=== PATIENT | female | born 1955 | race Caucasian/White ===

== ENCOUNTER 2018-04-08 07:36 | Day surgery (SDC) | payer OTHER ==
[~2018-04-08 07:36] MED LIST: BRIMONIDINE 0.2% OPHTH DROPS 5 ML ONE; BSS/LIDOCAINE/EPINEPHRINE 1 ML SYRINGE ONE; CYCLOPENTOLATE 1% OPHTH DROPS 2 ML ONE; EPINEPHrine 1 MG/ML AMP ONE; KETOROLAC 0.45% OPHTH DROPS ONE; PHENYLEPHRINE 2.5% OPHTH 2 ML DROPS ONE; PROPARACAINE 0.5% OPHTH DROPS 15 ML ONE; TIMOLOL 0.5% OPHTH DROPS ONE; TRIAMCIN/MOXIFLOX OPHTHALMIC 0.6 ML VIAL IO ONE; VANCOMYCIN OPHTHALMI 8MG/0.8ML 8 MG/0.8 ML SYRINGE IO ONE
[2018-04-08] MEDS ORDERED: KETOROLAC 0.45% OPHTH DROPS LEFTEYE ONE (07:51)
[2018-04-08] MEDS ORDERED: PROPARACAINE 0.5% OPHTH DROPS 15 ML LEFTEYE ONE ×2 (07:51→09:21)
[2018-04-08] MEDS ORDERED: PHENYLEPHRINE 2.5% OPHTH 2 ML DROPS LEFTEYE ONE (07:51)
[2018-04-08] MEDS ORDERED: LACTATED RINGERS 500 ML IV ONE (07:51)
[2018-04-08] MEDS ORDERED: CYCLOPENTOLATE 1% OPHTH DROPS 2 ML LEFTEYE ONE ×2 (07:51→09:22)
--- NOTE | 2018-04-08 08:42 | ANESTHESIA ---
Pre-Anesthesia VS, & Labs - Diagnosis Left eye senile combined cataract - Procedure Left eye cataract extraction with IOL implant Vital Signs: Temp Pulse Resp BP Pulse Ox 36.6 C 79 18 113/71 97 04/08/18 07:52 04/08/18 07:52 04/08/18 07:52 04/08/18 07:52 04/08/18 07:52 Height 5 ft 6 in Weight (kg) 81.9 kg - NPO >8 hours - Is Patient ?: No Home Medications and Allergies Home Medications: Ambulatory Orders Gabapentin [Neurontin] 300 mg PO TID 04/07/18 Losartan Potassium 50 mg PO DAILY 04/07/18 hydroCHLOROthiazide [Hydrodiuril] 12.5 mg PO DAILY 04/07/18 raNITIdine [Zantac] 150 mg PO DAILY 04/07/18 amLODIPine [Norvasc] PO DAILY 04/08/18 Gabapentin [Neurontin] 300 mg PO TID 04/07/18 Losartan Potassium 50 mg PO DAILY 04/07/18 hydroCHLOROthiazide [Hydrodiuril] 12.5 mg PO DAILY 04/07/18 raNITIdine [Zantac] 150 mg PO DAILY 04/07/18 Allergies/Adverse Reactions: Allergies Allergy/AdvReac Type Severity Reaction Status Date / Time Penicillins AdvReac Hives Verified 04/07/18 14:12 Sulfa (Sulfonamide AdvReac Hives Verified 04/07/18 14:12 Antibiotics) Anes History & Medical History - Anesthetic History Anesthesia Complications: reports: No previous complications - Medical History Cardiovascular: reports: Hypertension, Pulmonary embolism Pulmonary: reports: None Gastrointestinal: reports: GERD (poorly controlled) Urinary: reports: None Neuro: reports: Peripheral neuropathy (bilateral leg neuropathy) Musculoskeletal: reports: Chronic back pain Endocrine/Autoimmune: reports: Other (thyroid nodules) Blood Disorders: reports: None Skin: reports: None Smoking Status: Former smoker (Quit 5 years ago) Psychosocial: reports: Alcohol (2 mixed drinks per day) - Surgical History Eyes Ears Nose Throat (EENT): Cataracts Gynecologic: Other (Ectopic pregnacy x2, breast lumpectomy) Orthopedic: Spine surgery (Neck and back), Other (ganglion cyst removal) Exam General: Alert, Oriented x3, Cooperative, No acute distress Dental: Dentures full Upper Mouth Openin Fingerbreadth Neck Mobility: Reduced Mallampati classification: III Thyromental Distance: 4-6 cm Respiratory: Lungs clear, Normal breath sounds, No respiratory distress, No accessory muscle use Cardiovascular: Regular rate, Normal S1, Normal S2, No murmurs Mental/Cognitive Status: Alert/Oriented X3, Normal for patient Plan Anesthesia Type: MAC Consent for Procedure(s) Verified and Reviewed: Yes Code Status: Attempt Resuscitation ASA classification: 2-Mild systemic disease Is this case an emergency?: No
[2018-04-08] MEDS ORDERED: MIDAZOLAM 2 MG/2 ML VIAL IVP ONE (09:10)
[2018-04-08] MEDS ORDERED: EPINEPHrine 1 MG/ML AMP IVP ONE (09:20)
[2018-04-08] MEDS ORDERED: BRIMONIDINE 0.2% OPHTH DROPS 5 ML OPTH ONE (09:20)
[2018-04-08] MEDS ORDERED: BSS/LIDOCAINE/EPINEPHRINE 1 ML SYRINGE IO ONE (09:21)
[2018-04-08] MEDS ORDERED: TIMOLOL 0.5% OPHTH DROPS OPTH ONE (09:21)
[2018-04-08] MEDS ORDERED: CHONDR SULF/HYALURONATE SYRINGE IO ONE (09:21)
[2018-04-08 09:36] VITALS: BP 107/65
--- NOTE | 2018-04-08 12:07 | OPERATIVE REPORT ---
DATE OF SERVICE: 04/08/2018 Physician: John Mabry MD PREOPERATIVE DIAGNOSIS: Visually significant cataract, left eye. Cataract surgery was performed on the right eye in June 2012 by a different surgeon. POSTOPERATIVE DIAGNOSIS: Visually significant cataract, left eye. Cataract surgery was performed on the right eye in June 2012 by a different surgeon. PROCEDURE: Phacoemulsification with posterior chamber intraocular lens implant, left eye. SURGEON: John Mabry MD ANESTHESIA: Monitored anesthesia care. COMPLICATIONS: None. OPERATIVE INDICATIONS: This is a 62-year-old woman with progressive vision loss in the left eye due to 2-3+ nuclear sclerotic and 1+ posterior subcapsular cataract. Best corrected visual acuity was 20 /60 with glare to 20/400 in the left eye. Indications for surgery are overall decrease in vision, di fficulty seeing words on a computer screen, difficulty reading; difficulty seeing street signs, diffi culty driving at low light or at night, difficulty driving at night because of headlights from other vehicles, difficulty with glare or bright lights in any situation, and difficulty tracking a golf [employer] She was consented at length concerning risks and benefits of cataract surgery, after which she ex pressed a desire to proceed with surgery. OPERATIVE PROCEDURE: The patient was taken to the OR #3 and placed under monitored anesthesia care. A surgical timeout was conducted confirming correct patient, correct procedure, and correct surgical site. She was given topical anesthesia, and then prepped and draped in the usual sterile fashion. The eye was entered at the 6 and 3 o'clock positions. Intracameral Shugarcaine was injected into the anterior chamber, followed by Viscoat. A continuous-tear curvilinear capsulorrhexis was performed. The nucleus was hydrodissected and phacoemulsified. The cortex was evacuated using automated infusi on and aspiration. Provisc was injected in the capsular bag, and a 22.5 diopter intraocular lens was inserted in the bag. Approximately 0.8 mL of a mixture of triamcinolone, moxifloxacin, and vancomyc in was injected subconjunctivally in the superior quadrant for infection and inflammation prophylaxis . I and A was used to evacuate the viscoelastic materials. The eye was inflated to physiologic pres sure using balanced salt solution and found to be watertight. The patient was taken from the operati ng room in good condition and given postop instructions. TD: 04/08/2018 09:38
== END 2018-04-08 07:37 | disposition home or self-care (01) ==
LOC: SDS 07:36
PROVIDERS: ATTEND Ophthalmology
PROC: 08RK3JZ Replacement of Left Lens with Synthetic Substitute, Percutaneous Approach (ICD-10-PCS; principal; 2018-04-08 09:00)
DX: H25.812 Combined forms of age-related cataract, left eye (principal); I10 Essential (primary) hypertension; G62.9 Polyneuropathy, unspecified; Z87.891 Personal history of nicotine dependence; Z86.711 Personal history of pulmonary embolism
CPT/HCPCS: 66984; A9270; J3490; V2632

== ENCOUNTER 2018-08-27 14:34 | Outpatient (CLI) | payer OTHER ==
--- NOTE | 2018-08-27 14:59 | XRAY Report ---
Reason: COUGH Procedure Date: 08/27/2018 Accession Number: [id number] / [id number] Procedure: XR - Chest 2 View X-Ray CPT Code: 22381 FULL RESULT: EXAM: CHEST RADIOGRAPHY EXAM DATE: 08/27/2018 02:52 PM. CLINICAL HISTORY: Cough COMPARISON: None. TECHNIQUE: 2 views. FINDINGS: Lungs/Pleura: No evidence of lobar consolidation. There is reticular opacity within the lingula which probably represent scarring or atelectasis. No pleural effusion. No pneumothorax. Normal volumes. Mediastinum: Heart and mediastinal contours are unremarkable. Other: None. IMPRESSION: No acute intrathoracic plain film abnormality. RAD[facility] The call report notification system was initiated by Dr. Elle Fernando at 02:58 PM on 08/27/2018.
== END 2018-08-27 14:35 | disposition home or self-care (01) ==
LOC: DI 14:34
PROVIDERS: ATTEND Internal Medicine
DX: R05 Cough (principal)
CPT/HCPCS: 71046

== ENCOUNTER 2018-09-10 08:16 | Outpatient (CLI) | payer OTHER ==
--- NOTE | 2018-09-10 16:20 | Ultrasound Report ---
Reason: ABDOMINAL MASS,THYROID NODULES Procedure Date: 09/10/2018 Accession Number: [id number] / [id number] Procedure: US - Abdomen Complete CPT Code: FULL RESULT: EXAM: ABDOMEN ULTRASOUND EXAM DATE: 09/10/2018 09:44 AM. CLINICAL HISTORY: History of abdominal mass right anterior abdomen from exam in [place] years ago. Asymptomatic today. COMPARISON: None. TECHNIQUE: Real-time scanning was performed with static images obtained. FINDINGS: Liver: Upper limits of normal in size. Mild diffuse increased echotexture likely indicating fatty infiltration. 18.3 cm. Main portal vein flow: Hepatopetal. Gallbladder: Normal. No stones, wall thickening, or sonographic Stevenson's sign. Biliary System: Common bile duct measures 5 mm. No intrahepatic or extrahepatic ductal dilatation. Pancreas: Visualized portion is unremarkable. Kidneys: Right: 11.1 cm longitudinally. Normal. No contour-deforming mass, stones, or hydronephrosis. Left: 11.5 cm longitudinally. Normal. No contour-deforming mass, stones, or hydronephrosis. Spleen: 11.6 cm. Normal in size and echotexture. Aorta and Inferior Vena Cava: Unremarkable. Other: Targeted ultrasound with high-frequency linear transducer was performed of the right lower abdomen standing and supine with and without Valsalva. No masses or hernia appreciated. IMPRESSION: 1. No sonographic finding in the region of concern/history of palpable mass right anterior low abdominal wall. 2. Probable mild hepatic steatosis. 3. Otherwise no specific abnormalities demonstrated. [facility]
--- NOTE | 2018-09-11 10:21 | Ultrasound Report ---
Reason: ABDOMINAL MASS,THYROID NODULES Procedure Date: 09/10/2018 Accession Number: [id number] / [id number] Procedure: US - Head or Neck Soft Tissue CPT Code: FULL RESULT: EXAM: THYROID ULTRASOUND EXAM DATE: 09/10/2018 09:44 AM. CLINICAL HISTORY: ABDOMINAL MASS,THYROID NODULES. COMPARISON: None. TECHNIQUE: Real time sonographic imaging of the thyroid was performed by the sole splitter. Multiple uniforms sales representative static images were saved for review. FINDINGS: THYROID GLAND: Right Lobe: 5.4 x 1.6 x 1.8 cm, volume 8.4 cc. Normal background echotexture. Right Lobe Nodules: 1. Mid pole lateral 7 x 5 x 6 mm hypoechoic solid nodule. 2. Mid pole medial 6 x 5 x 6 mm hypoechoic solid nodule. 3. Lower pole 13 x 12 x 10 mm predominantly cystic complex nodule. Left Lobe: 4.8 x 1.6 x 1.7 cm, volume 6.9 cc. Normal background echotexture. Left Lobe Nodules: 1. Mid pole 3 x 2 x 3 mm solid calcified nodule. Isthmus: 0.2 cm AP. Isthmic Nodules: None. LYMPH NODES: There are a few bilateral jugular chain lymph nodes, measuring up to 13 x 5 x 5 mm at right level II neck and 12 x 5 x 5 mm at left level III neck. OTHER: None. IMPRESSION: 1. Bilateral thyroid nodules measuring up to 13 mm at the lower pole of the right thyroid lobe. Recommend continued ultrasound surveillance in 12-24 months. 2. Few nonspecific bilateral jugular chain lymph nodes. Management recommendations are based on 2015 [place] [employer] Management Guidelines for Adult Patients with Thyroid Nodules and Differentiated Thyroid Cancer. [facility]
== END 2018-09-10 08:17 | disposition home or self-care (01) ==
LOC: DI 08:16
PROVIDERS: ATTEND Internal Medicine
DX: R19.00 Intra-abdominal and pelvic swelling, mass and lump, unspecified site (principal); E04.2 Nontoxic multinodular goiter
CPT/HCPCS: 76536; 76700

== ENCOUNTER 2019-05-03 12:47 | Outpatient (CLI) | payer MEDICARE, OTHER ==
--- NOTE | 2019-05-03 13:40 | Ultrasound Report ---
Reason: EDEMA Procedure Date: 05/03/2019 Accession Number: [id number] / [id number] Procedure: US - Duplex Ext Veins Right CPT Code: Final Report FULL RESULT: EXAM: RIGHT LOWER EXTREMITY VENOUS ULTRASOUND EXAM DATE: 05/03/2019 01:16 PM. CLINICAL HISTORY: EDEMA. COMPARISON: None. TECHNIQUE: Real-time sonographic vascular imaging was performed by the home connect lpn through the lower extremity utilizing both color-flow and Doppler spectral analysis. Multiple eligibility services representative static images were saved for review. FINDINGS: Common Femoral Vein (CFV): Normal. CFV-GSV Junction: Normal. Profunda Femoral Vein (PFV): Normal. Femoral Vein (FV) Prox: Normal. Femoral Vein (FV) Mid: Normal. Femoral Vein (FV) Dist: Normal. Popliteal Vein: Normal. Posterior Tibial Veins: Normal. Peroneal Veins: Normal. Other: None. IMPRESSION: No evidence for deep venous thrombosis. [facility]
== END 2019-05-03 12:48 | disposition home or self-care (01) ==
LOC: DI 12:47
PROVIDERS: ATTEND Internal Medicine
DX: R60.0 Localized edema (principal)

== ENCOUNTER 2019-12-13 12:05 | Outpatient (CLI) | payer MEDICARE, OTHER ==
[~2019-12-13 12:05] MED LIST changes: -BRIMONIDINE 0.2% OPHTH DROPS 5 ML ONE; -BSS/LIDOCAINE/EPINEPHRINE 1 ML SYRINGE ONE; +BUFFERED LIDOCAINE 10 ML SYRINGE ONE; -CYCLOPENTOLATE 1% OPHTH DROPS 2 ML ONE; -EPINEPHrine 1 MG/ML AMP ONE; -KETOROLAC 0.45% OPHTH DROPS ONE; -PHENYLEPHRINE 2.5% OPHTH 2 ML DROPS ONE; -PROPARACAINE 0.5% OPHTH DROPS 15 ML ONE; -TIMOLOL 0.5% OPHTH DROPS ONE; -TRIAMCIN/MOXIFLOX OPHTHALMIC 0.6 ML VIAL IO ONE; -VANCOMYCIN OPHTHALMI 8MG/0.8ML 8 MG/0.8 ML SYRINGE IO ONE
[2019-12-13] MEDS ORDERED: BUFFERED LIDOCAINE 10 ML SYRINGE IU ONE (14:10)
--- NOTE | 2019-12-16 13:34 | Ultrasound Report ---
ULTRASOUND GUIDED BIOPSY LEFT BREAST USING VACUUM DEVICE WITH MARKING DEVICE INSERTED AND POST DIGITA L MAMMOGRAPHIC IMAGIN12/13/2019 CLINICAL: Left breast nodule. PATIENT CONSENT: Risks (minor bleeding, infection, vasovagal reaction and repeat procedure), benefits and alternatives were explained to the patient and written informed consent was obtained. Correlation is made to exams dated: 11/25/2019 ultrasound and 11/25/2019 ultrasound - [facility]. An ultrasound guided biopsy using real-time ultrasound was performed for the mass located in the left breast at 12 o'clock middle depth. This was described on the previous ultrasound report. The skin was prepped in the usual manner. Local anesthetic was administered to the access site. A skin chito was made in the breast. The abnormality was approached from the lateral aspect. A 12 gauge biopsy n eedle was placed adjacent to the abnormality under ultrasound guidance. Once the needle was document ed to be in the correct location, three specimens were obtained using the [employer] system. A cli p was inserted into the biopsy cavity. A skin closure strip and a sterile dressing were applied to t he access site. Post procedure digital mammographic imaging demonstrates the location device at the targeted area and partial removal of the abnormality. The specimens were sent to the laboratory for pathological analysis. IMPRESSION: ULTRASOUND GUIDED BIOPSY BENIGN Ultrasound guided biopsy of the mass in the left breast at 12 o'clock middle depth was successful wit h no apparent post procedure complications. Pathology indicates benign fibrocystic changes (FC) with micro-calcifications present. Pathology results are concordant with imaging findings. Return to annual mammogram screening schedule is recommended. This exam was interpreted at Station ID: [id number]. Marquis White M.D., jr/spring:12/16/2019 13:24:13 BI-RADS CATEGORY: () - RECOMMENDATION: (ANNUAL) - Recommend routine annual screening mammography. [id number] return to screening LATERALITY: (B)
== END 2019-12-13 12:06 | disposition home or self-care (01) ==
LOC: DI 12:05
PROVIDERS: ATTEND Internal Medicine
DX: N60.12 Diffuse cystic mastopathy of left breast (principal); R92.0 Mammographic microcalcification found on diagnostic imaging of breast
CPT/HCPCS: 19083

== ENCOUNTER 2020-07-04 14:20 | Outpatient (CLI) | payer MEDICARE, OTHER ==
--- NOTE | 2020-07-04 16:12 | MRI Report ---
PROCEDURE: Lumbar Spine W/O INDICATIONS: LUMBAR SPINE TECHNIQUE: Noncontrast sagittal T1 spin echo and T2 fast echo, sagittal STIR, axial T1 and T2 fast spin echo thr ough the lumbar spine. In cases with scoliosis, additional coronal T2 fast spin echo may be performe d. COMPARISON: None. FINDINGS: Image quality: Excellent. Alignment and Curvature: No plain films are available for comparison. Thus, for numbering purposes, 5 lumbar type vertebral bodies will be presumed for the current report. This should be confirmed with plain film correlation prior to any lumbar spinal intervention. There is loss of normal lumbar lordo sis. Mild grade 1 retrolisthesis of L4 on L5 and L5 on S1. Bone Marrow: Marrow is of normal overall signal. No acute vertebral body compression fractures. Mi ld reactive signal within the endplates adjacent to the L3-L4, L4-L5, and L5-S1 intervertebral discs. Spinal Cord: Conus medullaris terminates at the upper L1 level. Visualized cord demonstrates normal signal and size. Paraspinous Soft Tissues: No paravertebral masses. T12-L1: Normal in appearance. L1-L2: Mild disc height loss and desiccation. Mild diffuse disc bulge. Mild facet and ligament fla vum hypertrophy. Mild epidural lipomatosis. Mild canal stenosis. No foraminal stenosis. L2-L3: Mild disc height loss and desiccation. Mild diffuse disc bulge. Mild facet and ligament fla vum hypertrophy. Mild epidural lipomatosis. Mild canal stenosis. Mild bilateral foraminal stenosis. L3-L4: Mild disc height loss and desiccation. Moderate facet hypertrophy. Mild ligament flavum hype rtrophy. Mild epidural lipomatosis. Mild canal stenosis. Mild left greater than right foraminal steno sis. L4-L5: Moderate disc height loss and desiccation. Mild diffuse disc bulge with superimposed small c entral protrusion. Mild facet and ligament flavum hypertrophy. Mild epidural lipomatosis. Mild canal stenosis. Mild right and moderate left foraminal stenosis. L5-S1: Moderate disc height loss and desiccation. Mild diffuse disc bulge with superimposed broad-b ased right posterolateral and far lateral protrusion/osteophyte. Mild facet and ligament flavum hyper trophy. Mild epidural lipomatosis. Moderate canal stenosis. Moderate left and severe right foraminal stenosis. Right L5 nerve root compression. IMPRESSION: 1. Multilevel degenerative disc and facet disease, in addition to epidural lipomatosis and ligamentum flavum hypertrophy. 2. Multilevel canal stenoses, worst at L5-S1 where there is moderate canal stenosis. 3. Multilevel foraminal stenoses, worst at L5-S1 where there is associated intraforaminal nerve root compression. Recommend correlation with clinical symptoms to ascertain relevance of this finding. Reviewed by: Carmen Gautam MD on 07/04/2020 4:11 PM PST Approved by: Carmen Gautam MD on 07/04/2020 4:11 PM PST Station ID: [id number]
--- NOTE | 2020-07-04 16:44 | MRI Report ---
PROCEDURE: Hip LT W/O INDICATIONS: L HIP PAIN TECHNIQUE: Noncontrast coronal T1 spin echo and STIR through the bony pelvis. Coronal and axial T2 fast spin ec ho with fat saturation, sagittal T1 spin echo, and oblique axial T2 fast spin echo with fat saturatio n through the hip. COMPARISON: None. FINDINGS: Image quality: Excellent. Bones and joints: Asymmetric moderate left hip joint osteoarthritic changes are seen with joint spac e narrowing, subchondral sclerosis and cyst formation. Marginal osteophyte formation is also noted. N o intraosseous lesions or fractures. No avascular necrosis of the femoral heads. The visualized low er lumbar spine appears normally aligned. Small to moderate amount of left hip joint effusion is see n, no gross intra-articular loose body. Tendons: The gluteus medius and minimus tendons appear intact, without associated muscle atrophy. T he iliopsoas tendon appears intact, without adjacent bursal fluid collections. The origin of the ham string tendon is intact at the ischial tuberosity. Labrum and cartilage: There is extensive superior anterior left hip labral tear. Diffuse thinning of articulating cartilages in left hip is also seen. The alpha angle of the femur is within normal limit s at less than 55 degrees. Soft tissues: Visualized muscles demonstrate normal bulk and internal signal. The proximal sciatic neurovascular bundle appears normal adjacent to the hamstring tendons. No free pelvic fluid. Bladde r wall thickness is normal. Genitourinary structures and bowel loops appear normal where visualized. IMPRESSION: 1. Asymmetric moderate left hip joint osteoarthritis. No hip fracture or dislocation. No evidence of avascular necrosis of femoral head. 2. Extensive superior anterior left hip labral tear. 3. No gross focal left hip muscle or tendon signal abnormality. Reviewed by: Sina Jackson MD on 07/04/2020 4:42 PM PST Approved by: Sina Jackson MD on 07/04/2020 4:42 PM PST Station ID: [id number]
== END 2020-07-04 14:21 | disposition home or self-care (01) ==
LOC: DI 14:20
PROVIDERS: ATTEND Physician Assistant
DX: M47.26 Other spondylosis with radiculopathy, lumbar region (principal); M51.17 Intervertebral disc disorders with radiculopathy, lumbosacral region; M48.07 Spinal stenosis, lumbosacral region; M25.552 Pain in left hip; M16.12 Unilateral primary osteoarthritis, left hip; S73.192A Other sprain of left hip, initial encounter

== ENCOUNTER 2020-08-31 14:47 | Outpatient (CLI) | payer MEDICARE, OTHER ==
[2020-08-31 15:06] LABS: BASOPHILS # (AUTO) 0.1 10^3/uL (0.0-0.1); BASOPHILS % (AUTO) 1.1 %; EOSINOPHILS # (AUTO) 0.1 10^3/uL (0.0-0.7); EOSINOPHILS % (AUTO) 2.5 %; HCT - HEMATOCRIT 41.1 % (37.0-47.0); HGB - HEMOGLOBIN 13.7 g/dL (12.0-16.0); LYMPHOCYTES # (AUTO) 1.2 10^3/uL (1.5-3.5); LYMPHOCYTES % (AUTO) 27.9 %; MEAN CORPUSCULAR HEMOGLOBIN 33.7 pg (27.0-31.0); MEAN CORPUSCULAR HGB CONC 33.3 g/dL (32.0-36.0); MEAN CORPUSCULAR VOLUME 101.2 fL (81.0-99.0); MEAN PLATELET VOLUME 9.9 fL (7.9-10.8); MONOCYTES # (AUTO) 0.6 10^3/uL (0.0-1.0); MONOCYTES % (AUTO) 12.4 %; NEUTROPHILS # (AUTO) 2.5 10^3/uL (1.5-6.6); NEUTROPHILS % (AUTO) 55.6 %; PLT - PLATELET COUNT 172 10^3/uL (130-450); RED BLOOD COUNT 4.06 10^6/uL (4.20-5.40); RED CELL DISTRIBUTION WIDTH 13.2 % (12.0-15.0); WHITE BLOOD COUNT 4.4 x10^3/uL (4.8-10.8)
[2020-08-31 15:20] LABS: ALBUMIN 3.9 g/dL (3.2-5.5); ALBUMIN/GLOBULIN RATIO 0.9 (1.0-2.2); BILIRUBIN,TOTAL 1.4 mg/dL (0.2-1.0); CALCIUM 9.8 mg/dL (8.5-10.3); CREATININE 0.7 mg/dL (0.4-1.0); POTASSIUM 4.2 mmol/L (3.5-5.0); TOTAL PROTEIN 8.4 g/dL (6.7-8.2)
== END 2020-08-31 14:48 | disposition home or self-care (01) ==
LOC: LAB 14:47
PROVIDERS: ATTEND Nurse Practitioner Family
DX: Z01.812 Encounter for preprocedural laboratory examination (principal)
CPT/HCPCS: 36415; 80053; 85025

== ENCOUNTER 2020-12-24 08:00 | Outpatient (CLI) | payer MEDICARE, OTHER ==
[2020-12-24 17:59] LABS: BASOPHILS # (AUTO) 0.1 10^3/uL (0.0-0.1); BASOPHILS % (AUTO) 1.2 %; EOSINOPHILS # (AUTO) 0.1 10^3/uL (0.0-0.7); EOSINOPHILS % (AUTO) 1.2 %; HCT - HEMATOCRIT 37.2 % (37.0-47.0); HGB - HEMOGLOBIN 12.1 g/dL (12.0-16.0); LYMPHOCYTES # (AUTO) 1.3 10^3/uL (1.5-3.5); MEAN CORPUSCULAR HEMOGLOBIN 33.8 pg (27.0-31.0); MEAN CORPUSCULAR HGB CONC 32.5 g/dL (32.0-36.0); MEAN CORPUSCULAR VOLUME 103.9 fL (81.0-99.0); MEAN PLATELET VOLUME 10.9 fL (7.9-10.8); MONOCYTES # (AUTO) 0.6 10^3/uL (0.0-1.0); MONOCYTES % (AUTO) 14.8 %; NEUTROPHILS # (AUTO) 2.3 10^3/uL (1.5-6.6); NEUTROPHILS % (AUTO) 52.6 %; PLT - PLATELET COUNT 143 10^3/uL (130-450); RED BLOOD COUNT 3.58 10^6/uL (4.20-5.40); RED CELL DISTRIBUTION WIDTH 14.3 % (12.0-15.0); WHITE BLOOD COUNT 4.3 x10^3/uL (4.8-10.8)
[2020-12-24 18:31] LABS: ALBUMIN 3.8 g/dL (3.2-5.5); ALBUMIN/GLOBULIN RATIO 0.9 (1.0-2.2); ALKALINE PHOSPHATASE 151 IU/L (42-121); ALT ALANINE AMINOTRANSFERASE 41 IU/L (10-60); AST ASPARTATE AMINOTRANSFERASE 113 IU/L (10-42); BILIRUBIN,TOTAL 2.2 mg/dL (0.2-1.0); BUN - BLOOD UREA NITROGEN 13 mg/dL (6-20); CALCIUM 9.4 mg/dL (8.5-10.3); CARBON DIOXIDE - CO2 23 mmol/L (21-32); CHLORIDE 95 mmol/L (101-111); GFR - MDRD 55 (>89); GLUCOSE 107 mg/dL (70-100); POTASSIUM 4.3 mmol/L (3.5-5.0); SODIUM 134 mmol/L (135-145)
[2020-12-25 18:26] LABS: CHOL/HDL RATIO 3.2 (<4.4); CHOLESTEROL 134 mg/dL; HDL CHOLESTEROL 42 mg/dL; LDL CHOLESTEROL,CALCULATED 63 mg/dL; LDL/HDL RATIO 1.5 (<4.4); TRIGLYCERIDES 143 mg/dL; VLDL CHOLESTEROL 29 mg/dL
[2020-12-26 10:11] LABS: IMMUNOGLOBULIN A 397 mg/dL (70-320); IMMUNOGLOBULIN G 1461 mg/dL (600-1540); IMMUNOGLOBULIN M 1143 mg/dL (50-300)
[2020-12-26 11:41] LABS: ALBUMIN 3.7 g/dL (3.8-4.8); ALPHA 1 GLOBULIN 0.3 g/dL (0.2-0.3); ALPHA 2 GLOBULIN 0.7 g/dL (0.5-0.9); BETA 1 GLOBULIN 0.4 g/dL (0.4-0.6); BETA 2 GLOBULIN 0.4 g/dL (0.2-0.5); GAMMA GLOBULIN 2.1 g/dL (0.8-1.7)
== END 2020-12-24 23:59 | disposition home or self-care (01) ==
LOC: LAB.WCP 08:00
PROVIDERS: ATTEND Family Medicine
DX: I10 Essential (primary) hypertension (principal); R77.1 Abnormality of globulin
CPT/HCPCS: 36415; 80053; 80061; 81599; 82784; 83721; 84155; 84165; 85025; 86334

== ENCOUNTER 2021-01-06 10:55 | Outpatient (CLI) | payer MEDICARE, OTHER ==
--- NOTE | 2021-01-06 17:29 | Ultrasound Report ---
PROCEDURE: Abdomen Complete INDICATIONS: ABNORMAL LIVER FUNCTION TESTS TECHNIQUE: Real-time scanning was performed of the abdominal and retroperitoneal organs, with image documentatio n. COMPARISON: Abdominal ultrasound 09/10/2018. FINDINGS: Liver: Normal in size. Increased echogenicity. Coarsened echotexture. Lobulated liver contour. Gallbladder: Gallbladder is nondistended. No stones or sludge. No gallbladder wall thickening. Suspec t meniscal adjacent free fluid. Negative sonographic Stevenson sign. Biliary ducts: Intrahepatic bile ducts are non-dilated. Extrahepatic bile duct caliber measures 5 m m. Normal is 6-7 mm or less in diameter, or 10 mm or less post-cholecystectomy. Pancreas: Visualized portions of the pancreas are sonographically normal. Spleen: Spleen is normal in size and homogeneous in echotexture. Measures 11.8 cm. Volume 377 cc. Kidneys: Kidneys are normal in size and echotexture. Right kidney measures 10.8 cm long; left kidne y measures 10.6 cm long. No hydronephrosis or nephrolithiasis. No solid masses. Aorta: Visualized aorta is normal in caliber at less than 3 cm. Elevated velocity in the distal aort a. Peak systolic velocity 209 cm/s. Iliacs: Proximal common iliac arteries are normal in caliber at less than 2.5 cm. Right GILBERTO peak sy stolic velocity 140 left CVA not well seen due to plaque and overlying bowel gas. Cm/s. IVC: Intrahepatic inferior vena cava is patent. Miscellaneous: No free abdominal fluid. IMPRESSION: 1. Increased echogenicity of the hepatic parenchyma. This is most commonly seen in hepatic steatosis or hepatocellular disease. 2. Suspect trace free fluid adjacent to the gallbladder. No acute cholecystitis demonstrated. No gall stones. 3. Calcified atherosclerotic plaque in the aortoiliac arteries. There is elevated velocities in the d istal aorta suggesting stenosis. 4. No hydronephrosis. Reviewed by: Pravin Oconnor MD on 01/06/2021 4:27 PM GREG[facility] Approved by: Pravin Oconnor MD on 01/06/2021 4:27 PM GREGORY Station ID: [id number]
== END 2021-01-06 10:56 | disposition home or self-care (01) ==
LOC: DI 10:55
PROVIDERS: ATTEND Family Medicine
DX: R94.5 Abnormal results of liver function studies (principal); I70.8 Atherosclerosis of other arteries

== ENCOUNTER 2021-01-27 13:30 | Emergency (ER) | payer MEDICARE, OTHER ==
[2021-01-27 13:48] VITALS: BP 95/55
[2021-01-27] MEDS ORDERED: HYDROmorphone 1 MG/ML CARPUJECT IVP STA (14:06)
--- NOTE | 2021-01-27 14:10 | ED Physician Documentation ---
History of Present Illness - Stated complaint Stated Complaint: BACK PX - Chief complaint Chief Complaint: Back Pain - Additonal information Additional information: 65-year-old female presents the emergency department for evaluation of acute on chronic low back pain. This has been an ongoing problem for many years. In fact she is scheduled to see the spine surgeon tomorrow at [facility]. 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 She has had no fevers, no saddle anesthesia. No loss of bowel or bladder dysfunction. She has had previous surgery on her back but has been told that she needs fusion at multiple levels. She has taken ibuprofen as well as some tramadol with limited relief of pain. She is ambulatory though she has a halting gait. Pain is sharp but does not radiate from the back Review of Systems Constitutional: denies: Fever, Chills Eyes: reports: Reviewed and negative Nose: reports: Reviewed and negative Throat: reports: Reviewed and negative Cardiac: reports: Reviewed and negative Respiratory: reports: Reviewed and negative GI: reports: Reviewed and negative : reports: Reviewed and negative Skin: reports: Reviewed and negative Musculoskeletal: reports: Back pain. 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 VERTICAL: Other HEENT: Cataracts - Present Medications Home Medications: Ambulatory Orders Medication Instructions Recorded Confirmed Gabapentin [Neurontin] 300 mg PO TID 04/07/18 04/07/18 Losartan Potassium 50 mg PO DAILY 04/07/18 04/07/18 hydroCHLOROthiazide [Hydrodiuril] 12.5 mg PO DAILY 04/07/18 04/07/18 raNITIdine [Zantac] 150 mg PO DAILY 04/07/18 04/07/18 amLODIPine [Norvasc] PO DAILY 04/08/18 HYDROcod/ACETAM 5/325 [[place] 5/325] 1 tablet PO BID PRN #10 tablet 01/27/21 methocarbamoL [Methocarbamol] 750 mg PO BID PRN #15 tablet 01/27/21 - Allergies Allergies/Adverse Reactions: Allergies Allergy/AdvReac Type Severity Reaction Status Date / Time prednisone Allergy Hallucinati Verified 01/27/21 13:49 ons Penicillins AdvReac Hives Verified 01/27/21 13:48 Sulfa (Sulfonamide AdvReac Hives Verified 01/27/21 13:48 Antibiotics) - Social History Does the pt smoke?: No Smoking Status: Former smoker PD ED PE EXPANDED - General General: Alert, In Pain - Cardiac Cardiac: Regular Rate, Radial strong equal, Pedal strong equal, Cap refill < 2 sec - Respiratory Respiratory: Clear to ausultation faraz. No: Distress, Labored - Abdomen Abdomen: Normal Bowel sounds. No: Tender to palpation - Back Back: Vertebral tenderness, Soft tissue tenderness, Limited ROM, Other (Tenderness across the very low lumbar/sacral region without swelling or erythema. Reduced forward flexion secondary to pain. At baseline patient has paresthesias on the lateral sides of her leg. Motor strength is 5 of 5. 3+ patellar reflexes bilaterally. ). No: Normal exam, Straight leg raise + R, Straight leg raise + L Results - Vitals Vitals: Vital Signs - 24 hr 01/27/21 13:43 Temperature 36.8 C Heart Rate 100 Respiratory 16 Rate Blood Pressure 95/55 L O2 Saturation 99 Oxygen O2 Source Room air PD MEDICAL DECISION MAKING - ED course Complexity details: reviewed results, re-evaluated patient, d/w patient ED course: 65-year-old female presents emergency department for evaluation of acute on chronic low back pain. 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 Persistent pain since. With the exception of age however she does not have any clinical red flags and her exam was fairly reassuring. She is scheduled tomorrow to see [facility] neuro/back surgery. Patient was given 1 mg of Dilaudid here in the ER with good relief of symptoms. I am going to prescribe a limited amount of [place] as well as a muscle relaxer. Emergent return precautions were discussed for worsening symptoms. I am prescribing a short course of short-acting opioid pain medication for this patient. I have reviewed the patients SMASHER and no concerning findings were noted. I have discussed that the opioids are for short term therapy only, and will not be refilled from the ED. Departure - Departure Disposition: 01 Home, Self Care Clinical Impression: Low back pain Qualifiers: Chronicity: unspecified Back pain laterality: bilateral Sciatica presence: without sciatica Qualified Code(s): M54.50 - Low back pain, unspecified Instructions: ED Neck Back Pain General Prescriptions: methocarbamoL [Methocarbamol] 750 mg PO BID PRN #15 tablet PRN Reason: Spasms HYDROcod/ACETAM 5/325 [[place] 5/325] 1 tablet PO BID PRN #10 tablet PRN Reason: Pain Comments: Florencia I hope that your back is feeling better soon and that the surgeon is able to offer you some solutions. I suspect that you have simply exacerbated your chronic longstanding pain. I have electronically sent a prescription for hydrocodone as well as methocarbamol to the [facility] in [place]. Do not miss the follow-up with your back surgeon tomorrow as already scheduled. I also encourage you to follow-up very closely with Dr. Aguilar. She will ultimately be responsible for the management of your back pain in the long-term. I am prescribing a short course of narcotic pain medication for you. These are potentially dangerous and addictive medications that should be used carefully. These medications may constipate you. Take an qwfc-ext-vffxhlz stool softener (docusate) twice daily with plenty of water while taking these medications. If you go 24 hours without a bowel movement, take srwp-tsx-vlcijsz miralax, per package instructions. Do not drink or drive while taking these medications. If you received narcotic or sedating medications while in the emergency department, do not drive for 24 hours. Store this medication in a safe, secure place and out of reach of children. It is a violation of federal law to give or sell this medication to another person or to use in a manner other than prescribed. The ED will not refill narcotic prescriptions, including prescriptions lost or stolen. To dispose of unwanted medications: 1. [facility] at [address] in [place] has a medication drop box. They accept prescription medications (in pil l form) Thursday through Thursday 9:00 a.m. to 5:00 p.m. 2. The [facility] accepts prescription medications (in pill form only) for disposal year round. Call for more information. 3. Contact the [facility] for the next [facility] sponsored prescription drug collection event. , [phone], or [phone]; Note that many narcotic pain relievers also contain Tylenol/acetaminophen. Please ensure that your total dose of acetaminophen from all sources does not exceed 3 g (3000 mg) per day.
[2021-01-27] MEDS ORDERED: HYDROmorphone 1 MG/ML CARPUJECT IM STA (14:21)
== END 2021-01-27 14:35 | disposition home or self-care (01) ==
LOC: ED 13:30
DX: M54.50 Low back pain, unspecified (principal); G89.29 Other chronic pain; I10 Essential (primary) hypertension; Z87.891 Personal history of nicotine dependence
CPT/HCPCS: 96372; 99283; 99284; J1170

== ENCOUNTER 2021-03-15 11:51 | Day surgery (SDC) | payer MEDICARE, OTHER ==
[2021-03-15] MEDS ORDERED: ESMOLOL 100 MG/10 ML VIAL IVP ONE (11:52)
--- NOTE | 2021-03-15 12:06 | ANESTHESIA ---
Pre-Anesthesia VS, & Labs - Diagnosis colon CA screening - Procedure colonoscopy w/biopsies Height: 5 ft 7 in - NPO >8 hours - Is Patient ?: No - Lab Results Lab results reviewed: Yes Home Medications and Allergies Home Medications: Ambulatory Orders Aspirin [Aspirin EC] 81 mg PO DAILY 03/14/21 Famotidine [Pepcid] 20 mg PO DAILY 03/14/21 Losartan Potassium 50 mg PO DAILY 04/07/18 amLODIPine [Norvasc] 5 mg PO DAILY 04/08/18 Aspirin [Aspirin EC] 81 mg PO DAILY 03/14/21 Famotidine [Pepcid] 20 mg PO DAILY 03/14/21 Allergies/Adverse Reactions: Allergies Allergy/AdvReac Type Severity Reaction Status Date / Time prednisone Allergy Hallucinati Verified 01/27/21 13:49 ons Penicillins AdvReac Hives Verified 01/27/21 13:48 Sulfa (Sulfonamide AdvReac Hives Verified 01/27/21 13:48 Antibiotics) Anes History & Medical History - Anesthetic History Anesthesia Complications: reports: No previous complications Family history of Anesthesia Complications: Denies Family history of Malignant Hyperthermia: Denies - Medical History Cardiovascular: reports: Hypertension, Pulmonary embolism Pulmonary: reports: None Gastrointestinal: reports: GERD Urinary: reports: None Neuro: reports: Peripheral neuropathy Musculoskeletal: reports: Chronic back pain Endocrine/Autoimmune: reports: Other Blood Disorders: reports: None Skin: reports: None Smoking Status: Former smoker - Surgical History Eyes Ears Nose Throat (EENT): reports: Cataracts Gynecologic: reports: Other Orthopedic: reports: Spine surgery, Other Exam General: Alert, Oriented x3, Cooperative Dental: Other (implants upper/lower) Mouth Openin Fingerbreadth Neck Mobility: Normal Mallampati classification: II Thyromental Distance: 4-6 cm Respiratory: Lungs clear, Normal breath sounds, No respiratory distress Cardiovascular: Regular rate Neurological: Normal speech Mental/Cognitive Status: Alert/Oriented X3, Normal for patient Cognitive Status: Within normal limits Plan Anesthesia Type: Total IV Consent for Procedure(s) Verified and Reviewed: Yes Code Status: Attempt Resuscitation ASA classification: 2-Mild systemic disease Is this case an emergency?: No
[2021-03-15] MEDS ORDERED: LACTATED RINGERS 1,000 ML IV ONE ×2 (12:15→14:09)
[2021-03-15] MEDS ORDERED: PROPOFOL 500 MG/50 ML 500 MG/50 ML VIAL ONE (13:39)
[2021-03-15 14:32] VITALS: BP 133/77
--- NOTE | 2021-03-15 14:56 | ANESTHESIA POST OP EVALUATION ---
Anesthesia Post Eval - Post Anesthesia Eval Vitals: Last Vital Signs Temp 37.0 C 03/15/21 14:31 Pulse 94 03/15/21 14:31 Resp 16 03/15/21 14:31 BP 133/77 H 03/15/21 14:31 Pulse Ox 98 03/15/21 14:31 CV Function Including HR & BP: Stable Pain Control: Satisfactory Nausea & Vomiting: Negative Mental Status: Baseline Respiratory Status: Airway Patent Hydration Status: Satisfactory Anesthesia Complications: None
== END 2021-03-15 11:52 | disposition home or self-care (01) ==
LOC: SDS 11:51
PROVIDERS: ATTEND Surgery
PROC: 0DBK8ZX Excision of Ascending Colon, Via Natural or Artificial Opening Endoscopic, Diagnostic (ICD-10-PCS; principal; 2021-03-15 13:15)
DX: Z12.11 Encounter for screening for malignant neoplasm of colon (principal); K57.30 Diverticulosis of large intestine without perforation or abscess without bleeding; Z87.891 Personal history of nicotine dependence; K76.9 Liver disease, unspecified; F10.99 Alcohol use, unspecified with unspecified alcohol-induced disorder; Z20.822 Contact with and (suspected) exposure to COVID-19
CPT/HCPCS: 45380; 87635; J7120

== ENCOUNTER 2021-07-09 12:16 | Outpatient (CLI) | payer MEDICARE, OTHER ==
[2021-07-09] MEDS ORDERED: IOVERSOL 320 100 ML VIAL IVP ONE ×2 (13:32→15:08)
[2021-07-09 13:49] LABS: CREATININE 0.7 mg/dL (0.4-1.0)
--- NOTE | 2021-07-09 16:40 | CT Report ---
PROCEDURE: ANGIO ABD RUNOFF W/WO - B/L INDICATIONS: ILIAC ARTERY STENOSIS CONTRAST: IV CONTRAST: Optiray 320 ml: 125 PO CONTRAST: *NO PO CONTRAST TECHNIQUE: After the administration of intravenous contrast, 2 and 5 mm sections acquired from T12 to the feet, with optional delayed image acquisition from the knees to the feet. 3-dimensional maximum intensity projection (MIP) coronal and sagittal reformats, and/or 3-dimensional volume rendering reformatting w as then performed. For radiation dose reduction, the following was used: automated exposure control , adjustment of mA and/or kV according to patient size. COMPARISON: None. FINDINGS: Image quality: Excellent. Extravascular tissues: Lung bases are clear. Heart size is normal. Liver the liver has a nodular a ppearance. The spleen measures 10.9 cm in length. Subcentimeter gallstones are layering near the cyst ic duct. There is questionable gallbladder wall thickening or focal pericholecystic fluid present. Bi liary system is non dilated. Pancreas enhances normally. No adrenal nodules. Kidneys are normal in size and enhancement, without hydronephrosis. Non opacified bowel loops demonstrate normal wall thi ckness. There are extensive sigmoid colon diverticular outpouchings. No mucosal thickening or pericol onic fat stranding. The appendix is thin-walled and gas-filled. No free fluid or air. No retroperito mario or mesenteric adenopathy. No ventral hernias. Bladder wall thickness is normal. No inguinal h ernias or adenopathy. No suspicious bony lesions. Compression deformity at the superior T12 endplate is unchanged from the MRI dated 07/04/2020 Left hip arthroplasty is grossly intact. No vertebral body compression fractures. Abdominal aorta: Dense atheromatous calcifications are present throughout the abdominal aorta. No an eurysmal dilatation. Focal atheromatous calcification within the central aspect of the aorta results in high-grade stenosis at the level of L3. The celiac axis, SMA, bilateral renal arteries, and MANISHA ar e patent without stenoses at the origins. Right lower extremity: A focal high-grade stenosis is present at the origin of the right common lexi c artery secondary to eccentric calcification. Dense atheromatous calcifications are present througho ut the common iliac with multifocal high-grade stenoses. The right internal iliac is patent. The righ t external iliac is patent with moderate stenosis distally secondary to calcification. The right comm on femoral artery is widely patent. The right profundus patent. The right SFA is patent throughout it s course. The right popliteal artery, anterior tibial, posterior tibial, and peroneal arteries are pa tent the level of the foot. Left lower extremity: A focal high-grade stenosis is present at the origin of the left common iliac artery secondary to dense atheromatous calcifications. Moderate stenosis is present more distally wit hin the left common iliac secondary to calcification. The left internal iliac is patent but heavily c alcified. The left external iliac is moderately stenosed secondary to calcification. The left common femoral artery is mildly stenosed. The left profunda is widely patent. An eccentric calcification in the mid left SFA results in moderate stenosis. The SFA is otherwise patent. The popliteal is patent. The anterior tibial, posterior tibial, and peroneal arteries are patent to the level of the foot. IMPRESSION: 1. Focal, dense atheromatous calcification within the aorta at L3 results in focal high-grade stenosi s. 2. Severe stenosis at the origins of the bilateral common iliac artery secondary to atheromatous calc ifications. 3. Moderate focal stenosis within the midportion of the left SFA. 4. Bilateral three-vessel lower extremity runoff. 5. Questionable gallbladder wall thickening or pericholecystic fluid. Nodular surface of the liver valdes ggest cirrhotic transformation. Gallbladder hydrops can be seen in this setting. Right upper quadrant ultrasound is recommended to further characterize these findings and exclude cholecystitis. Reviewed by: Mel Woodward MD on 07/09/2021 4:39 PM PDT Approved by: Mel Woodward MD on 07/09/2021 4:39 PM PDT Station ID: [id number]
== END 2021-07-09 12:17 | disposition home or self-care (01) ==
LOC: DI 12:16
PROVIDERS: ATTEND Family Medicine
DX: I70.0 Atherosclerosis of aorta (principal); I70.202 Unspecified atherosclerosis of native arteries of extremities, left leg
CPT/HCPCS: 36415; 75635; 82565; Q9967

== ENCOUNTER 2021-08-19 11:52 | Emergency (ER) | payer MEDICARE, OTHER ==
[2021-08-19 12:29] LABS: BASOPHILS # (AUTO) 0.1 10^3/uL (0.0-0.1); BASOPHILS % (AUTO) 0.8 %; EOSINOPHILS % (AUTO) 0.7 %; HCT - HEMATOCRIT 30.4 % (37.0-47.0); HGB - HEMOGLOBIN 10.4 g/dL (12.0-16.0); LYMPHOCYTES # (AUTO) 0.7 10^3/uL (1.5-3.5); LYMPHOCYTES % (AUTO) 11.6 %; MEAN CORPUSCULAR HEMOGLOBIN 33.4 pg (27.0-31.0); MEAN CORPUSCULAR HGB CONC 34.2 g/dL (32.0-36.0); MEAN CORPUSCULAR VOLUME 97.7 fL (81.0-99.0); MEAN PLATELET VOLUME 9.9 fL (7.9-10.8); NEUTROPHILS # (AUTO) 4.2 10^3/uL (1.5-6.6); NEUTROPHILS % (AUTO) 69.4 %; PLT - PLATELET COUNT 151 10^3/uL (130-450); RED BLOOD COUNT 3.11 10^6/uL (4.20-5.40); WHITE BLOOD COUNT 6.1 x10^3/uL (4.8-10.8)
[2021-08-19 12:33] LABS: RBC MORPHOLOGY (MULTIPLE) 4+ ANISOCYTOSIS (NORMAL); SLIDE REVIEW? Indicated
[2021-08-19 12:40] LABS: INR 1.9 (0.8-1.2); PT - PROTHROMBIN TIME 20.8 secs (9.9-12.6)
[2021-08-19 12:43] LABS: ALBUMIN 2.7 g/dL (3.2-5.5); ALBUMIN/GLOBULIN RATIO 0.6 (1.0-2.2); BILIRUBIN,TOTAL 7.2 mg/dL (0.2-1.0); CALCIUM 8.7 mg/dL (8.5-10.3); CREATININE 1.1 mg/dL (0.4-1.0); POTASSIUM 3.7 mmol/L (3.5-5.0); TOTAL PROTEIN 7.2 g/dL (6.7-8.2)
--- OUTSIDE RECORDS SUMMARY | 2021-08-19 12:52 | EXTERNAL MEDICAL SUMMARY RPT | Continuity of Care Document ---
:1955 Author Organization [facility] Address [address] [place] [address] Phone Care Team Providers Name Role Phone Scheidt Unavailable Unavailable Allergies No information. Encounters No information. Medications No information. Problems date description facility [id number] Unspecified disorder of synovium and te ndon, left [facility] Results No information.
--- NOTE | 2021-08-19 12:53 | ED Physician Documentation ---
PD HPI ABD PAIN - Stated complaint Stated Complaint: ABD PX,SWELLING - Chief complaint Chief Complaint: Abd Pain - History obtained from History obtained from: Patient, Family - Additional information Additional information: 66-year-old woman with history of alcohol use has noted abdominal distention for the last month. She had a CT done on July 09 demonstrating a cirrhotic liver. It looks like the CT was done for evaluation for vascular disease and there was quite a bit. Prior to that CT being done she fell and hit her left lower ribs on the edge of the bathtub. She thinks she might have a broken rib. This was not noted on the CT read but review of the images show it does show a single rib fracture, of the 10th rib on the left side. Now she presents with painful abdominal swelling and also pedal edema. 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 HEENT: Cataracts - Present Medications Home Medications: Ambulatory Orders Medication Instructions Recorded Confirmed Losartan Potassium 50 mg PO DAILY 04/07/18 08/19/21 amLODIPine [Norvasc] 5 mg PO DAILY 04/08/18 08/19/21 Aspirin [Aspirin EC] 81 mg PO DAILY 03/14/21 08/19/21 Famotidine [Pepcid] 20 mg PO DAILY 03/14/21 08/19/21 Furosemide [Lasix] 20 mg PO DAILY #30 tablet 08/19/21 Ondansetron Odt [Zofran] 4 mg TL Q6H PRN #10 tablet 08/19/21 Spironolactone [Aldactone] 25 mg PO DAILY #30 tablet 08/19/21 oxyCODONE [Roxicodone] 5 mg PO Q4-6H PRN #20 tablet 08/19/21 - Allergies Allergies/Adverse Reactions: Allergies Allergy/AdvReac Type Severity Reaction Status Date / Time prednisone Allergy Hallucinati Verified 01/27/21 13:49 ons Penicillins AdvReac Hives Verified 01/27/21 13:48 Sulfa (Sulfonamide AdvReac Hives Verified 01/27/21 13:48 Antibiotics) - Social History Does the pt smoke?: No Smoking Status: Former smoker PD ED PE NORMAL - Vitals Vital signs reviewed: Yes - General General: Alert and oriented X 3, No acute distress - HEENT HEENT: PERRL, EOMI - Neck Neck: Supple, no meningeal sign, No bony TTP - Cardiac Cardiac: RRR, No murmur - Respiratory Respiratory: No respiratory distress, Clear bilaterally - Abdomen Abdomen: Non tender, Other (She has marked tense ascites, tender over the Left lateral lower ribs.) - Back Back: No CVA TTP, No spinal TTP - Derm Derm: Normal color, Warm and dry - Extremities Extremities: Other (2+ pitting pedal edema of the ankles) - Neuro Neuro: Alert and oriented X 3, Normal speech Results - Vitals Vitals: Vital Signs - 24 hr 08/19/21 08/19/21 12:11 12:15 Temperature 36.4 C L 36.5 C Heart Rate 104 H 104 H Respiratory 16 16 Rate Blood Pressure 90/53 L 90/53 L O2 Saturation 99 99 Oxygen O2 Source Room air - Labs Labs: Laboratory Tests 08/19/21 08/19/21 08/19/21 12:23 12:23 12:23 WBC 6.1 RBC 3.11 L Hgb 10.4 L Hct 30.4 L MCV 97.7 MCH 33.4 H MCHC 34.2 RDW 21.0 H Plt Count 151 MPV 9.9 Neut # (Auto) 4.2 Lymph # (Auto) 0.7 L [place] # (Auto) 1.0 Eos # (Auto) 0.0 Baso # (Auto) 0.1 Absolute Nucleated RBC 0.00 Nucleated RBC % 0.0 Manual Slide Review Indicated RBC Morph Micro Appear 4+ ANISOCYTOSIS PT INR Sodium 131 L Potassium 3.7 Chloride 95 L Carbon Dioxide 19 L Anion Gap 17.0 H BUN 14 Creatinine 1.1 H Estimated GFR (MDRD) 50 L Glucose 101 H Lactic Acid 6.0 H* Calcium 8.7 Total Bilirubin 7.2 H AST 243 H ALT 116 H Alkaline Phosphatase 199 H Total Protein 7.2 Albumin 2.7 L Globulin 4.5 H Albumin/Globulin Ratio 0.6 L Lipase 103 H Ethyl Alcohol 08/19/21 08/19/21 12:23 12:23 WBC RBC Hgb Hct MCV MCH MCHC RDW Plt Count MPV Neut # (Auto) Lymph # (Auto) [place] # (Auto) Eos # (Auto) Baso # (Auto) Absolute Nucleated RBC Nucleated RBC % Manual Slide Review RBC Morph Micro Appear PT 20.8 H INR 1.9 H Sodium Potassium Chloride Carbon Dioxide Anion Gap BUN Creatinine Estimated GFR (MDRD) Glucose Lactic Acid Calcium Total Bilirubin AST ALT Alkaline Phosphatase Total Protein Albumin Globulin Albumin/Globulin Ratio Lipase Ethyl Alcohol < 5.0 PD MEDICAL DECISION MAKING - ED course ED course: 66-year-old woman with progressive ascites, really no sign of spontaneous bacterial peritonitis so I do not think it is necessary to do a paracentesis now. Meld score is 26. She also has pain from her rib fracture. She will be started on diuretics and pain management. I emailed her physician to expedite hepatology referral. Departure - Departure Disposition: Home, Self Care Clinical Impression: Cirrhosis of liver with ascites Qualifiers: Hepatic cirrhosis type: alcoholic cirrhosis Qualified Code(s): K70.31 - Alcoholic cirrhosis of liver with ascites Left rib fracture Qualifiers: Encounter type: initial encounter Rib fracture type: single rib Fracture type: closed Qualified Code(s): S22.32XA - Fracture of one rib, left side, initial encounter for closed fracture Condition: Good Record reviewed to determine appropriate education?: Yes Instructions: Cirrhosis Liver Dc, ED Fx Rib Prescriptions: Spironolactone [Aldactone] 25 mg PO DAILY #30 tablet Furosemide [Lasix] 20 mg PO DAILY #30 tablet oxyCODONE [Roxicodone] 5 mg PO Q4-6H PRN #20 tablet PRN Reason: Pain Ondansetron Odt [Zofran] 4 mg TL Q6H PRN #10 tablet PRN Reason: Nausea / Vomiting Comments: I sent your prescription electronically to [facility] in [place]. As discussed, it is imperative to completely avoid alcohol use. I emailed Dr. Aguilar to expedite your referrals. She will need to see you in the next few days to and repeat labs to check electrolytes while on the diuretics. Return for new or worsening symptoms. Call Dr. Aguilar's office today or tomorrow. I am prescribing a short course of narcotic pain medication for you. These are potentially dangerous and addictive medications that should be used carefully. These medications may constipate you. Take an zgad-lkc-ppipprm stool softener (docusate) twice daily with plenty of water while taking these medications. If you go 24 hours without a bowel movement, take xgfo-vsg-mdhgmos miralax, per package instructions. Do not drink or drive while taking these medications. If you received narcotic or sedating medications while in the emergency department, do not drive for 24 hours. Store this medication in a safe, secure place and out of reach of children. It is a violation of federal law to give or sell this medication to another person or to use in a manner other than prescribed. The ED will not refill narcotic prescriptions, including prescriptions lost or stolen. To dispose of unwanted medications: 1. [facility] at [address] in [place] has a medication drop box. They accept prescription medications (in pill form) Thursday through Thursday 9:00 a.m. to 5:00 p.m. 2. The [facility] accepts prescription medications (in pill form only) for disposal year round. Call for more information. 3. Contact the [facility] for the next [facility] sponsored prescription drug collection event. , [phone], or [phone]; Note that many narcotic pain relievers also contain Tylenol/acetaminophen. Please ensure that your total dose of acetaminophen from all sources does not exceed 3 g (3000 mg) per day.
[2021-08-19] MEDS ORDERED: oxyCODONE 5 MG TABLET PO STA (13:05)
[2021-08-19] MEDS ORDERED: ONDANSETRON ODT 4 MG TABLET TL STA (13:05)
[2021-08-19 13:15] VITALS: BP 100/60
== END 2021-08-19 13:13 | disposition home or self-care (01) ==
LOC: ED 11:52
DX: K70.31 Alcoholic cirrhosis of liver with ascites (principal); S22.32XA Fracture of one rib, left side, initial encounter for closed fracture; W18.2XXA Fall in (into) shower or empty bathtub, initial encounter; I10 Essential (primary) hypertension; Z87.891 Personal history of nicotine dependence
CPT/HCPCS: 36415; 80053; 83605; 83690; 85025; 85610; 99283; 99284; A9270; G0480; Q0162; 80320

== ENCOUNTER 2021-08-26 13:32 | Emergency (ER) | payer MEDICARE, OTHER ==
--- NOTE | 2021-08-26 14:06 | ED Physician Documentation ---
PD HPI SYNCOPE - Stated complaint Stated Complaint: HIGH BP - Chief complaint Chief Complaint: General - History obtained from History obtained from: Patient - History of Present Illness Timing - onset: How many days ago (several days of weakness, lightheaded and lower BP. Seen by ED 08/18 and then PMD couple days after. Was getting referral to GI, and was told to stop all her meds (Prior BP meds as well as newest lasix and spironolactone). Patient states leg edema. Still low BP.) Preceding symptoms: Light headed (no syncope but was lightheaded and feeling week.). No: Headache, Chest pain Contributing factors: Recent med change Similar symptoms before: Has not had sx before Recently seen: Clinic, Emergency Dept Review of Systems Constitutional: denies: Fever, Chills Nose: denies: Rhinorrhea / runny nose, Congestion Throat: denies: Sore throat Cardiac: reports: Pedal edema. denies: Chest pain / pressure, Palpitations, Calf pain Respiratory: denies: Cough GI: reports: Abdominal Pain, Abdominal Swelling, Nausea. denies: Vomiting, Diarrhea, Bloody / black stool : denies: Dysuria, Frequency Skin: denies: Rash, Lesions Musculoskeletal: denies: Neck pain, Back pain Neurologic: reports: Generalized weakness, Near syncope. denies: Syncope Psychiatric: reports: Depressed Endocrine: reports: Weight loss Immunocompromised: denies: Immunocompromised PD PAST MEDICAL HISTORY - Past Medical History Cardiovascular: Hypertension, Pulmonary embolism Respiratory: None Neuro: Peripheral neuropathy Endocrine/Autoimmune: Other GI: GERD : None HEENT: Other Psych: None Musculoskeletal: Chronic back pain Derm: None - Past Surgical History Ortho: Spine surgery, Other /MANAGEMENT CONSULTING: Other HEENT: Cataracts - Present Medications Home Medications: Ambulatory Orders Medication Instructions Recorded Confirmed Losartan Potassium 50 mg PO DAILY 04/07/18 08/19/21 amLODIPine [Norvasc] 5 mg PO DAILY 04/08/18 08/19/21 Aspirin [Aspirin EC] 81 mg PO DAILY 03/14/21 08/19/21 Famotidine [Pepcid] 20 mg PO DAILY 03/14/21 08/19/21 Furosemide [Lasix] 20 mg PO DAILY #30 tablet 08/19/21 Ondansetron Odt [Zofran] 4 mg TL Q6H PRN #10 tablet 08/19/21 Spironolactone [Aldactone] 25 mg PO DAILY #30 tablet 08/19/21 oxyCODONE [Roxicodone] 5 mg PO Q4-6H PRN #20 tablet 08/19/21 Lactulose 10 gm PO DAILY 10 Days #10 packet 08/26/21 Magnesium Oxide [Mag Ox] 400 mg PO BID 10 Days #20 tablet 08/26/21 Spironolactone [Aldactone] 25 mg PO DAILY #15 tablet 08/26/21 - Allergies Allergies/Adverse Reactions: Allergies Allergy/AdvReac Type Severity Reaction Status Date / Time prednisone Allergy Hallucinati Verified 08/26/21 13:57 ons Penicillins AdvReac Hives Verified 08/26/21 13:57 Sulfa (Sulfonamide AdvReac Hives Verified 08/26/21 13:57 Antibiotics) - Social History Does the pt smoke?: No Smoking Status: Former smoker PD ED PE NORMAL - Vitals Vital signs reviewed: Yes (BP low.) - General General: Alert and oriented X 3, No acute distress, Well developed/nourished - HEENT HEENT: PERRL (scleral icterus. ), Pharynx benign. No: Moist mucous membranes - Neck Neck: Supple, no meningeal sign, No adenopathy - Cardiac Cardiac: No murmur. No: RRR (regular but tachycardic) - Respiratory Respiratory: Clear bilaterally - Abdomen Abdomen: Soft, Non tender, Other (moderately distended but not tense nor much tenderness. No percussion tenderness. Bowel sounds diminished. ) - Female Female : Deferred - Rectal Rectal: Deferred - Back Back: No CVA TTP - Derm Derm: Normal color, Warm and dry - Neuro Neuro: Alert and oriented X 3, No motor deficit, Normal speech Eye Opening: Spontaneous Motor: Obeys Commands Verbal: Oriented GCS Score: 15 Results - Vitals Vitals: Vital Signs - 24 hr 08/26/21 08/26/21 08/26/21 13:54 13:56 14:26 Temperature 36.9 C 36.9 C Heart Rate 106 H 106 H 98 Respiratory 16 16 12 Rate Blood Pressure 88/56 L 88/56 L 105/74 O2 Saturation 95 95 96 08/26/21 08/26/21 08/26/21 14:30 15:00 15:30 Temperature Heart Rate 96 96 96 Respiratory 14 12 13 Rate Blood Pressure 106/72 98/56 L 101/78 O2 Saturation 96 98 95 08/26/21 08/26/21 08/26/21 16:00 16:30 17:00 Temperature Heart Rate 90 98 98 Respiratory 16 12 12 Rate Blood Pressure 101/78 104/72 100/84 H O2 Saturation 94 94 94 08/26/21 08/26/21 17:30 18:00 Temperature Heart Rate 100 106 H Respiratory 15 18 Rate Blood Pressure 106/76 88/61 L O2 Saturation 100 96 Oxygen O2 Source Room air - Labs Labs: Laboratory Tests 08/26/21 08/26/21 08/26/21 14:02 14:02 14:02 WBC 5.0 RBC 3.45 L Hgb 11.3 L Hct 33.8 L MCV 98.0 MCH 32.8 H MCHC 33.4 RDW 21.0 H Plt Count 178 MPV 9.5 Neut # (Auto) 3.4 Lymph # (Auto) 0.7 L Dade # (Auto) 0.7 Eos # (Auto) 0.1 Baso # (Auto) 0.1 Absolute Nucleated RBC 0.00 Nucleated RBC % 0.0 Manual Slide Review Indicated WBC Morphology NORMAL APPEARANCE Platelet Estimate NORMAL (130-450,000) Platelet Morphology NORMAL APPEARANCE RBC Morph Micro Appear 2+ ANISOCYTOSIS PT INR Sodium 133 L Potassium 3.4 L Chloride 94 L Carbon Dioxide 24 Anion Gap 15.0 H BUN 14 Creatinine 1.5 H Estimated GFR (MDRD) 35 L Glucose 128 H Calcium 8.8 Magnesium 1.1 L Total Bilirubin 11.1 H AST 111 H ALT 71 H Alkaline Phosphatase 156 H B-Natriuretic Peptide 70 Total Protein 6.9 Albumin 2.6 L Globulin 4.3 H Albumin/Globulin Ratio 0.6 L Lipase 65 H 08/26/21 15:18 WBC RBC Hgb Hct MCV MCH MCHC RDW Plt Count MPV Neut # (Auto) Lymph # (Auto) Dade # (Auto) Eos # (Auto) Baso # (Auto) Absolute Nucleated RBC Nucleated RBC % Manual Slide Review WBC Morphology Platelet Estimate Platelet Morphology RBC Morph Micro Appear PT 27.0 H INR 2.4 H Sodium Potassium Chloride Carbon Dioxide Anion Gap BUN Creatinine Estimated GFR (MDRD) Glucose Calcium Magnesium Total Bilirubin AST ALT Alkaline Phosphatase B-Natriuretic Peptide Total Protein Albumin Globulin Albumin/Globulin Ratio Lipase PD MEDICAL DECISION MAKING - ED course Complexity details: reviewed results (has higher bili than most recent visit. Prior note of gallstones by CT couple weeks ago. Got repeat U//S to ensure not biliary process now. CBD normal per US. ), re-evaluated patient (BP improved with some IV fluids. Gave some diuretic. Ascites is not tense right now and I don't feel is needing paracentesis. ), considered differential (patient with general weakness and lightheaded with noted low BP at home. She had stopped BP/all meds at direction of PCP. Getting referral to GI, and patient states in progress. No appt yet. ), d/w patient, d/w family, d/w PMD (talked with instructor extension work provider who says the referral is to [facility] GI. ), d/w investment consultant (paged for [facility] few times per [employer]SF[employer], without any response over few hours. Then after 5 pm, was then told that no one is now instructor extension work this evening since office now closed. Left message with office to have GI contact ER. ) Departure - Departure Disposition: Home, Self Care Clinical Impression: Hypomagnesemia Cirrhosis of liver with ascites Qualifiers: Hepatic cirrhosis type: alcoholic cirrhosis Qualified Code(s): K70.31 - Alcoholic cirrhosis of liver with ascites Edema Qualifiers: Edema type: generalized Qualified Code(s): R60.1 - Generalized edema Condition: Stable Record reviewed to determine appropriate education?: Yes Instructions: ED Cirrhosis Liver Follow-Up: Satinder Aguilar DO [Primary Care Provider] - [facility] [Provider Group] Prescriptions: Spironolactone [Aldactone] 25 mg PO DAILY #15 tablet Lactulose 10 gm PO DAILY 10 Days #10 packet Magnesium Oxide [Mag Ox] 400 mg PO BID 10 Days #20 tablet Comments: Unfortunately after waiting quite a while for the molder bench to call back, we have since heard from the office that they did not have anybody on-call after hours this evening. I would have you call the [facility] gastroenterology office at [phone] tomorrow to make an appointment with one of their providers. This was the group to which the referral from your primary care was taking place and this should expedite the follow-up. Meanwhile I would have you stay off of your amlodipine and losartan blood pressure medicines. However I would resume the spironolactone daily. Along with that add a magnesium supplement as your magnesium level was low. Also lactulose daily as directed to help reduce some of the bilirubin in your system. Follow-up with the molder bench hopefully later this week, call tomorrow for an appointment. Contact your primary care if for some reason the specialist are not able to see you in that timeframe. Return to the ER if worsening. I transmitted these prescriptions to [facility] pharmacy. Discharge Date/Time: 08/26/21 18:35
[2021-08-26 14:08] LABS: BASOPHILS # (AUTO) 0.1 10^3/uL (0.0-0.1); BASOPHILS % (AUTO) 1.4 %; EOSINOPHILS # (AUTO) 0.1 10^3/uL (0.0-0.7); EOSINOPHILS % (AUTO) 1.8 %; HCT - HEMATOCRIT 33.8 % (37.0-47.0); HGB - HEMOGLOBIN 11.3 g/dL (12.0-16.0); LYMPHOCYTES # (AUTO) 0.7 10^3/uL (1.5-3.5); LYMPHOCYTES % (AUTO) 14.1 %; MEAN CORPUSCULAR HEMOGLOBIN 32.8 pg (27.0-31.0); MEAN CORPUSCULAR HGB CONC 33.4 g/dL (32.0-36.0); MEAN PLATELET VOLUME 9.5 fL (7.9-10.8); MONOCYTES # (AUTO) 0.7 10^3/uL (0.0-1.0); MONOCYTES % (AUTO) 13.9 %; NEUTROPHILS # (AUTO) 3.4 10^3/uL (1.5-6.6); NEUTROPHILS % (AUTO) 68.6 %; PLT - PLATELET COUNT 178 10^3/uL (130-450); RED BLOOD COUNT 3.45 10^6/uL (4.20-5.40)
[2021-08-26 14:11] LABS: SLIDE REVIEW? Indicated
--- OUTSIDE RECORDS SUMMARY | 2021-08-26 14:21 | EXTERNAL MEDICAL SUMMARY RPT | Continuity of Care Document ---
:1955 Author Organization [facility] Address [address] [place] [address] Phone Care Team Providers Name Role Phone Scheidt Unavailable Unavailable Allergies No information. Encounters No information. Medications No information. Problems date description facility [id number] Unspecified disorder of synovium and te ndon, left [facility] Results No information.
[2021-08-26 14:24] LABS: ALBUMIN 2.6 g/dL (3.2-5.5); ALBUMIN/GLOBULIN RATIO 0.6 (1.0-2.2); BILIRUBIN,TOTAL 11.1 mg/dL (0.2-1.0); CALCIUM 8.8 mg/dL (8.5-10.3); CREATININE 1.5 mg/dL (0.4-1.0); MAGNESIUM 1.1 mg/dL (1.7-2.8); POTASSIUM 3.4 mmol/L (3.5-5.0); TOTAL PROTEIN 6.9 g/dL (6.7-8.2)
[2021-08-26] MEDS ORDERED: SODIUM CHLORIDE 0.9% 1,000 ML IV STA (14:24)
[2021-08-26 14:27] LABS: PLATELET ESTIMATE, MANUAL NORMAL (130-450,000) (NORMAL); PLATELET MORPHOLOGY NORMAL APPEARANCE (NORMAL); WBC MORPHOLOGY (MULTIPLE) NORMAL APPEARANCE (NORMAL)
--- NOTE | 2021-08-26 15:00 | XRAY Report ---
PROCEDURE: Chest 1 View X-Ray INDICATIONS: chest pain TECHNIQUE: One view of the chest was acquired. COMPARISON: 08/27/2018 FINDINGS: Surgical changes and devices: None. Lungs and pleura: There is suggestion of small left pleural effusion with blunting of left costophren ic angle. No definite focal infiltrate. No gross pneumothorax. Right lung is clear. Mediastinum: Mediastinal contours appear normal. Heart size is normal. Bones and chest wall: No suspicious bony lesions. Overlying soft tissues appear unremarkable. IMPRESSION: Suggestion of small left pleural effusion. No definite focal infiltrate. No pneumothorax. Reviewed by: Sina Jackson MD on 08/26/2021 2:58 PM PDT Approved by: Sina Jackson MD on 08/26/2021 2:58 PM PDT Station ID: [id number]
[2021-08-26 16:02] LABS: INR 2.4 (0.8-1.2)
--- NOTE | 2021-08-26 16:38 | Ultrasound Report ---
PROCEDURE: Abdomen Limited INDICATIONS: elevated LFTs; CT March= ? gallstones/wall thick TECHNIQUE: Real-time scanning was performed of the abdominal and retroperitoneal organs, with image documentatio n. COMPARISON: CT angiogram of the abdomen dated 07/09/2021 and abdominal ultrasound dated 01/06/2021 FINDINGS: Liver: The liver demonstrates diffusely increased and coarsened echotexture without focal abnormalit ies which is consistent with chronic hepatocellular disease/hepatic steatosis. There is mild nodulari ty of the liver contour Gallbladder: Gallbladder contains small gallstones and sludge. Borderline thickening of the gallbladd er wall at 3 mm. No pericholecystic fluid. Negative for sonographic Stevenson's sign. Biliary ducts: Intrahepatic bile ducts are non-dilated. Extrahepatic bile duct caliber measures 6 m m. Normal is 6-7 mm or less in diameter, or 10 mm or less post-cholecystectomy. Pancreas: Pancreas not well visualized on this exam Spleen: Spleen is normal in size and homogeneous in echotexture. Kidneys: Right kidney is in size and echotexture. Right kidney measures 10.0 cm long; no hydronephro sis or nephrolithiasis. No solid masses. Miscellaneous: Small-moderate amount of scattered ascites. IMPRESSION: 1. Coarsened and diffusely increased hepatic echotexture compatible with hepatic steatosis versus seq uela of chronic hepatocellular disease. Mild liver contour nodularity suggests possible cirrhosis. No focal intrahepatic mass lesions seen. 2. Small-moderate amount of ascites, increased compared to the prior exams. 3. Gallbladder contains small gallstones and sludge with borderline thickening of the gallbladder wal l. Otherwise, no sonographic evidence to suggest acute cholecystitis. Clinical correlation recommende d. If there is clinical concern for gallbladder dysfunction, further evaluation with nuclear medicine HIDA scan can be considered. Reviewed by: Rosales Sandhu MD on 08/26/2021 4:36 PM PDT Approved by: Rosales Sandhu MD on 08/26/2021 4:36 PM PDT Station ID: [id number]
[2021-08-26] MEDS ORDERED: POTASSIUM CHLORIDE 20 MEQ TABLET PO ONE (17:31)
[2021-08-26] MEDS ORDERED: LACTULOSE 10 GM /15 ML UDC PO STA (17:31)
[2021-08-26] MEDS ORDERED: MAGNESIUM SULFATE 2 GRAM 2 GM/50 ML BAG IV ONE (17:31)
[2021-08-26] MEDS ORDERED: SPIRONOLACTONE 25 MG TABLET PO STA (17:32)
[2021-08-26 18:22] VITALS: BP 88/61
[2021-08-27 06:10] LABS: HBsAG SCREEN Negative (Negative); HCV AB <0.1 s/co ratio (0.0-0.9); HEPATITIS B CORE IGM AB Negative (Negative)
== END 2021-08-26 18:35 | disposition home or self-care (01) ==
LOC: ED 13:32
DX: K70.31 Alcoholic cirrhosis of liver with ascites (principal); R60.1 Generalized edema; E83.42 Hypomagnesemia; Z87.891 Personal history of nicotine dependence
CPT/HCPCS: 36415; 71045; 76705; 80053; 83690; 83735; 83880; 85025; 85610; 86705; 86709; 86803; 87522; 96365; 99283; 99284; A9270

== ENCOUNTER 2021-09-02 15:51 | Emergency (ER) | payer MEDICARE, OTHER ==
--- OUTSIDE RECORDS SUMMARY | 2021-09-02 16:22 | EXTERNAL MEDICAL SUMMARY RPT | Continuity of Care Document ---
:1955 Author Organization [facility] Address [address] [place] [address] Phone Care Team Providers Name Role Phone Scheidt Unavailable Unavailable Allergies No information. Encounters No information. Medications No information. Problems date description facility [id number] Unspecified disorder of synovium and te ndon, left [facility] Results No information.
[2021-09-02 16:31] LABS: BASOPHILS # (AUTO) 0.1 10^3/uL (0.0-0.1); BASOPHILS % (AUTO) 0.9 %; EOSINOPHILS # (AUTO) 0.2 10^3/uL (0.0-0.7); EOSINOPHILS % (AUTO) 1.8 %; HCT - HEMATOCRIT 32.5 % (37.0-47.0); HGB - HEMOGLOBIN 10.6 g/dL (12.0-16.0); LYMPHOCYTES # (AUTO) 1.5 10^3/uL (1.5-3.5); LYMPHOCYTES % (AUTO) 16.6 %; MEAN CORPUSCULAR HGB CONC 32.6 g/dL (32.0-36.0); MEAN CORPUSCULAR VOLUME 98.2 fL (81.0-99.0); MEAN PLATELET VOLUME 10.1 fL (7.9-10.8); MONOCYTES # (AUTO) 1.2 10^3/uL (0.0-1.0); MONOCYTES % (AUTO) 13.5 %; NEUTROPHILS % (AUTO) 66.9 %; PLT - PLATELET COUNT 241 10^3/uL (130-450); RED BLOOD COUNT 3.31 10^6/uL (4.20-5.40); RED CELL DISTRIBUTION WIDTH 19.3 % (12.0-15.0)
[2021-09-02] MEDS ORDERED: HYDROmorphone 1 MG/ML CARPUJECT IVP STA (16:39)
--- NOTE | 2021-09-02 16:40 | ED Physician Documentation ---
PD HPI ABD PAIN - Stated complaint Stated Complaint: STOMACH CRAMPING - Chief complaint Chief Complaint: Abd Pain - History obtained from History obtained from: Patient, Family - Additional information Additional information: 66-year-old woman seen on August 19 for liver decompensation from likely alcohol cirrhosis. She was started on diuretics and pain medication. Also noted to have a left rib fracture. In the last week really has not been eating or drinking and continues to have severe symptoms of shortness of breath, abdominal distention. Her pedal edema is much better. She has not been moving her bowels but she is not eating anything. Per the significant other she is confused. Review of Systems Ten Systems: 10 systems reviewed and negative Constitutional: reports: Reviewed and negative Eyes: reports: Reviewed and negative Cardiac: reports: Reviewed and negative Respiratory: reports: Reviewed and negative PD PAST MEDICAL HISTORY - Past Medical History Cardiovascular: Hypertension, Pulmonary embolism Respiratory: None Neuro: Peripheral neuropathy Endocrine/Autoimmune: Other GI: GERD : None HEENT: Other Psych: None Musculoskeletal: Chronic back pain Derm: None - Past Surgical History Past Surgical History: Yes Ortho: Spine surgery, Other /CAMPUS REP: Other HEENT: Cataracts - Present Medications Home Medications: Ambulatory Orders Medication Instructions Recorded Confirmed Aspirin [Aspirin EC] 81 mg PO DAILY 03/14/21 09/02/21 Famotidine [Pepcid] 20 mg PO DAILY 03/14/21 09/02/21 Furosemide [Lasix] 20 mg PO DAILY #30 tablet 08/19/21 09/02/21 Ondansetron Odt [Zofran] 4 mg TL Q6H PRN #10 tablet 08/19/21 09/02/21 Lactulose 10 gm PO DAILY 10 Days #10 packet 08/26/21 09/02/21 Magnesium Oxide [Mag Ox] 400 mg PO BID 10 Days #20 tablet 08/26/21 09/02/21 Spironolactone [Aldactone] 25 mg PO DAILY #15 tablet 08/26/21 09/02/21 - Allergies Allergies/Adverse Reactions: Allergies Allergy/AdvReac Type Severity Reaction Status Date / Time prednisone Allergy Hallucinati Verified 09/02/21 16:19 ons Penicillins AdvReac Hives Verified 09/02/21 16:19 Sulfa (Sulfonamide AdvReac Hives Verified 09/02/21 16:19 Antibiotics) - Social History Does the pt smoke?: No Smoking Status: Former smoker Does the pt have substance abuse?: No PD ED PE NORMAL - Vitals Vital signs reviewed: Yes - General General: Alert and oriented X 3, Other (She is slightly somnolent but easily arousable, jaundiced and appears uncomfortable with mild resting tachycardia.) - HEENT HEENT: Other (Icteric) - Neck Neck: Supple, no meningeal sign, No bony TTP - Cardiac Cardiac: RRR, No murmur - Respiratory Respiratory: No respiratory distress, Clear bilaterally - Abdomen Abdomen: Normal bowel sounds, Soft, Other (She definitely has ascites but not particularly tense. Mild diffuse tenderness.) - Back Back: No CVA TTP, No spinal TTP - Derm Derm: Normal color, Warm and dry - Extremities Extremities: Other (Trace pitting pedal edema but she has wrinkled skin consistent with the the edema being recently worse.) - Neuro Neuro: Alert and oriented X 3, No motor deficit, No sensory deficit, Normal speech Results - Vitals Vitals: Vital Signs - 24 hr 09/03/21 09/03/21 09/03/21 08:05 11:01 11:45 Temperature 36.5 C Heart Rate 111 H 109 H Respiratory 14 17 16 Rate Blood Pressure 129/67 118/74 O2 Saturation 96 99 91 L 09/03/21 09/03/21 09/03/21 13:32 13:35 16:14 Temperature Heart Rate 104 H 103 H 104 H Respiratory 11 L 17 17 Rate Blood Pressure 116/82 H 116/82 H O2 Saturation 99 09/03/21 09/03/21 09/03/21 18:11 20:00 22:00 Temperature Heart Rate 101 H 102 H 100 Respiratory 18 10 L 12 Rate Blood Pressure 114/68 125/84 H 121/70 O2 Saturation 92 95 95 09/04/21 09/04/21 00:00 02:00 Temperature Heart Rate 106 H 106 H Respiratory 12 11 L Rate Blood Pressure 116/61 114/70 O2 Saturation 95 95 Oxygen O2 Source Nasal cannula - Labs Labs: Microbiology 09/02/21 19:00 Body Fluid Culture - Preliminary Ascities Fluid Laboratory Tests 09/02/21 09/02/21 09/02/21 16:24 16:24 16:24 WBC 9.0 RBC 3.31 L Hgb 10.6 L Hct 32.5 L MCV 98.2 MCH 32.0 H MCHC 32.6 RDW 19.3 H Plt Count 241 MPV 10.1 Neut # (Auto) 6.0 Lymph # (Auto) 1.5 Galax # (Auto) 1.2 H Eos # (Auto) 0.2 Baso # (Auto) 0.1 Absolute Nucleated RBC 0.00 Nucleated RBC % 0.0 PT INR APTT Sodium 130 L Potassium 4.1 Chloride 95 L Carbon Dioxide 22 Anion Gap 13.0 BUN 19 Creatinine 1.2 H Estimated GFR (MDRD) 45 L Glucose 102 H Calcium 9.6 Total Bilirubin 12.9 H AST 107 H ALT 50 Alkaline Phosphatase 141 H Ammonia Total Protein 6.9 Albumin 2.5 L Globulin 4.4 H Albumin/Globulin Ratio 0.6 L Lipase 69 H Urine Color Urine Clarity Urine pH Ur Specific Erie Urine Protein Urine Glucose (UA) Urine Ketones Urine Occult Blood Urine Nitrite Urine Bilirubin Urine Urobilinogen Ur Leukocyte Esterase Urine RBC Urine WBC Ur Squamous Epith Cells Urine Bacteria Ur Microscopic Review Urine Culture Comments Fluid Source Fluid Color Fluid Clarity Fluid WBC Fluid RBC Fluid Neutrophils % Fluid Lymphocytes % Fluid Macrophages % Fld Mesothelial Cell % Ethyl Alcohol < 5.0 SARS-CoV-2 (PCR) 09/02/21 09/02/21 09/02/21 16:32 16:51 17:40 WBC RBC Hgb Hct MCV MCH MCHC RDW Plt Count MPV Neut # (Auto) Lymph # (Auto) [place]ax # (Auto) Eos # (Auto) Baso # (Auto) Absolute Nucleated RBC Nucleated RBC % PT 27.0 H INR 2.4 H APTT 47.2 H Sodium Potassium Chloride Carbon Dioxide Anion Gap BUN Creatinine Estimated GFR (MDRD) Glucose Calcium Total Bilirubin AST ALT Alkaline Phosphatase Ammonia 33.5 Total Protein Albumin Globulin Albumin/Globulin Ratio Lipase Urine Color Urine Clarity Urine pH Ur Specific [place] Urine Protein Urine Glucose (UA) Urine Ketones Urine Occult Blood Urine Nitrite Urine Bilirubin Urine Urobilinogen Ur Leukocyte Esterase Urine RBC Urine WBC Ur Squamous Epith Cells Urine Bacteria Ur Microscopic Review Urine Culture Comments Fluid Source Fluid Color Fluid Clarity Fluid WBC Fluid RBC Fluid Neutrophils % Fluid Lymphocytes % Fluid Macrophages % Fld Mesothelial Cell % Ethyl Alcohol SARS-CoV-2 (PCR) NOT DETECTED 09/02/21 09/03/21 09/03/21 19:00 07:10 07:10 WBC 4.6 L RBC 3.05 L Hgb 9.8 L Hct 29.5 L MCV 96.7 MCH 32.1 H MCHC 33.2 RDW 19.1 H Plt Count 193 MPV 9.9 Neut # (Auto) 3.7 Lymph # (Auto) 0.5 L [place] # (Auto) 0.3 Eos # (Auto) 0.0 Baso # (Auto) 0.0 Absolute Nucleated RBC 0.00 Nucleated RBC % 0.0 PT INR APTT Sodium 125 L Potassium 4.7 Chloride 91 L Carbon Dioxide 23 Anion Gap 11.0 BUN 23 H Creatinine 1.1 H Estimated GFR (MDRD) 50 L Glucose 135 H Calcium 8.9 Total Bilirubin 12.4 H AST 94 H ALT 48 Alkaline Phosphatase 129 H Ammonia Total Protein 6.5 L Albumin 2.3 L Globulin 4.2 Albumin/Globulin Ratio 0.5 L Lipase 101 H Urine Color Urine Clarity Urine pH Ur Specific Erie Urine Protein Urine Glucose (UA) Urine Ketones Urine Occult Blood Urine Nitrite Urine Bilirubin Urine Urobilinogen Ur Leukocyte Esterase Urine RBC Urine WBC Ur Squamous Epith Cells Urine Bacteria Ur Microscopic Review Urine Culture Comments Fluid Source PERITONEAL Fluid Color YELLOW Fluid Clarity CLEAR Fluid WBC 251 Fluid RBC < 3000 Fluid Neutrophils % 40 Fluid Lymphocytes % 35 Fluid Macrophages % 23 Fld Mesothelial Cell % 2 Ethyl Alcohol SARS-CoV-2 (PCR) 09/03/21 09/03/21 07:10 08:10 WBC RBC Hgb Hct MCV MCH MCHC RDW Plt Count MPV Neut # (Auto) Lymph # (Auto) Galax # (Auto) Eos # (Auto) Baso # (Auto) Absolute Nucleated RBC Nucleated RBC % PT INR APTT Sodium Potassium Chloride Carbon Dioxide Anion Gap BUN Creatinine Estimated GFR (MDRD) Glucose Calcium Total Bilirubin AST ALT Alkaline Phosphatase Ammonia 16.0 Total Protein Albumin Globulin Albumin/Globulin Ratio Lipase Urine Color ORANGE Urine Clarity SL. CLOUDY Urine pH 5.5 Ur Specific Erie 1.025 Urine Protein NEGATIVE Urine Glucose (UA) NEGATIVE Urine Ketones TRACE Urine Occult Blood TRACE-INTA Urine Nitrite POSITIVE H Urine Bilirubin MODERATE H Urine Urobilinogen 2 H Ur Leukocyte Esterase TRACE H Urine RBC 0-5 Urine WBC 6-10 H Ur Squamous Epith Cells FEW Squamous Urine Bacteria Many H Ur Microscopic Review INDICATED Urine Culture Comments INDICATED Fluid Source Fluid Color Fluid Clarity Fluid WBC Fluid RBC Fluid Neutrophils % Fluid Lymphocytes % Fluid Macrophages % Fld Mesothelial Cell % Ethyl Alcohol SARS-CoV-2 (PCR) Procedures - Paracentesis Preparation: Consent obtained Location: [facility] Technique: Other (18g after chloraprep and local lido with epi) Fluid: Clear, Volume - enter cc (20ml) Aftercare: No complications PD MEDICAL DECISION MAKING - ED course ED course: This is an unfortunate 66-year-old woman with known cirrhosis who continues to decompensate despite not drinking since August 21. Now with mild encephalopathy and worsening. Her meld score has gone up to 31 points portending a 52.6% 3- month mortality. Her discriminant factor has gone up and steroids will be started. Now her discriminant factor is 81.7 points. I spoke with Dr. Alice Mello, rotary veneer machine operator at the [facility] and we went over the case. She agreed with starting steroids, they do not have any beds but she states that since the patient is not a transplant candidate since she has been sober only for a couple of weeks, medical management only at this point. She did recommend paracentesis to rule out SBP. Subsequently after shift change I spoke with Dr. Ocasio, our hospitalist here who felt that the patient should go to somewhere with GI and hepatology coverage unless the patient was willing to entertain hospice. I had this discussion with the patient and her significant other and they are still at the point where they would like to entertain aggressive measures for treatment. Their preference was that we actually talked to [facility] as opposed to the [facility] again. [facility] was completely full and would not even entertain putting her on a wait list. This was discussed with patient and family again and the preference still was to avoid the [facility] and both [facility] were called. [facility] has put her on a wait list. [facility] cannot accommodate her. She does not have SBP. She is boarding for [facility] at [facility]. Departure - Departure Disposition: 02 Transfer Acute Care Hosp Clinical Impression: Failure to thrive in adult, Acute urinary retention, UTI (urinary tract infection) Cirrhosis of liver with ascites Qualifiers: Hepatic cirrhosis type: alcoholic cirrhosis Qualified Code(s): K70.31 - Alcoholic cirrhosis of liver with ascites Condition: Serious Discharge Date/Time: 09/04/21 02:56
[2021-09-02 16:51] LABS: ALBUMIN 2.5 g/dL (3.2-5.5); ALBUMIN/GLOBULIN RATIO 0.6 (1.0-2.2); BILIRUBIN,TOTAL 12.9 mg/dL (0.2-1.0); CALCIUM 9.6 mg/dL (8.5-10.3); CREATININE 1.2 mg/dL (0.4-1.0); POTASSIUM 4.1 mmol/L (3.5-5.0); TOTAL PROTEIN 6.9 g/dL (6.7-8.2)
[2021-09-02 16:52] LABS: INR 2.4 (0.8-1.2)
[2021-09-02 16:59] LABS: PARTIAL THROMBOPLASTIN TIME 47.2 secs (24.9-33.3)
[2021-09-02] MEDS ORDERED: PrednisoLONE 15 MG/5 ML SYRUP SYR PO STA (17:17)
[2021-09-02] MEDS ORDERED: LIDOCAINE 1%-EPI 1:100000 20 ML MDV SUBQ STA (18:43)
[2021-09-02 19:22] LABS: BF CLARITY CLEAR; BF SOURCE PERITONEAL; CC,BF WBC 251 /mm^3
[2021-09-02 19:23] LABS: BF COLOR YELLOW
[2021-09-02 19:37] LABS: CC,BF RBC < 3000 /mm^3
[2021-09-02 19:58] LABS: NEUTROPHILS %, BF 40 %
[2021-09-02 19:59] LABS: LYMPHOCYTES %,BODY FLUID 35 %; MACROPHAGES %,BODY FLUID 23 %; MESOTHELIAL %, BF 2 %
[2021-09-02] MEDS ORDERED: LACTATED RINGERS 1,000 ML IV STA (20:19)
[2021-09-02] MEDS ORDERED: DOXEPIN 10 MG CAPSULE PO PRN (20:56)
[2021-09-02] MEDS ORDERED: DOXEPIN 10 MG CAPSULE PO STA (20:56)
[2021-09-03 07:19] LABS: BASOPHILS % (AUTO) 0.2 %; HCT - HEMATOCRIT 29.5 % (37.0-47.0); HGB - HEMOGLOBIN 9.8 g/dL (12.0-16.0); LYMPHOCYTES # (AUTO) 0.5 10^3/uL (1.5-3.5); LYMPHOCYTES % (AUTO) 11.4 %; MEAN CORPUSCULAR HEMOGLOBIN 32.1 pg (27.0-31.0); MEAN CORPUSCULAR HGB CONC 33.2 g/dL (32.0-36.0); MEAN CORPUSCULAR VOLUME 96.7 fL (81.0-99.0); MEAN PLATELET VOLUME 9.9 fL (7.9-10.8); MONOCYTES # (AUTO) 0.3 10^3/uL (0.0-1.0); MONOCYTES % (AUTO) 6.6 %; NEUTROPHILS # (AUTO) 3.7 10^3/uL (1.5-6.6); NEUTROPHILS % (AUTO) 80.9 %; PLT - PLATELET COUNT 193 10^3/uL (130-450); RED BLOOD COUNT 3.05 10^6/uL (4.20-5.40); RED CELL DISTRIBUTION WIDTH 19.1 % (12.0-15.0); WHITE BLOOD COUNT 4.6 x10^3/uL (4.8-10.8)
[2021-09-03 07:40] LABS: ALBUMIN 2.3 g/dL (3.2-5.5); ALBUMIN/GLOBULIN RATIO 0.5 (1.0-2.2); BILIRUBIN,TOTAL 12.4 mg/dL (0.2-1.0); CALCIUM 8.9 mg/dL (8.5-10.3); CREATININE 1.1 mg/dL (0.4-1.0); POTASSIUM 4.7 mmol/L (3.5-5.0); TOTAL PROTEIN 6.5 g/dL (6.7-8.2)
[2021-09-03] MEDS ORDERED: PrednisoLONE 15 MG/5 ML SYRUP SYR PO SCH (08:00)
[2021-09-03 08:14] LABS: GLUCOSE, URINE (UA) NEGATIVE (NEGATIVE); KETONES,URINE (UA) TRACE mg/dL (NEGATIVE); LEUKOCYTE ESTERASE, URINE TRACE (NEGATIVE); NITRITE,URINE POSITIVE (NEGATIVE); OCCULT BLOOD,URINE TRACE-INTA (NEGATIVE); PH,URINE 5.5 PH (5.0-7.5); PROTEIN,URINE NEGATIVE (NEGATIVE); UROBILINOGEN,URINE 2 E.U./dL (NORMAL)
[2021-09-03 08:18] LABS: BILIRUBIN,URINE MODERATE (NEGATIVE); CLARITY,URINE SL. CLOUDY (CLEAR); ICTOTEST,URINE POSITIVE
[2021-09-03 08:21] LABS: BACTERIA,URINE Many /HPF (None Seen); RBC,URINE 0-5 /HPF (0-5); SQUAMOUS EPITHELIAL CELL,UR FEW Squamous (<= Few)
[2021-09-03] MEDS ORDERED: cefTRIAXone 1 GM in SODIUM CHLORIDE 0.9% MINIBAG 100 ML IV SCH (09:00)
[2021-09-03] MEDS ORDERED: PANTOPRAZOLE 40 MG TABLET PO SCH (09:00)
[2021-09-03] MEDS ORDERED: SODIUM CHLORIDE 0.9% 1,000 ML IV STA ×2 (09:58→20:48)
[2021-09-03] MEDS ORDERED: HYDROmorphone 1 MG/ML CARPUJECT IVP STA (11:18)
--- NOTE | 2021-09-03 18:01 | ED Physician Documentation ---
ED Addendum - Addendum Addendum: The patient did have some recurring abdominal pain through the day today. She was given a dose of hydromorphone for that with improvement. We did recheck morning labs without any really notable changes of significance. She had previously this morning been ordered ceftriaxone. I therefore resumed IV fluid hydration with normal saline rather than Ringer's lactate due to the compatibility issue. [facility] called us several times through the day to update that they were expecting discharges later in the day. As of the time of this report, they had not had a bed available for confirming transfer but they are still working on it. 09/03/21 17:59
--- NOTE | 2021-09-03 23:59 | ED Physician Documentation ---
ED Addendum - Addendum Addendum: 09/03/21 23:58 D/W Dr. Kyra Fernandez at [facility]. Will accept patient. Patient made aware of acceptance at [facility] and is in agreement with plan for transfer. I was notified by RN that patient has not urinated all day. Patient reports feeling the need to urinate but has not been able to do so. Bladder scan showing at least 500 mL of urine. Pearce catheter order placed. 09/04/21 02:30 COBRA form signed, patient has agreed to transport. [facility] here to transport patient. Departure - Departure Disposition: 02 Transfer Acute Care Hosp Clinical Impression: Failure to thrive in adult, Acute urinary retention Cirrhosis of liver with ascites Qualifiers: Hepatic cirrhosis type: alcoholic cirrhosis Qualified Code(s): K70.31 - Alcoholic cirrhosis of liver with ascites UTI (urinary tract infection) Qualifiers: Urinary tract infection type: acute cystitis Hematuria presence: without hematuria Qualified Code(s): N30.00 - Acute cystitis without hematuria Condition: Serious
[2021-09-04 02:00] VITALS: BP 114/70
== END 2021-09-04 02:56 | disposition short-term general hospital (02) ==
LOC: ED 15:51
DX: K70.31 Alcoholic cirrhosis of liver with ascites (principal); N39.0 Urinary tract infection, site not specified; R33.9 Retention of urine, unspecified; R62.7 Adult failure to thrive; I10 Essential (primary) hypertension; Z87.891 Personal history of nicotine dependence
CPT/HCPCS: 36415; 49082; 51702; 51798; 80053; 81001; 82140; 83690; 85025; 85610; 85730; 87070; 87086; 87181; 87205; 87635; 89051; 96361; 96374; 96375; 96376; 99284; 99285; A9270; G0480; J1170; J7120; J7510; 80048; 80320; 81003; 85014; 85018

== ENCOUNTER 2021-09-15 14:32 | Outpatient (CLI) | payer MEDICARE, OTHER | END 2021-09-15 14:33 | disposition critical access hospital (66) | LOC: EMS 14:32 | DX: R41.0 Disorientation, unspecified (principal); R53.83 Other fatigue; R53.1 Weakness; R32 Unspecified urinary incontinence | CPT/HCPCS: A0425; A0429 ==

== ENCOUNTER 2021-09-15 14:47 | Inpatient (IN) | payer MEDICARE, OTHER ==
--- OUTSIDE RECORDS SUMMARY | 2021-09-15 14:54 | EXTERNAL MEDICAL SUMMARY RPT | Continuity of Care Document ---
:1955 Author Organization [place] Address [address] [place] [address] Phone Care Team Providers Name Role Phone Scheidt Unavailable Unavailable Allergies No information. Encounters No information. Medications No information. Problems date description facility [id number] Unspecified disorder of synovium and te ndon, left [facility] Results No information.
[2021-09-15] MEDS ORDERED: SODIUM CHLORIDE 0.9% 1,000 ML IV STA ×2 (15:06→18:17)
--- NOTE | 2021-09-15 15:10 | ED Physician Documentation ---
PD HPI ALTERED MENTAL STATUS - Stated complaint Stated Complaint: CONFUSION/WEAKNESS - History obtained from History obtained from: Patient, EMS - History of Present Illness Timing - onset: Last night Timing - duration: Days Timing - details: Gradual onset, Still present Quality / character: Less responsive, Confused Associated symptoms: No: Fever, Headache, Stiff neck, Dyspnea, Cough, NVD, Urinary sx, General weakness, Focal weakness, Seizure activity, Syncope Contributing factors: Other (known cirrhosis) Basline status: Ambulatory, Independent Similar symptoms before: Diagnosis Recently seen: Admitted - Additional information Additional information: 66-year-old female with a recent diagnosis of cirrhosis was hospitalized in March and she had been doing well until several days ago when she had more swelling in her feet developed some redness to the left ankle and this morning she was confused and had difficulty standing up. Her states that last night she started some Lasix and the swelling in her legs is down this morning. Review of Systems Constitutional: denies: Fever Eyes: denies: Decreased vision Ears: denies: Ear pain Nose: denies: Congestion Throat: denies: Sore throat Cardiac: denies: Chest pain / pressure Respiratory: denies: Dyspnea, Cough GI: denies: Abdominal Pain, Vomiting, Diarrhea : reports: Incontinent. denies: Dysuria Skin: reports: Rash (to left LE) Musculoskeletal: reports: Extremity pain, Extremity swelling Neurologic: reports: Generalized weakness. 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 HEENT: Cataracts - Present Medications Home Medications: Ambulatory Orders Medication Instructions Recorded Confirmed Furosemide [Lasix] 20 mg PO DAILY #30 tablet 08/19/21 09/16/21 Magnesium Oxide [Mag Ox] 400 mg PO BID 10 Days #20 tablet 08/26/21 09/16/21 Lactulose 15 ml PO BID 09/16/21 09/16/21 Multivitamin 1 tab PO DAILY 09/16/21 09/16/21 Ondansetron Odt [Zofran] 4 mg TL Q8H PRN 09/16/21 09/16/21 Pantoprazole [Protonix] 40 mg PO QDAC 09/16/21 09/16/21 Spironolactone [Aldactone] 100 mg PO DAILY 09/16/21 09/16/21 Thiamine [Vitamin B-1] 100 mg PO DAILY 09/16/21 09/16/21 oxyCODONE [Roxicodone] 5 mg PO Q4H PRN 09/16/21 09/16/21 predniSONE [Deltasone] 10 - 30 mg PO DAILY 09/16/21 09/16/21 predniSONE [Deltasone] 40 mg PO DAILY 09/16/21 09/16/21 - Allergies Allergies/Adverse Reactions: Allergies Allergy/AdvReac Type Severity Reaction Status Date / Time prednisone Allergy Hallucinati Verified 09/15/21 15:11 ons Penicillins AdvReac Hives Verified 09/15/21 15:11 Sulfa (Sulfonamide AdvReac Hives Verified 09/15/21 15:11 Antibiotics) - Social History Does the pt smoke?: No Smoking Status: Former smoker Does the pt have substance abuse?: No PD ED PE NORMAL - Vitals Vital signs reviewed: Yes (tachy ) - General General: No acute distress, Well developed/nourished - HEENT HEENT: Atraumatic, PERRL, EOMI - Neck Neck: Supple, no meningeal sign, No bony TTP - Cardiac Cardiac: No murmur, Other (tachy) - Respiratory Respiratory: No respiratory distress, Clear bilaterally - Abdomen Abdomen: Soft, Non tender - Back Back: No CVA TTP, No spinal TTP - Derm Derm: Normal color, Warm and dry, No rash - Extremities Extremities: No deformity, Other (erythema and induration to the left foot. ) - Neuro Neuro: Alert and oriented X 3, critical care physician assistant 2-12 intact, No motor deficit, No sensory deficit, Normal speech Eye Opening: Spontaneous Motor: Obeys Commands Verbal: Oriented GCS Score: 15 - Psych Psych: Normal mood, Normal affect Results - Vitals Vitals: Vital Signs - 24 hr 09/15/21 09/15/21 16:05 18:11 Heart Rate 113 H 120 H Respiratory 16 20 Rate Blood Pressure 165/91 H 124/71 O2 Saturation 97 94 Oxygen O2 Source Room air - Labs Labs: Microbiology 09/15/21 16:25 Urine Culture - Preliminary Urine,Catheterized CULTURE IN PROGRESS. RESULTS TO FOLLOW. Laboratory Tests 09/15/21 09/15/21 09/15/21 15:34 15:34 15:34 WBC 17.9 H RBC 3.78 L Hgb 12.0 Hct 36.7 L MCV 97.1 MCH 31.7 H MCHC 32.7 RDW 18.1 H Plt Count 176 MPV 10.8 Neut # (Auto) 15.7 H Lymph # (Auto) 0.9 L [place] # (Auto) 1.2 H Eos # (Auto) 0.0 Baso # (Auto) 0.0 Absolute Nucleated RBC 0.00 Nucleated RBC % 0.0 INR (Fingerstick) Sodium 130 L Potassium 3.9 Chloride 94 L Carbon Dioxide 24 Anion Gap 12.0 BUN 22 H Creatinine 0.9 Estimated GFR (MDRD) 62 L Glucose 149 H Lactic Acid 3.4 H* Calcium 9.2 Total Bilirubin 11.1 H AST 105 H ALT 96 H Alkaline Phosphatase 156 H Total Protein 7.3 Albumin 2.9 L Globulin 4.3 H Albumin/Globulin Ratio 0.7 L Lipase 150 H Urine Color Urine Clarity Urine pH Ur Specific [place] Urine Protein Urine Glucose (UA) Urine Ketones Urine Occult Blood Urine Nitrite Urine Bilirubin Urine Urobilinogen Ur Leukocyte Esterase Urine RBC Urine WBC Urine WBC Clumps Ur Epithelial Cells Ur Squamous Epith Cells Urine Bacteria Ur Microscopic Review Urine Culture Comments Nasal Adenovirus (PCR) Nasal B. parapertussis DNA (PCR) Nasal Coronavir 229E PCR Nasal Coronavir HKU1 PCR Nasal Coronavir NL63 PCR Nasal Coronavir OC43 PCR Nasal Enterovir/Rhinovir PCR Nasal Influenza B PCR Nasal Influenza A PCR Nasal Parainfluen 1 PCR Nasal Parainfluen 2 PCR Nasal Parainfluen 3 PCR Nasal Parainfluen 4 PCR Nasal RSV (PCR) Nasal B.pertussis DNA PCR Nasal C.pneumoniae (PCR) Leno Human Metapneumo PCR Nasal M.pneumoniae (PCR) Nasal SARS-CoV-2 (PCR) 09/15/21 09/15/21 09/15/21 16:20 16:25 18:15 WBC RBC Hgb Hct MCV MCH MCHC RDW Plt Count MPV Neut # (Auto) Lymph # (Auto) [place] # (Auto) Eos # (Auto) Baso # (Auto) Absolute Nucleated RBC Nucleated RBC % INR (Fingerstick) 1.6 H Sodium Potassium Chloride Carbon Dioxide Anion Gap BUN Creatinine Estimated GFR (MDRD) Glucose Lactic Acid Calcium Total Bilirubin AST ALT Alkaline Phosphatase Total Protein Albumin Globulin Albumin/Globulin Ratio Lipase Urine Color DARK YELLOW Urine Clarity CLEAR Urine pH 6.5 Ur Specific [place] 1.015 Urine Protein NEGATIVE Urine Glucose (UA) NEGATIVE Urine Ketones NEGATIVE Urine Occult Blood NEGATIVE Urine Nitrite NEGATIVE Urine Bilirubin SMALL H Urine Urobilinogen 4 H Ur Leukocyte Esterase TRACE H Urine RBC 0-5 Urine WBC 6-10 H Urine WBC Clumps PRESENT Ur Epithelial Cells FEW Transitional Ur Squamous Epith Cells NONE SEEN Urine Bacteria Few Ur Microscopic Review INDICATED Urine Culture Comments INDICATED Nasal Adenovirus (PCR) NOT DETECTED Nasal B. parapertussis DNA (PCR) NOT DETECTED Nasal Coronavir 229E PCR NOT DETECTED Nasal Coronavir HKU1 PCR NOT DETECTED Nasal Coronavir NL63 PCR NOT DETECTED Nasal Coronavir OC43 PCR NOT DETECTED Nasal Enterovir/Rhinovir PCR NOT DETECTED Nasal Influenza B PCR NOT DETECTED Nasal Influenza A PCR NOT DETECTED Nasal Parainfluen 1 PCR NOT DETECTED Nasal Parainfluen 2 PCR NOT DETECTED Nasal Parainfluen 3 PCR NOT DETECTED Nasal Parainfluen 4 PCR NOT DETECTED Nasal RSV (PCR) NOT DETECTED Nasal B.pertussis DNA PCR NOT DETECTED Nasal C.pneumoniae (PCR) NOT DETECTED Leno Human Metapneumo PCR NOT DETECTED Nasal M.pneumoniae (PCR) NOT DETECTED Nasal SARS-CoV-2 (PCR) NOT DETECTED - Rads (name of study) chest Radiology: Prelim report reviewed (Impression: Enlarging moderate left pleural effusion.), EMP read indepedently (dry chest otherwise), See rad report Procedures - IVC sono (time) 1455 Bedside IVC sono: IVC measures (cm) (<1cm), Dehydration (est 1-2 liter deficit) PD MEDICAL DECISION MAKING - ED course Complexity details: reviewed old records, reviewed results, re-evaluated patient, considered differential, d/w patient, d/w family ED course: 66-year-old female with history of cirrhosis presents to the emergency department today with confusion and weakness that is relatively new in onset with what appears to be cellulitis to the left ankle. She has an elevated white blood cell count elevated lactate. She does have a urine which also shows 6-10 white cells per high-powered field a similar urine previously grew an E. coli resistant to multiple antibiotics. At the time that specimen was taken the patient had been given a dose of Rocephin here in the emergency department and that urine was not sensitive. Today she returns with a similar appearing urine and only complains of incontinence. Departure - Departure Disposition: [facility] DC/Xfer Clinical Impression: Dehydration Cellulitis Qualifiers: Site of cellulitis: extremity Site of cellulitis of extremity: lower extremity Laterality: left Qualified Code(s): L03.116 - Cellulitis of left lower limb Cirrhosis of liver with ascites Qualifiers: Hepatic cirrhosis type: alcoholic cirrhosis Qualified Code(s): K70.31 - Alcoholic cirrhosis of liver with ascites Condition: Stable Discharge Date/Time: 09/15/21 20:00
[2021-09-15 15:47] LABS: BASOPHILS % (AUTO) 0.1 %; EOSINOPHILS % (AUTO) 0.1 %; HCT - HEMATOCRIT 36.7 % (37.0-47.0); LYMPHOCYTES # (AUTO) 0.9 10^3/uL (1.5-3.5); LYMPHOCYTES % (AUTO) 4.9 %; MEAN CORPUSCULAR HEMOGLOBIN 31.7 pg (27.0-31.0); MEAN CORPUSCULAR HGB CONC 32.7 g/dL (32.0-36.0); MEAN CORPUSCULAR VOLUME 97.1 fL (81.0-99.0); MEAN PLATELET VOLUME 10.8 fL (7.9-10.8); MONOCYTES # (AUTO) 1.2 10^3/uL (0.0-1.0); MONOCYTES % (AUTO) 6.8 %; NEUTROPHILS # (AUTO) 15.7 10^3/uL (1.5-6.6); NEUTROPHILS % (AUTO) 87.6 %; PLT - PLATELET COUNT 176 10^3/uL (130-450); RED BLOOD COUNT 3.78 10^6/uL (4.20-5.40); RED CELL DISTRIBUTION WIDTH 18.1 % (12.0-15.0); WHITE BLOOD COUNT 17.9 x10^3/uL (4.8-10.8)
--- NOTE | 2021-09-15 15:57 | XRAY Report ---
PROCEDURE: Chest 1 View X-Ray INDICATIONS: chest pain TECHNIQUE: One view of the chest was acquired. COMPARISON: 08/26/2021 FINDINGS: Surgical changes and devices: None. Lungs and pleura: Saturation of left hemidiaphragm and blunting the left costophrenic angle. Right lung and pleural space clear. Atherosclerotic vascular calcification noted in the aortic arch. Mediastinum: Mediastinal contours appear normal. Heart size is normal. Bones and chest wall: No suspicious bony lesions. Overlying soft tissues appear unremarkable. IMPRESSION: Enlarging moderate left pleural effusion Reviewed by: Jw Sandoval MD on 09/15/2021 2:56 PM AKDT Approved by: Jw Sandoval MD on 09/15/2021 2:56 PM AKDT Station ID: [id number]
[2021-09-15 16:28] LABS: ALBUMIN 2.9 g/dL (3.2-5.5); ALBUMIN/GLOBULIN RATIO 0.7 (1.0-2.2); BILIRUBIN,TOTAL 11.1 mg/dL (0.2-1.0); CALCIUM 9.2 mg/dL (8.5-10.3); CREATININE 0.9 mg/dL (0.4-1.0); POTASSIUM 3.9 mmol/L (3.5-5.0); TOTAL PROTEIN 7.3 g/dL (6.7-8.2)
[2021-09-15 16:33] LABS: GLUCOSE, URINE (UA) NEGATIVE (NEGATIVE); KETONES,URINE (UA) NEGATIVE (NEGATIVE); LEUKOCYTE ESTERASE, URINE TRACE (NEGATIVE); NITRITE,URINE NEGATIVE (NEGATIVE); OCCULT BLOOD,URINE NEGATIVE (NEGATIVE); PH,URINE 6.5 PH (5.0-7.5); PROTEIN,URINE NEGATIVE (NEGATIVE); UROBILINOGEN,URINE 4 E.U./dL (NORMAL)
[2021-09-15 16:45] LABS: BILIRUBIN,URINE SMALL (NEGATIVE); CLARITY,URINE CLEAR (CLEAR); ICTOTEST,URINE POSITIVE
[2021-09-15 16:46] LABS: BACTERIA,URINE Few /HPF (None Seen); EPITHELIAL CELLS,UR FEW Transitional /HPF (<= Few); RBC,URINE 0-5 /HPF (0-5); SQUAMOUS EPITHELIAL CELL,UR NONE SEEN (<= Few); WBC CLUMPS,URINE PRESENT
[2021-09-15] MEDS ORDERED: ceFAZolin 1 GM in SODIUM CHLORIDE 0.9% MINIBAG 100 ML IV STA (17:56)
[2021-09-15] MEDS ORDERED: ceFAZolin 1 GM VIAL ONE (18:16)
[2021-09-15] MEDS ORDERED: CLINDAMYCIN 900 MG/50 ML 50 ML IV ONE (18:16)
[2021-09-15] MEDS ORDERED: SODIUM CHLORIDE FLUSH 0.9% 10 ML SYRINGE IVP PRN (19:04)
[2021-09-15] MEDS ORDERED: ONDANSETRON 4 MG/2 ML VIAL IVP PRN (19:04)
--- NOTE | 2021-09-15 19:12 | HISTORY & PHYSICAL EXAMINATION ---
Chief Complaint - Chief Complaint Chief Complaint: confusion, weakness History of Present Illness - Admitted From Admitted From:: [facility] ED - History Obtained From Records Reviewed: yes History obtained from: patient and spouse - History of Present Illness HPI Comment/Other: Patient is a 66-year-old female with medical history significant for hypertension and cirrhosis of the liver who presented to the ED via EMS with confusion/weakness. Her reports she woke up this morning confused and unable to stand. There were no symptoms or complaints prior to going to bed yesterday. EMS was called and the patient was unable to answer questions asked so she was brought to the ED for evaluation. Work-up in the ED showed a heart rate as high as 120. She had significant redness, swelling and pain on the dorsum of her left foot. Her labs showed a WBC of 17.9 and lactic acid of 3.4. She also had a protuberant abdomen secondary to ascites. As a result she was presented for admission for further treatment. At bedside she denied chest pain, dyspnea, abdominal pain, nausea, vomiting, fever or chills. 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 Patient's father from an accident where a tree fell on him. Her brother from heart disease. It is unclear what her sister from. Social History Notes: She lives at home with her . She quit drinking alcohol on 08/18/2021 after she was diagnosed with liver cirrhosis. She denies tobacco or recreational substance use. - POLST Patient has POLST: No POLST Status: Full Code Meds/Allgy - Home Medications Home Medications: Ambulatory Orders Medication Instructions Recorded Confirmed Furosemide [Lasix] 20 mg PO DAILY #30 tablet 08/19/21 09/16/21 Magnesium Oxide [Mag Ox] 400 mg PO BID 10 Days #20 tablet 08/26/21 09/16/21 Lactulose 15 ml PO BID 09/16/21 09/16/21 Multivitamin 1 tab PO DAILY 09/16/21 09/16/21 Ondansetron Odt [Zofran] 4 mg TL Q8H PRN 09/16/21 09/16/21 Pantoprazole [Protonix] 40 mg PO QDAC 09/16/21 09/16/21 Spironolactone [Aldactone] 100 mg PO DAILY 09/16/21 09/16/21 Thiamine [Vitamin B-1] 100 mg PO DAILY 09/16/21 09/16/21 oxyCODONE [Roxicodone] 5 mg PO Q4H PRN 09/16/21 09/16/21 predniSONE [Deltasone] 10 - 30 mg PO DAILY 09/16/21 09/16/21 predniSONE [Deltasone] 40 mg PO DAILY 09/16/21 09/16/21 - Allergies Allergies/Adverse Reactions: Allergies Allergy/AdvReac Type Severity Reaction Status Date / Time prednisone Allergy Hallucinati Verified 09/15/21 15:11 ons Penicillins AdvReac Hives Verified 09/15/21 15:11 Sulfa (Sulfonamide AdvReac Hives Verified 09/15/21 15:11 Antibiotics) Review of Systems - Constitutional Constitutional: denies: Fatigue, Fever - Eyes Eyes: denies: Vision loss - Ears, Nose & Throat Ears, Nose & Throat: denies: Ear pain - Cardiovascular Cariovascular: reports: Edema. denies: Chest pain, Lightheadedness, Syncope, Exertional dyspnea, Decr. exercise tolerance - Respiratory Respiratory: denies: Cough, Sputum production, Wheezing, SOB at rest, SOB with exertion - Gastrointestinal Gastrointestinal: reports: Abdominal distention, Reflux/heartburn. denies: Abdominal pain, Constipation, Diarrhea, Nausea, Vomiting - Genitourinary Genitourinary: denies: Dysuria, Frequency, Urgency, Hematuria - Musculoskeletal Musculoskeletal: denies: Muscle pain - Integumentary Integumentary: reports: Other (redness on left foot) - Neurological Neurological: denies: Focal weakness, Headache, Dizziness - Psychiatric Psychiatric: denies: Depression, Anxiety - Endocrine Endocrine: denies: Polyuria, Polydypsia - Hematologic/Lymphatic Hematologic/Lymphatic: reports: Bruising. denies: Anemia, Petechiae Prior Level of Functionality: Patient is fairly independent of activities of daily living. Exam - Vital Signs Vital Signs: Vital Signs x48h Temp Pulse Resp BP Pulse Ox 09/15/21 18:11 120 H 20 124/71 94 09/15/21 16:05 113 H 16 165/91 H 97 09/15/21 15:04 36.4 C L 117 H 20 129/76 97 - Physical Exam General Appearance: positive: Alert, Mild distress Eyes Bilateral: positive: PERRL, EOMI ENT: positive: No signs of dehydration Neck: positive: No JVD, Trachea midline Respiratory: positive: Chest non-tender, No respiratory distress, Breath sounds nml. negative: Wheezes, Rales, Rhonchi Cardiovascular: positive: No murmur, Tachycardia Abdomen: positive: Non-tender, Nml bowel sounds, Other (distended, soft) Back: positive: Nml inspection Skin: positive: Other (erythema on dorsum of left foot, bruises on extremities) Neurologic/Psychiatric: positive: Oriented x3, Mood/affect nml Conclusion/Plan - Problem List (1) Sepsis Conclusion/Plan: Secondary to cellulitis of the left lower extremity. WBC was 17.9, lactic acid 3.4 Blood cultures were drawn in the ED. Patient was given Ancef and clindamycin in the ED. Vancomycin and Rocephin ordered to start on 09/16/2021. IV hydration with normal saline at 75 mL/h. We will trend lactic acid x3 more. (2) Cellulitis Conclusion/Plan: WBC was 17.9, lactic acid 3.4 Blood cultures were drawn in the ED. Patient was given Ancef and clindamycin in the ED. Vancomycin and Rocephin ordered to start on 09/16/2021. IV hydration with normal saline at 75 mL/h. We will trend lactic acid x3 more. Qualifiers: Site of cellulitis: extremity Site of cellulitis of extremity: lower extremity Laterality: left Qualified Code(s): L03.116 - Cellulitis of left lower limb (3) Cirrhosis of liver with ascites Conclusion/Plan: Patient was given 2 L of fluid in the ED per sepsis protocol. However fluids decreased to 75 mL/h due to patient's ascites. The paracentesis ordered for 09/16/2021 morning. We will hold patient's Lasix and spironolactone for now. Likely resume in the morning. Ammonia level pending Qualifiers: Hepatic cirrhosis type: alcoholic cirrhosis Qualified Code(s): K70.31 - Alcoholic cirrhosis of liver with ascites (4) GERD (gastroesophageal reflux disease) Conclusion/Plan: Protonix 40 mg p.o. daily AC ordered. - Lab Results Fish Bones: 09/16/21 07:03 09/16/21 07:03 Core Measures - Anticipated LOS I expect patient to be DC'd or transferred within 96 hours.: Yes - DVT/VTE - Prophylaxis VTE/DVT Device ordered at admit?: Yes
[2021-09-15 19:30] LABS: B. PARAPERTUSSIS- RESP PCR PAN NOT DETECTED; B. PERTUSSIS- RESP PCR PANEL NOT DETECTED; C. PNEUMONIAE- RESP PCR PANEL NOT DETECTED; CORONAVIRUS 229E-RESP PCR NOT DETECTED; CORONAVIRUS HKU1-RESP PCR NOT DETECTED; CORONAVIRUS NL63-RESP PCR NOT DETECTED; CORONAVIRUS OC43-RESP PCR NOT DETECTED; HUMAN METAPNEUMOVIRUS NOT DETECTED; INFLUENZA A- RESP PCR PANEL NOT DETECTED; INFLUENZA B - RESP PCR PANEL NOT DETECTED; M. PNEUMONIAE- RESP PCR PANEL NOT DETECTED; PARAINFLUENZA VIRUS 1 NOT DETECTED; PARAINFLUENZA VIRUS 2 NOT DETECTED; PARAINFLUENZA VIRUS 3 NOT DETECTED; PARAINFLUENZA VIRUS 4 NOT DETECTED; RHINOVIRUS/ENTEROVIRUS NOT DETECTED; RSV- RESP PCR PANEL NOT DETECTED; SARS-CoV-2 -RESP PCR PANEL NOT DETECTED
[2021-09-15] MEDS ORDERED: SODIUM CHLORIDE 0.9% 1,000 ML IV SCH (20:00)
[2021-09-15] MEDS: SODIUM CHLORIDE 0.9% 1,000 ML IV SCH (20:05)
[2021-09-15] MEDS: SODIUM CHLORIDE FLUSH 0.9% 10 ML SYRINGE IVP SCH (21:26)
[2021-09-15] MEDS: VANCOMYCIN INJ 1 GM in SODIUM CHLORIDE 0.9% 250 ML IV SCH (21:26)
[2021-09-15] MEDS ORDERED: BACITRACIN ZINC OINT 1 PACKET TOP PRN (22:21)
[2021-09-16] MEDS: ACETAMINOPHEN 325 MG TABLET PO PRN ×3 (03:57→17:19)
[2021-09-16] MEDS: PANTOPRAZOLE 40 MG TABLET PO SCH (06:33)
[2021-09-16 07:12] LABS: BASOPHILS % (AUTO) 0.1 %; EOSINOPHILS # (AUTO) 0.2 10^3/uL (0.0-0.7); EOSINOPHILS % (AUTO) 1.4 %; HCT - HEMATOCRIT 29.8 % (37.0-47.0); HGB - HEMOGLOBIN 9.9 g/dL (12.0-16.0); LYMPHOCYTES # (AUTO) 1.1 10^3/uL (1.5-3.5); LYMPHOCYTES % (AUTO) 9.3 %; MEAN CORPUSCULAR HGB CONC 33.2 g/dL (32.0-36.0); MEAN CORPUSCULAR VOLUME 96.4 fL (81.0-99.0); MEAN PLATELET VOLUME 9.7 fL (7.9-10.8); MONOCYTES # (AUTO) 0.9 10^3/uL (0.0-1.0); MONOCYTES % (AUTO) 7.2 %; NEUTROPHILS # (AUTO) 9.8 10^3/uL (1.5-6.6); NEUTROPHILS % (AUTO) 81.5 %; PLT - PLATELET COUNT 132 10^3/uL (130-450); RED BLOOD COUNT 3.09 10^6/uL (4.20-5.40); RED CELL DISTRIBUTION WIDTH 18.4 % (12.0-15.0)
[2021-09-16 07:20] LABS: INR 2.2 (0.8-1.2); PT - PROTHROMBIN TIME 24.5 secs (9.9-12.6)
[2021-09-16 07:30] LABS: CALCIUM 8.4 mg/dL (8.5-10.3); MAGNESIUM 1.6 mg/dL (1.7-2.8); POTASSIUM 3.7 mmol/L (3.5-5.0)
[2021-09-16] MEDS: VANCOMYCIN INJ 1 GM in SODIUM CHLORIDE 0.9% 250 ML IV SCH ×2 (08:06→21:10)
[2021-09-16] MEDS: SODIUM CHLORIDE 0.9% 1,000 ML IV SCH (08:07)
[2021-09-16] MEDS ORDERED: ENOXAPARIN 40 MG/0.4 ML SYRINGE SUBQ SCH (09:00)
[2021-09-16] MEDS: SODIUM CHLORIDE FLUSH 0.9% 10 ML SYRINGE IVP SCH ×2 (09:54→17:27)
[2021-09-16] MEDS: cefTRIAXone 1 GM in SODIUM CHLORIDE 0.9% MINIBAG 100 ML IV SCH (10:25)
[2021-09-16] MEDS: polyethylene glycoL 3350 17 GM PACKET PO SCH (10:45)
[2021-09-16] MEDS ORDERED: MIN OIL/DIMETHICON/COCONUT OIL 92 GM TUBE TOP PRN (11:48)
--- NOTE | 2021-09-16 13:26 | PHARMACY PROGRESS NOTE ---
- Best Possible Medication History Admit Date and Time: 09/15/211903 Processed by: Pharmacy Medication History completed: Yes Patient Interview: Completed Secondary Source(s): Written medication list, Spouse/Significant other, Physician records, Insurance records Patient was prescribed rifaximin by [facility] at discharge this month, but insurance would not cover the medication. Patient and her are working on getting in touch with patient's PCP about submitting a PA to get the medication covered. As the person ultimately responsible for medication therapy, providers are able to order a medication from an existing home medication list in [facility] via the "Reconcile Routine" prior to Confirmation of that medication by technical support internship. Such practice is discouraged except when the physician, in their clinical judgment, deems that a medical need exists for a medication without regard to previous use.
--- NOTE | 2021-09-16 19:22 | PROVIDER PROGRESS NOTE ---
Assessment/Plan - Problem List (1) Sepsis Assessment/Plan: Improving WBC improved from 17.9 to 12 Continue Vancomycin and rocephin Lactic acid improved to 2.2 (2) Cellulitis Qualifiers: Site of cellulitis: extremity Site of cellulitis of extremity: lower extremity Laterality: left Qualified Code(s): L03.116 - Cellulitis of left lower limb Assessment/Plan: Improving WBC improved from 17.9 to 12 Continue Vancomycin and rocephin Lactic acid improved to 2.2 (3) Cirrhosis of liver with ascites Qualifiers: Hepatic cirrhosis type: alcoholic cirrhosis Qualified Code(s): K70.31 - Alcoholic cirrhosis of liver with ascites Assessment/Plan: Paracentesis could not be done today because the patient had an INR of 2.2. Will administer 5 mg of vitamin K. Will resume patient's spironolactone, Lasix and lactulose. Ammonia level today was 54.8. (4) GERD (gastroesophageal reflux disease) Assessment/Plan: Continue Protonix. - Current Meds Current Meds: Current Medications Generic Name Dose Route Start Last Admin Trade Name Freq PRN Reason Stop Dose Admin Acetaminophen 650 mg 09/15/21 19:04 09/16/21 17:19 Acetaminophen 325 Mg Tablet PO 650 mg Q4HR PRN Administration Pain 1 to 4, or Fever Bacitracin 1 packet 09/15/21 22:21 09/15/21 22:43 Bacitracin Zinc Oint 1 Packet TOP 1 packet PRN PRN Administration Skin Care Ceftriaxone Sodium 1 gm/ 100 mls @ 200 mls/hr 09/16/21 09:00 09/16/21 11:00 Sodium Chloride IV Infused DAILY JESUS Infusion Vancomycin HCl 1 gm/ Sodium 250 mls @ 167 mls/hr 09/15/21 20:00 09/16/21 09:45 Chloride IV Infused Q12H JESUS Infusion Sodium Chloride 1,000 mls @ 75 mls/hr 09/15/21 20:00 09/16/21 10:45 Normal Saline 0.9% IV 75 mls/hr .[id number] JESUS Infusion Pantoprazole Sodium 40 mg 09/16/21 07:00 09/16/21 06:33 Pantoprazole 40 Mg Tablet PO 40 mg QDAC JESUS Administration Polyethylene Glycol 17 gm 09/16/21 09:00 09/16/21 10:45 Polyethylene Glycol 3350 17 Gm Packet PO Not Given DAILY JESUS Sodium Chloride 10 ml 09/16/21 01:00 09/16/21 17:27 Sodium Chloride Flush 0.9% 10 Ml Syringe IVP Not Given 0100,0900,1700 JESUS - Lab Result Fish Bone Diagrams: 09/16/21 07:03 09/16/21 07:03 - Additional Planning My Orders: My Active Orders 09/15/21 19:04 Activity Orders [RC] Q2HR IO [RC] IOSHIFT Incentive Spirometry - RT [RC] TID Initiate Bowel Care Protocol [RC] .protocol Initiate Line Care Protocol [RC] QSHIFT Initiate Personal Care Protoco [RC] .protocol Oxygen Therapy [RC] .PRN Telemetry- [RC] Q4HR Vital Signs [RC] 0800,1600,0000 Acetaminophen [Tylenol] 650 mg PO Q4HR PRN Ondansetron Inj [Zofran Inj] 4 mg IVP Q6HR PRN Sodium Chloride Flush 0.9% [Normal Saline Flush 0.9%] 10 ml IVP PRN PRN Code Status [OTHERS] Routine Condition of Patient [OTHERS] Routine DVT Prophylaxis [OTHERS] Routine 09/15/21 20:00 Sodium Chloride 0.9% [Normal Saline 0.9%] 1,000 ml IV 75 mls/hr Vancomycin Inj [Vancomycin] 1 gm Sodium Chloride 0.9% [Normal Saline 0.9%] 250 ml IV Q12H 09/15/21 22:21 Bacitracin Zinc Oint [Bacitracin] 1 packet TOP PRN PRN 09/16/21 01:00 Sodium Chloride Flush 0.9% [Normal Saline Flush 0.9%] 10 ml IVP 0100,0900,1700 09/16/21 07:00 Pantoprazole [Protonix] 40 mg PO QDAC 09/16/21 09:00 cefTRIAXone [Rocephin] 1 gm Sodium Chloride 0.9% Minibag [Normal Saline 0.9% Minibag] 100 ml IV DAILY polyethylene glycoL 3350 [Miralax] 17 gm PO DAILY 09/16/21 11:48 Min Oil/Dimeth/Coconut Oil Crm [Cavilon] 1 applic TOP PRN PRN 09/17/21 05:00 BMP - BASIC METABOLIC PANEL [CHEM] DAILYLAB CBC - COMP BLD CT W/AUTO DIFF [HEME] DAILYLAB 09/17/21 07:30 VANCOMYCIN TROUGH [CHEM] Timed 09/18/21 05:00 BMP - BASIC METABOLIC PANEL [CHEM] DAILYLAB CBC - COMP BLD CT W/AUTO DIFF [HEME] DAILYLAB 09/19/21 05:00 BMP - BASIC METABOLIC PANEL [CHEM] DAILYLAB CBC - COMP BLD CT W/AUTO DIFF [HEME] DAILYLAB 09/20/21 05:00 BMP - BASIC METABOLIC PANEL [CHEM] DAILYLAB CBC - COMP BLD CT W/AUTO DIFF [HEME] DAILYLAB Subjective - Subjective Patient Reports: Other (Resting comfortably in bed at time of exam. Reports feeling much better today than at the time of admission. Denied chest pain, dyspnea. Reported mild abdominal pain. Redness in left lower extremity is significantly improved. Abdomen protuberant.) Objective Vital Signs: Vital Signs - 24 hr 09/15/21 09/15/21 09/15/21 19:28 19:57 20:22 Temperature 36.9 C 36.9 C 37.0 C Heart Rate 116 H 116 H Heart Rate [ 114 H Monitoring electrodes] Respiratory 16 16 16 Rate Blood Pressure 127/98 H 134/75 H Blood Pressure 136/83 H [Right Brachial artery] O2 Saturation 98 97 98 09/16/21 09/16/21 09/16/21 00:50 03:59 07:38 Temperature 36.9 C 36.8 C 36.9 C Heart Rate Heart Rate [ 116 H 117 H 110 H Monitoring electrodes] Respiratory 18 20 19 Rate Blood Pressure Blood Pressure 122/73 125/60 106/73 [Right Brachial artery] O2 Saturation 92 95 98 09/16/21 09/16/21 13:19 16:11 Temperature Heart Rate Heart Rate [ 110 H 102 H Monitoring electrodes] Respiratory 19 17 Rate Blood Pressure Blood Pressure 128/74 150/81 H [Right Brachial artery] O2 Saturation 97 97 Oxygen O2 Source Room air I&O (Last 24 Hrs): Intake and Output Totals x24h 09/14/21 09/15/21 09/16/21 23:59 23:59 23:59 Intake Total 1950 1748.75 Output Total 560 Balance 1950 1188.75 General: Alert, Oriented x3, Mild distress HEENT: PERRLA, EOMI Neck: Supple, No JVD Neuro: Alert, Oriented Times 3 Cardiovascular: Regular rate Respiratory: Chest non-tender, No respiratory distress, Breath sounds nml Abdomen: Normal bowel sounds, Soft, Other (distended) Extremities: Other (+1 edema) Comments/Notes: redness on left foot. mild weeping - Results Results: Laboratory Results WBC 12.0 x10^3/uL (4.8-10.8) H 09/16/21 07:03 RBC 3.09 10^6/uL (4.20-5.40) L 09/16/21 07:03 Hgb 9.9 g/dL (12.0-16.0) L 09/16/21 07:03 Hct 29.8 % (37.0-47.0) L 09/16/21 07:03 MCV 96.4 fL (81.0-99.0) 09/16/21 07:03 MCH 32.0 pg (27.0-31.0) H 09/16/21 07:03 MCHC 33.2 g/dL (32.0-36.0) 09/16/21 07:03 RDW 18.4 % (12.0-15.0) H 09/16/21 07:03 Plt Count 132 10^3/uL (130-450) 09/16/21 07:03 MPV 9.7 fL (7.9-10.8) 09/16/21 07:03 Neut # (Auto) 9.8 10^3/uL (1.5-6.6) H 09/16/21 07:03 Lymph # (Auto) 1.1 10^3/uL (1.5-3.5) L 09/16/21 07:03 [place] # (Auto) 0.9 10^3/uL (0.0-1.0) 09/16/21 07:03 Eos # (Auto) 0.2 10^3/uL (0.0-0.7) 09/16/21 07:03 Baso # (Auto) 0.0 10^3/uL (0.0-0.1) 09/16/21 07:03 Absolute Nucleated RBC 0.00 x10^3/uL 09/16/21 07:03 Nucleated RBC % 0.0 /100WBC 09/16/21 07:03 PT 24.5 secs (9.9-12.6) H 09/16/21 07:03 INR (Fingerstick) 1.6 (0.8-1.2) H 09/15/21 16:20 INR 2.2 (0.8-1.2) H 09/16/21 07:03 Sodium 132 mmol/L (135-145) L 09/16/21 07:03 Potassium 3.7 mmol/L (3.5-5.0) 09/16/21 07:03 Chloride 98 mmol/L (101-111) L 09/16/21 07:03 Carbon Dioxide 22 mmol/L (21-32) 09/16/21 07:03 Anion Gap 12.0 (6-13) 09/16/21 07:03 BUN 22 mg/dL (6-20) H 09/16/21 07:03 Creatinine 1.0 mg/dL (0.4-1.0) 09/16/21 07:03 Estimated GFR (MDRD) 55 (>89) L 09/16/21 07:03 Glucose 114 mg/dL (70-100) H 09/16/21 07:03 Lactic Acid 2.2 mmol/L (0.5-2.2) 09/16/21 07:03 Calcium 8.4 mg/dL (8.5-10.3) L 09/16/21 07:03 Magnesium 1.6 mg/dL (1.7-2.8) L 09/16/21 07:03 Total Bilirubin 11.1 mg/dL (0.2-1.0) H 09/15/21 15:34 AST 105 IU/L (10-42) H 09/15/21 15:34 ALT 96 IU/L (10-60) H 09/15/21 15:34 Alkaline Phosphatase 156 IU/L (42-121) H 09/15/21 15:34 Ammonia 54.8 umol/L (7-35) H 09/16/21 07:03 Total Protein 7.3 g/dL (6.7-8.2) 09/15/21 15:34 Albumin 2.9 g/dL (3.2-5.5) L 09/15/21 15:34 Globulin 4.3 g/dL (2.1-4.2) H 09/15/21 15:34 Albumin/Globulin Ratio 0.7 (1.0-2.2) L 09/15/21 15:34 Lipase 150 U/L (22-51) H 09/15/21 15:34 Urine Color DARK YELLOW 09/15/21 16:25 Urine Clarity CLEAR (CLEAR) 09/15/21 16:25 Urine pH 6.5 PH (5.0-7.5) 09/15/21 16:25 Ur Specific [place] 1.015 (1.002-1.030) 09/15/21 16:25 Urine Protein NEGATIVE mg/dL (NEGATIVE) 09/15/21 16:25 Urine Glucose (UA) NEGATIVE mg/dL (NEGATIVE) 09/15/21 16:25 Urine Ketones NEGATIVE mg/dL (NEGATIVE) 09/15/21 16:25 Urine Occult Blood NEGATIVE (NEGATIVE) 09/15/21 16:25 Urine Nitrite NEGATIVE (NEGATIVE) 09/15/21 16:25 Urine Bilirubin SMALL (NEGATIVE) H 09/15/21 16:25 Urine Urobilinogen 4 E.U./dL (NORMAL) H 09/15/21 16:25 Ur Leukocyte Esterase TRACE (NEGATIVE) H 09/15/21 16:25 Urine RBC 0-5 /HPF (0-5) 09/15/21 16:25 Urine WBC 6-10 /HPF (0-5) H 09/15/21 16:25 Urine WBC Clumps PRESENT 09/15/21 16:25 Ur Epithelial Cells FEW Transitional /HPF (<= Few) 09/15/21 16:25 Ur Squamous Epith Cells NONE SEEN (<= Few) 09/15/21 16:25 Urine Bacteria Few /HPF (None Seen) 09/15/21 16:25 Ur Microscopic Review INDICATED 09/15/21 16:25 Urine Culture Comments INDICATED 09/15/21 16:25 Nasal Adenovirus (PCR) NOT DETECTED 09/15/21 18:15 Nasal B. parapertussis DNA (PCR) NOT DETECTED 09/15/21 18:15 Nasal Coronavir 229E PCR NOT DETECTED 09/15/21 18:15 Nasal Coronavir HKU1 PCR NOT DETECTED 09/15/21 18:15 Nasal Coronavir NL63 PCR NOT DETECTED 09/15/21 18:15 Nasal Coronavir OC43 PCR NOT DETECTED 09/15/21 18:15 Nasal Enterovir/Rhinovir PCR NOT DETECTED 09/15/21 18:15 Nasal Influenza B PCR NOT DETECTED 09/15/21 18:15 Nasal Influenza A PCR NOT DETECTED 09/15/21 18:15 Nasal Parainfluen 1 PCR NOT DETECTED 09/15/21 18:15 Nasal Parainfluen 2 PCR NOT DETECTED 09/15/21 18:15 Nasal Parainfluen 3 PCR NOT DETECTED 09/15/21 18:15 Nasal Parainfluen 4 PCR NOT DETECTED 09/15/21 18:15 Nasal RSV (PCR) NOT DETECTED 09/15/21 18:15 Nasal Screen MRSA (PCR) POSITIVE (NEGATIVE) A* 09/15/21 20:25 Nasal B.pertussis DNA PCR NOT DETECTED 09/15/21 18:15 Nasal C.pneumoniae (PCR) NOT DETECTED 09/15/21 18:15 [place] Human Metapneumo PCR NOT DETECTED 09/15/21 18:15 Nasal M.pneumoniae (PCR) NOT DETECTED 09/15/21 18:15 Nasal SARS-CoV-2 (PCR) NOT DETECTED 09/15/21 18:15 - Procedures Procedures: Procedures EXCISION OF ASCENDING COLON, ENDO, DIAGN (03/15/21) REPLACEMENT OF LEFT LENS WITH SYNTH SUB, PERC APPROACH (04/08/18) ABX Reporting Has patient been on IV antibiotics over the past 48 hours?: Yes
[2021-09-16] MEDS ORDERED: oxyCODONE 5 MG TABLET PO PRN (21:15)
[2021-09-16] MEDS ORDERED: PHYTONADIONE 10 MG/ML AMP PO ONE (21:17)
[2021-09-16] MEDS ORDERED: CHERRY SYRUP 10 ML UDC PO ONE (21:17)
[2021-09-16] MEDS: LACTULOSE 10 GM /15 ML UDC PO SCH (21:41)
[2021-09-16] MEDS: MAGNESIUM OXIDE 400 MG TABLET PO SCH (21:42)
[2021-09-16] MEDS: rOPINIRole 0.25 MG TABLET PO SCH (22:33)
[2021-09-17] MEDS: SODIUM CHLORIDE FLUSH 0.9% 10 ML SYRINGE IVP SCH ×4 (00:13→23:43)
[2021-09-17] MEDS: ACETAMINOPHEN 325 MG TABLET PO PRN (04:40)
[2021-09-17 05:42] LABS: BASOPHILS % (AUTO) 0.1 %; EOSINOPHILS # (AUTO) 0.3 10^3/uL (0.0-0.7); EOSINOPHILS % (AUTO) 3.7 %; HCT - HEMATOCRIT 29.4 % (37.0-47.0); HGB - HEMOGLOBIN 9.9 g/dL (12.0-16.0); LYMPHOCYTES # (AUTO) 1.1 10^3/uL (1.5-3.5); MEAN CORPUSCULAR HEMOGLOBIN 31.9 pg (27.0-31.0); MEAN CORPUSCULAR HGB CONC 33.7 g/dL (32.0-36.0); MEAN CORPUSCULAR VOLUME 94.8 fL (81.0-99.0); MEAN PLATELET VOLUME 9.9 fL (7.9-10.8); MONOCYTES # (AUTO) 0.7 10^3/uL (0.0-1.0); MONOCYTES % (AUTO) 8.5 %; NEUTROPHILS # (AUTO) 6.3 10^3/uL (1.5-6.6); NEUTROPHILS % (AUTO) 74.3 %; PLT - PLATELET COUNT 120 10^3/uL (130-450); RED CELL DISTRIBUTION WIDTH 18.4 % (12.0-15.0); WHITE BLOOD COUNT 8.5 x10^3/uL (4.8-10.8)
[2021-09-17 05:45] LABS: INR 2.3 (0.8-1.2); PT - PROTHROMBIN TIME 25.1 secs (9.9-12.6)
[2021-09-17 05:48] LABS: CALCIUM 8.2 mg/dL (8.5-10.3); CREATININE 0.8 mg/dL (0.4-1.0); POTASSIUM 3.3 mmol/L (3.5-5.0)
[2021-09-17] MEDS: PANTOPRAZOLE 40 MG TABLET PO SCH (06:47)
[2021-09-17 08:26] LABS: VANCOMYCIN,TROUGH 17.3 ug/mL (10.0-20.0)
[2021-09-17] MEDS: SPIRONOLACTONE 25 MG TABLET PO SCH (08:30)
[2021-09-17] MEDS: THIAMINE 100 MG TABLET PO SCH (08:30)
[2021-09-17] MEDS: FUROSEMIDE 20 MG TABLET PO SCH (08:30)
[2021-09-17] MEDS: LACTULOSE 10 GM /15 ML UDC PO SCH ×2 (08:30→20:19)
[2021-09-17] MEDS: cefTRIAXone 1 GM in SODIUM CHLORIDE 0.9% MINIBAG 100 ML IV SCH (08:31)
[2021-09-17] MEDS: MAGNESIUM OXIDE 400 MG TABLET PO SCH ×2 (08:31→20:19)
[2021-09-17] MEDS: MULTIVITAMIN TABLET PO SCH (08:31)
[2021-09-17] MEDS ORDERED: POTASSIUM CHLORIDE 20 MEQ TABLET PO ONE (08:31)
[2021-09-17] MEDS: polyethylene glycoL 3350 17 GM PACKET PO SCH (08:31)
[2021-09-17] MEDS: VANCOMYCIN INJ 1 GM in SODIUM CHLORIDE 0.9% 250 ML IV SCH ×2 (09:05→20:19)
[2021-09-17 09:48] LABS: ALBUMIN 2.2 g/dL (3.2-5.5); ALBUMIN/GLOBULIN RATIO 0.6 (1.0-2.2); BILIRUBIN,TOTAL 8.8 mg/dL (0.2-1.0); CALCIUM 8.4 mg/dL (8.5-10.3); CREATININE 0.9 mg/dL (0.4-1.0); POTASSIUM 3.3 mmol/L (3.5-5.0); TOTAL PROTEIN 5.6 g/dL (6.7-8.2)
[2021-09-17] MEDS ORDERED: ALBUMIN 25% 12.5 GM/50 ML VIAL IV STA (13:58)
--- NOTE | 2021-09-17 14:03 | PROVIDER PROGRESS NOTE ---
Assessment/Plan - Problem List (1) Sepsis Assessment/Plan: Improving, WBC improved from 17.9 to 12, then down to normal arrange. Blood culture is negative for bacteremia. pt has no fever. lactic acid is down to normal arrange. Continue Vancomycin and rocephin (2) Cellulitis pt report her left lower extremity cellulitis started more than one month ago, then developed ulcer with drainage. now pt is on the dressing. Blood culture is negative for bacteremia. pt take steroid at home for her hepatic failure, and with hepatic failure. pt is at immunocompromised status. we ordered wound care, and wound care consultation with MAC ID continue Continue Vancomycin and rocephin (3) Cirrhosis of liver with ascites pt has hx of alcoholic hepatic liver failure with cirrhosis and ascites who continues to decompensate despite not drinking since August 21. her Meld score has 27 with 20% Estimated 3-month mortality. pt was started on steroid with her nick setter. Today pt is comfortable, alert and oriented without respiratory distress. pt's ING is 2.3 on today. pt is not urgent to need paracentesis now. today pt had 54.8 ammonia level. will continue patient's spironolactone, Lasix and lactulose. pt has lower albumin, order IV of albumin, resume home steroid Prednisone. (4)alcoholic hepatic failure pt present elevated liver with hx of alcoholic hepatic liver failure with cirrhosis and ascites who continues to decompensate despite not drinking since August 21. her Meld score has 27 with 20% Estimated 3-month mortality. strongly advise pt avoid alcohol. pt had 54.8 ammonia level, continue lactulose. pt has lower albumin, order IV of albumin advise pt followup with her nick setter closely (5) hepatic Encephalopathy improved. pt has no confused on today, she report her medical hx and report her last alcohol drinking is August 21. today pt had 54.8 ammonia level. resume home lactulose. - Current Meds Current Meds: Current Medications Generic Name Dose Route Start Last Admin Trade Name Freq PRN Reason Stop Dose Admin Acetaminophen 650 mg 09/15/21 19:04 09/17/21 04:40 Acetaminophen 325 Mg Tablet PO 650 mg Q4HR PRN Administration Pain 1 to 4, or Fever Bacitracin 1 packet 09/15/21 22:21 09/15/21 22:43 Bacitracin Zinc Oint 1 Packet TOP 1 packet PRN PRN Administration Skin Care Furosemide 20 mg 05/24/22 09:00 09/17/21 08:30 Furosemide 20 Mg Tablet PO 20 mg DAILY JESUS Administration Ceftriaxone Sodium 1 gm/ 100 mls @ 200 mls/hr 09/16/21 09:00 09/17/21 09:04 Sodium Chloride IV Infused DAILY JESUS Infusion Vancomycin HCl 1 gm/ Sodium 250 mls @ 167 mls/hr 09/15/21 20:00 09/17/21 10:35 Chloride IV Infused Q12H JESUS Infusion Lactulose 10 gm 09/16/21 22:00 09/17/21 08:30 Lactulose 10 Gm /15 Ml Udc PO 10 gm BID JESUS Administration Magnesium Oxide 400 mg 09/16/21 22:00 09/17/21 08:31 Magnesium Oxide 400 Mg Tablet PO 400 mg BID JESUS Administration Multivitamins 1 tab 09/17/21 09:00 09/17/21 08:31 Multivitamin Tablet PO 1 tab DAILY JESUS Administration Oxycodone HCl 5 mg 09/16/21 21:15 09/17/21 06:47 Oxycodone 5 Mg Tablet PO 5 mg Q4H PRN Administration PAIN Pantoprazole Sodium 40 mg 09/16/21 07:00 09/17/21 06:47 Pantoprazole 40 Mg Tablet PO 40 mg QDAC JESUS Administration Polyethylene Glycol 17 gm 09/16/21 09:00 09/17/21 08:31 Polyethylene Glycol 3350 17 Gm Packet PO 17 gm DAILY JESUS Administration Ropinirole HCl 0.25 mg 09/16/21 22:07 09/16/21 22:33 Ropinirole 0.25 Mg Tablet PO 0.25 mg QPM JESUS Administration Sodium Chloride 10 ml 09/16/21 01:00 09/17/21 08:41 Sodium Chloride Flush 0.9% 10 Ml Syringe IVP 10 ml 0100,0900,1700 JESUS Administration Spironolactone 100 mg 09/17/21 09:00 09/17/21 08:30 Spironolactone 25 Mg Tablet PO 100 mg DAILY JESUS Administration Thiamine HCl 100 mg 09/17/21 09:00 09/17/21 08:30 Thiamine 100 Mg Tablet PO 100 mg DAILY JESUS Administration - Lab Result Fish Bone Diagrams: 09/17/21 05:31 09/17/21 05:31 - Additional Planning My Orders: My Active Orders 09/17/21 Wound Consult MAC [MAC] Routine 09/17/21 10:30 Wound Care - MAC [RC] .ONCE 09/17/21 13:58 Albumin 25% @ 50 mls/hr x 1 Albumin 25% [Albuminar-25] 12.5 gm in 50 ml IV ONCE 09/18/21 05:00 AMMONIA [CHEM] DAILYLAB MAGNESIUM [CHEM] DAILYLAB 09/19/21 05:00 AMMONIA [CHEM] DAILYLAB MAGNESIUM [CHEM] DAILYLAB 09/20/21 05:00 AMMONIA [CHEM] DAILYLAB MAGNESIUM [CHEM] DAILYLAB 09/21/21 05:00 AMMONIA [CHEM] DAILYLAB Subjective - Subjective Patient Reports: Resting Comfortably Objective Vital Signs: Vital Signs - 24 hr 09/16/21 09/16/21 09/16/21 16:11 20:17 23:33 Temperature 36.4 C L 36.6 C Heart Rate [ 102 H 109 H 110 H Monitoring electrodes] Respiratory 17 20 20 Rate Blood Pressure 150/81 H 152/73 H 145/78 H [Right Brachial artery] O2 Saturation 97 99 98 09/17/21 09/17/21 09/17/21 04:42 08:30 12:12 Temperature 36.6 C 36.5 C Heart Rate [ 114 H 106 H 106 H Monitoring electrodes] Respiratory 20 17 18 Rate Blood Pressure 122/66 113/68 113/64 [Right Brachial artery] O2 Saturation 96 94 94 Oxygen O2 Source Room air I&O (Last 24 Hrs): Intake and Output Totals x24h 09/15/21 09/16/21 09/17/21 23:59 23:59 23:59 Intake Total 1950 3338.50 650 Output Total 560 Balance 1950 2778.50 650 General: Alert, Oriented x3, Cooperative, No acute distress HEENT: Atraumatic Neck: Supple Lymphatic: no adenopathy Neuro: Alert, Non Focal, Oriented Times 3 Cardiovascular: Regular rate, Normal S1, Normal S2 Respiratory: Chest non-tender, No respiratory distress Abdomen: Normal bowel sounds, Soft Extremities: Normal pulses - Results Results: Laboratory Results WBC 8.5 x10^3/uL (4.8-10.8) 09/17/21 05:31 RBC 3.10 10^6/uL (4.20-5.40) L 09/17/21 05:31 Hgb 9.9 g/dL (12.0-16.0) L 09/17/21 05:31 Hct 29.4 % (37.0-47.0) L 09/17/21 05:31 MCV 94.8 fL (81.0-99.0) 09/17/21 05:31 MCH 31.9 pg (27.0-31.0) H 09/17/21 05:31 MCHC 33.7 g/dL (32.0-36.0) 09/17/21 05:31 RDW 18.4 % (12.0-15.0) H 09/17/21 05:31 Plt Count 120 10^3/uL (130-450) L 09/17/21 05:31 MPV 9.9 fL (7.9-10.8) 09/17/21 05:31 Neut # (Auto) 6.3 10^3/uL (1.5-6.6) 09/17/21 05:31 Lymph # (Auto) 1.1 10^3/uL (1.5-3.5) L 09/17/21 05:31 [place] # (Auto) 0.7 10^3/uL (0.0-1.0) 09/17/21 05:31 Eos # (Auto) 0.3 10^3/uL (0.0-0.7) 09/17/21 05:31 Baso # (Auto) 0.0 10^3/uL (0.0-0.1) 09/17/21 05:31 Absolute Nucleated RBC 0.00 x10^3/uL 09/17/21 05:31 Nucleated RBC % 0.0 /100WBC 09/17/21 05:31 PT 25.1 secs (9.9-12.6) H 09/17/21 05:31 INR (Fingerstick) 1.6 (0.8-1.2) H 09/15/21 16:20 INR 2.3 (0.8-1.2) H 09/17/21 05:31 Sodium 130 mmol/L (135-145) L 09/17/21 05:31 Sodium 131 mmol/L (135-145) L 09/17/21 05:31 Potassium 3.3 mmol/L (3.5-5.0) L 09/17/21 05:31 Potassium 3.3 mmol/L (3.5-5.0) L 09/17/21 05:31 Chloride 100 mmol/L (101-111) L 09/17/21 05:31 Chloride 101 mmol/L (101-111) 09/17/21 05:31 Carbon Dioxide 20 mmol/L (21-32) L 09/17/21 05:31 Carbon Dioxide 21 mmol/L (21-32) 09/17/21 05:31 Anion Gap 9.0 (6-13) 09/17/21 05:31 Anion Gap 10.0 (6-13) 09/17/21 05:31 BUN 18 mg/dL (6-20) 09/17/21 05:31 BUN 19 mg/dL (6-20) 09/17/21 05:31 Creatinine 0.8 mg/dL (0.4-1.0) 09/17/21 05:31 Creatinine 0.9 mg/dL (0.4-1.0) 09/17/21 05:31 Estimated GFR (MDRD) 62 (>89) L 09/17/21 05:31 Estimated GFR (MDRD) 72 (>89) L 09/17/21 05:31 Glucose 115 mg/dL (70-100) H 09/17/21 05:31 Glucose 119 mg/dL (70-100) H 09/17/21 05:31 Lactic Acid 2.2 mmol/L (0.5-2.2) 09/16/21 07:03 Calcium 8.2 mg/dL (8.5-10.3) L 09/17/21 05:31 Calcium 8.4 mg/dL (8.5-10.3) L 09/17/21 05:31 Magnesium 2.0 mg/dL (1.7-2.8) 09/17/21 08:07 Total Bilirubin 8.8 mg/dL (0.2-1.0) H 09/17/21 05:31 AST 70 IU/L (10-42) H 09/17/21 05:31 ALT 61 IU/L (10-60) H 09/17/21 05:31 Alkaline Phosphatase 116 IU/L (42-121) 09/17/21 05:31 Ammonia 54.8 umol/L (7-35) H 09/16/21 07:03 Total Protein 5.6 g/dL (6.7-8.2) L 09/17/21 05:31 Albumin 2.2 g/dL (3.2-5.5) L 09/17/21 05:31 Globulin 3.4 g/dL (2.1-4.2) 09/17/21 05:31 Albumin/Globulin Ratio 0.6 (1.0-2.2) L 09/17/21 05:31 Lipase 150 U/L (22-51) H 09/15/21 15:34 Urine Color DARK YELLOW 09/15/21 16:25 Urine Clarity CLEAR (CLEAR) 09/15/21 16:25 Urine pH 6.5 PH (5.0-7.5) 09/15/21 16:25 Ur Specific [place] 1.015 (1.002-1.030) 09/15/21 16:25 Urine Protein NEGATIVE mg/dL (NEGATIVE) 09/15/21 16:25 Urine Glucose (UA) NEGATIVE mg/dL (NEGATIVE) 09/15/21 16:25 Urine Ketones NEGATIVE mg/dL (NEGATIVE) 09/15/21 16:25 Urine Occult Blood NEGATIVE (NEGATIVE) 09/15/21 16:25 Urine Nitrite NEGATIVE (NEGATIVE) 09/15/21 16:25 Urine Bilirubin SMALL (NEGATIVE) H 09/15/21 16:25 Urine Urobilinogen 4 E.U./dL (NORMAL) H 09/15/21 16:25 Ur Leukocyte Esterase TRACE (NEGATIVE) H 09/15/21 16:25 Urine RBC 0-5 /HPF (0-5) 09/15/21 16:25 Urine WBC 6-10 /HPF (0-5) H 09/15/21 16:25 Urine WBC Clumps PRESENT 09/15/21 16:25 Ur Epithelial Cells FEW Transitional /HPF (<= Few) 09/15/21 16:25 Ur Squamous Epith Cells NONE SEEN (<= Few) 09/15/21 16:25 Urine Bacteria Few /HPF (None Seen) 09/15/21 16:25 Ur Microscopic Review INDICATED 09/15/21 16:25 Urine Culture Comments INDICATED 09/15/21 16:25 Nasal Adenovirus (PCR) NOT DETECTED 09/15/21 18:15 Nasal B. parapertussis DNA (PCR) NOT DETECTED 09/15/21 18:15 Nasal Coronavir 229E PCR NOT DETECTED 09/15/21 18:15 Nasal Coronavir HKU1 PCR NOT DETECTED 09/15/21 18:15 Nasal Coronavir NL63 PCR NOT DETECTED 09/15/21 18:15 Nasal Coronavir OC43 PCR NOT DETECTED 09/15/21 18:15 Nasal Enterovir/Rhinovir PCR NOT DETECTED 09/15/21 18:15 Nasal Influenza B PCR NOT DETECTED 09/15/21 18:15 Nasal Influenza A PCR NOT DETECTED 09/15/21 18:15 Nasal Parainfluen 1 PCR NOT DETECTED 09/15/21 18:15 Nasal Parainfluen 2 PCR NOT DETECTED 09/15/21 18:15 Nasal Parainfluen 3 PCR NOT DETECTED 09/15/21 18:15 Nasal Parainfluen 4 PCR NOT DETECTED 09/15/21 18:15 Nasal RSV (PCR) NOT DETECTED 09/15/21 18:15 Nasal Screen MRSA (PCR) POSITIVE (NEGATIVE) A* 09/15/21 20:25 Nasal B.pertussis DNA PCR NOT DETECTED 09/15/21 18:15 Nasal C.pneumoniae (PCR) NOT DETECTED 09/15/21 18:15 [place] Human Metapneumo PCR NOT DETECTED 09/15/21 18:15 Nasal M.pneumoniae (PCR) NOT DETECTED 09/15/21 18:15 Nasal SARS-CoV-2 (PCR) NOT DETECTED 09/15/21 18:15 Last Dose Date UNK 09/17/21 08:07 Last Dose Time UNK 09/17/21 08:07 Vancomycin Trough 17.3 ug/mL (10.0-20.0) 09/17/21 08:07 - Procedures Procedures: Procedures EXCISION OF ASCENDING COLON, ENDO, DIAGN (03/15/21) REPLACEMENT OF LEFT LENS WITH SYNTH SUB, PERC APPROACH (04/08/18) ABX Reporting Has patient been on IV antibiotics over the past 48 hours?: Yes Current Medications - Current Medications Current Medications: Active Medications Acetaminophen (Acetaminophen 325 Mg Tablet) 650 mg PO Q4HR PRN PRN Reason: Pain 1 to 4, or Fever Last Admin: 09/17/21 04:40 Dose: 650 mg Bacitracin (Bacitracin Zinc Oint 1 Packet) 1 packet TOP PRN PRN PRN Reason: Skin Care Last Admin: 05/22/22 22:43 Dose: 1 packet Furosemide (Furosemide 20 Mg Tablet) 20 mg PO DAILY [facility] Last Admin: 09/17/21 08:30 Dose: 20 mg Ceftriaxone Sodium 1 gm/ (Sodium Chloride) 100 mls @ 200 mls/hr IV DAILY [facility] Last Infusion: 09/17/21 09:04 Dose: Infused Vancomycin HCl 1 gm/ Sodium (Chloride) 250 mls @ 167 mls/hr IV Q12H [facility] Last Infusion: 09/17/21 10:35 Dose: Infused Albumin Human (Albuminar-25) 12.5 gm in 50 mls @ 50 mls/hr IV ONCE STA Stop: 09/17/21 14:57 Last Admin: 09/17/21 14:36 Dose: 50 mls/hr Lactulose (Lactulose 10 Gm /15 Ml Udc) 10 gm PO BID [facility] Last Admin: 09/17/21 08:30 Dose: 10 gm Magnesium Oxide (Magnesium Oxide 400 Mg Tablet) 400 mg PO BID [facility] Last Admin: 09/17/21 08:31 Dose: 400 mg Mineral Oil (Min Oil/Dimethicon/Coconut Oil 92 Gm Tube) 1 applic TOP PRN PRN PRN Reason: Skin Care Multivitamins (Multivitamin Tablet) 1 tab PO DAILY [facility] Last Admin: 09/17/21 08:31 Dose: 1 tab Ondansetron HCl (Ondansetron 4 Mg/2 Ml Vial) 4 mg IVP Q6HR PRN PRN Reason: Nausea / Vomiting Oxycodone HCl (Oxycodone 5 Mg Tablet) 5 mg PO Q4H PRN PRN Reason: PAIN Last Admin: 09/17/21 06:47 Dose: 5 mg Pantoprazole Sodium (Pantoprazole 40 Mg Tablet) 40 mg PO QDAC [facility] Last Admin: 09/17/21 06:47 Dose: 40 mg Polyethylene Glycol (Polyethylene Glycol 3350 17 Gm Packet) 17 gm PO DAILY [facility] Last Admin: 09/17/21 08:31 Dose: 17 gm Prednisone (Prednisone 20 Mg Tablet) 40 mg PO DAILYWM [facility] Stop: 10/02/21 08:01 Prednisone (Prednisone 10 Mg Tablet) 10 - 30 mg PO DAILY [facility] Ropinirole HCl (Ropinirole 0.25 Mg Tablet) 0.25 mg PO QPM [facility] Last Admin: 09/16/21 22:33 Dose: 0.25 mg Sodium Chloride (Sodium Chloride Flush 0.9% 10 Ml Syringe) 10 ml IVP PRN PRN PRN Reason: NEEDED PER PROVIDER ORDERS Sodium Chloride (Sodium Chloride Flush 0.9% 10 Ml Syringe) 10 ml IVP 0100,0900,1700 [facility] Last Admin: 09/17/21 08:41 Dose: 10 ml Spironolactone (Spironolactone 25 Mg Tablet) 100 mg PO DAILY [facility] Last Admin: 09/17/21 08:30 Dose: 100 mg Thiamine HCl (Thiamine 100 Mg Tablet) 100 mg PO DAILY [facility] Last Admin: 09/17/21 08:30 Dose: 100 mg Lactulose 15 ml PO BID 09/16/21 Multivitamin 1 tab PO DAILY 09/16/21 Ondansetron Odt [Zofran] 4 mg TL Q8H PRN 09/16/21 Pantoprazole [Protonix] 40 mg PO QDAC 09/16/21 Spironolactone [Aldactone] 100 mg PO DAILY 09/16/21 Thiamine [Vitamin B-1] 100 mg PO DAILY 09/16/21 oxyCODONE [Roxicodone] 5 mg PO Q4H PRN 09/16/21 predniSONE [Deltasone] 10 - 30 mg PO DAILY 09/16/21 predniSONE [Deltasone] 40 mg PO DAILY 09/16/21
[2021-09-17] MEDS ORDERED: predniSONE 20 MG TABLET PO SCH (17:00)
[2021-09-17] MEDS: ethyl alcohoL 62% SWAB AMPULE NAS SCH (20:18)
[2021-09-17] MEDS: rOPINIRole 0.25 MG TABLET PO SCH (20:18)
[2021-09-18] MEDS: PANTOPRAZOLE 40 MG TABLET PO SCH (05:46)
[2021-09-18 05:54] LABS: BASOPHILS % (AUTO) 0.1 %; EOSINOPHILS % (AUTO) 0.1 %; HCT - HEMATOCRIT 29.4 % (37.0-47.0); LYMPHOCYTES # (AUTO) 0.7 10^3/uL (1.5-3.5); LYMPHOCYTES % (AUTO) 7.5 %; MEAN CORPUSCULAR HEMOGLOBIN 31.9 pg (27.0-31.0); MEAN CORPUSCULAR VOLUME 93.9 fL (81.0-99.0); MEAN PLATELET VOLUME 9.7 fL (7.9-10.8); MONOCYTES # (AUTO) 0.5 10^3/uL (0.0-1.0); MONOCYTES % (AUTO) 5.1 %; NEUTROPHILS # (AUTO) 8.3 10^3/uL (1.5-6.6); NEUTROPHILS % (AUTO) 86.8 %; PLT - PLATELET COUNT 141 10^3/uL (130-450); RED BLOOD COUNT 3.13 10^6/uL (4.20-5.40); RED CELL DISTRIBUTION WIDTH 18.5 % (12.0-15.0); WHITE BLOOD COUNT 9.6 x10^3/uL (4.8-10.8)
[2021-09-18 05:58] LABS: INR 1.9 (0.8-1.2); PT - PROTHROMBIN TIME 21.6 secs (9.9-12.6)
[2021-09-18 06:05] LABS: CALCIUM 8.5 mg/dL (8.5-10.3); CREATININE 0.9 mg/dL (0.4-1.0); MAGNESIUM 1.8 mg/dL (1.7-2.8)
[2021-09-18] MEDS: SODIUM CHLORIDE FLUSH 0.9% 10 ML SYRINGE IVP SCH ×3 (08:36→21:39)
[2021-09-18] MEDS: MULTIVITAMIN TABLET PO SCH (08:40)
[2021-09-18] MEDS: polyethylene glycoL 3350 17 GM PACKET PO SCH (08:40)
[2021-09-18] MEDS: THIAMINE 100 MG TABLET PO SCH (08:40)
[2021-09-18] MEDS: FUROSEMIDE 20 MG TABLET PO SCH (08:40)
[2021-09-18] MEDS: MAGNESIUM OXIDE 400 MG TABLET PO SCH ×2 (08:40→21:32)
[2021-09-18] MEDS: ethyl alcohoL 62% SWAB AMPULE NAS SCH ×2 (08:40→21:30)
[2021-09-18] MEDS: cefTRIAXone 1 GM in SODIUM CHLORIDE 0.9% MINIBAG 100 ML IV SCH (08:40)
[2021-09-18] MEDS: SPIRONOLACTONE 25 MG TABLET PO SCH (08:40)
[2021-09-18] MEDS: LACTULOSE 10 GM /15 ML UDC PO SCH ×2 (08:41→21:31)
[2021-09-18] MEDS ORDERED: ALBUMIN 25% 12.5 GM/50 ML VIAL IV STA (08:46)
[2021-09-18] MEDS: ACETAMINOPHEN 325 MG TABLET PO PRN (08:50)
[2021-09-18] MEDS: VANCOMYCIN INJ 1 GM in SODIUM CHLORIDE 0.9% 250 ML IV SCH ×2 (09:31→21:29)
--- NOTE | 2021-09-18 11:12 | PROVIDER PROGRESS NOTE ---
Assessment/Plan - Problem List (1) Sepsis Assessment/Plan: 09/18 improved/resolved. WBC is at normal arrange, Blood culture is negative for bacteremia. pt has no fever. lactic acid is down to normal arrange. continue antibiotics, we will have wound care consultation and dressing change for pt, I will followup with wound care. Improving, WBC improved from 17.9 to 12, then down to normal arrange. Blood culture is negative for bacteremia. pt has no fever. lactic acid is down to normal arrange. Continue Vancomycin and rocephin (2) Cellulitis pt report her left lower extremity cellulitis started more than one month ago, then developed ulcer with drainage. now pt is on the dressing. Blood culture is negative for bacteremia. pt take steroid at home for her hepatic failure, and with hepatic failure. pt is at immunocompromised status. we ordered wound care, and wound care consultation with MAC ID continue Continue Vancomycin and rocephin (3) Cirrhosis of liver with ascites 09/18 extensive discussed with pt and pt's at the bedside for pt's medical conditions and care plan, and high Meld score, and high mortality rate at this point. pt and pt's both clearly state they do not need paracentesis, and pt tolerated her ascites at current status, pt feel comfortable and she has no respiratory distress, pt may followup with her PCP, and GI, and palliative care as well. order one more albumin IV for pt's hypoalbuminemia. hold pt's home steroid, pt is treated for her cellulitis infection, pt is at immunocompromised status, and pt slight worsen hyponatremia, and pt has fluid collection as ascites. 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 her Meld score has 27 with 20% Estimated 3-month mortality. 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 Today pt is comfortable, alert and oriented without respiratory distress. pt's ING is 2.3 on today. pt is not urgent to need paracentesis now. today pt had 54.8 ammonia level. will continue patient's spironolactone, Lasix and lactulose. pt has lower albumin, order IV of albumin, resume home steroid Prednisone. (4)alcoholic hepatic failure pt present elevated liver with hx of alcoholic hepatic liver failure with cirrhosis and ascites who continues to decompensate despite not drinking since August 21. her Meld score has 27 with 20% Estimated 3-month mortality. strongly advise pt avoid alcohol. pt had 54.8 ammonia level, continue lactulose. 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 But her ammonia level is slight elevated, continue lactulose, and lab monitor. improved. pt has no confused on today, she report her medical hx and report her last alcohol drinking is August 21. today pt had 54.8 ammonia level. resume home lactulose. (6)hyponatremia 09/18 pt's Na is 128, slight worsen from yesterday 131. it is likely secondary to pt's alcoholic hepatic failure with ascites. hold steroid on today, continue diuretics and lab monitor (7)elevated ammonia level 09/18 slight elevated ammonia 61 compared 55 on yesterday. pt is alert and oriented on today, continue Lactulose and lab monitor (8)hypercoagulopathy 09/18 INR is 1.9 on today, slight improved, secondary to pt's alcoholic hepatic failure. pt reported she does not need paracentesis, hold blood thinner and continue lab monitor and vital monitor. - Current Meds Current Meds: Current Medications Generic Name Dose Route Start Last Admin Trade Name Freq PRN Reason Stop Dose Admin Acetaminophen 650 mg 09/15/21 19:04 09/18/21 08:50 Acetaminophen 325 Mg Tablet PO 650 mg Q4HR PRN Administration Pain 1 to 4, or Fever Alcohol 1 amp 09/17/21 21:00 09/18/21 08:40 Ethyl Alcohol 62% Swab Ampule ANAHI 1 amp BID JESUS Administration Bacitracin 1 packet 09/15/21 22:21 09/15/21 22:43 Bacitracin Zinc Oint 1 Packet TOP 1 packet PRN PRN Administration Skin Care Furosemide 20 mg 09/17/21 09:00 09/18/21 08:40 Furosemide 20 Mg Tablet PO 20 mg DAILY JESUS Administration Ceftriaxone Sodium 1 gm/ 100 mls @ 200 mls/hr 09/16/21 09:00 09/18/21 09:19 Sodium Chloride IV Infused DAILY JESUS Infusion Vancomycin HCl 1 gm/ Sodium 250 mls @ 167 mls/hr 09/15/21 20:00 09/18/21 09:31 Chloride IV 167 mls/hr Q12H JESUS Administration Lactulose 10 gm 05/23/22 22:00 09/18/21 08:41 Lactulose 10 Gm /15 Ml Udc PO 10 gm BID JESUS Administration Magnesium Oxide 400 mg 09/16/21 22:00 09/18/21 08:40 Magnesium Oxide 400 Mg Tablet PO 400 mg BID JESUS Administration Multivitamins 1 tab 09/17/21 09:00 09/18/21 08:40 Multivitamin Tablet PO 1 tab DAILY JESUS Administration Ondansetron HCl 4 mg 09/15/21 19:04 09/17/21 17:58 Ondansetron 4 Mg/2 Ml Vial IVP 4 mg Q6HR PRN Administration Nausea / Vomiting Oxycodone HCl 5 mg 09/16/21 21:15 09/17/21 06:47 Oxycodone 5 Mg Tablet PO 5 mg Q4H PRN Administration PAIN Pantoprazole Sodium 40 mg 09/16/21 07:00 09/18/21 05:46 Pantoprazole 40 Mg Tablet PO 40 mg QDAC JESUS Administration Polyethylene Glycol 17 gm 09/16/21 09:00 09/18/21 08:40 Polyethylene Glycol 3350 17 Gm Packet PO Not Given DAILY JESUS Ropinirole HCl 0.25 mg 09/16/21 22:07 09/17/21 20:18 Ropinirole 0.25 Mg Tablet PO 0.25 mg QPM JESUS Administration Sodium Chloride 10 ml 09/16/21 01:00 09/18/21 08:36 Sodium Chloride Flush 0.9% 10 Ml Syringe IVP 10 ml 0100,0900,1700 JESUS Administration Spironolactone 100 mg 09/17/21 09:00 09/18/21 08:40 Spironolactone 25 Mg Tablet PO 100 mg DAILY JESUS Administration Thiamine HCl 100 mg 09/17/21 09:00 09/18/21 08:40 Thiamine 100 Mg Tablet PO 100 mg DAILY JESUS Administration - Lab Result Fish Bone Diagrams: 09/18/21 05:39 09/18/21 05:39 - Additional Planning My Orders: My Active Orders 09/17/21 10:30 Wound Care - MAC [RC] .ONCE 09/19/21 05:00 AMMONIA [CHEM] DAILYLAB MAGNESIUM [CHEM] DAILYLAB 09/20/21 05:00 AMMONIA [CHEM] DAILYLAB MAGNESIUM [CHEM] DAILYLAB 09/21/21 05:00 AMMONIA [CHEM] DAILYLAB Subjective - Subjective Patient Reports: Resting Comfortably Objective Vital Signs: Vital Signs - 24 hr 09/17/21 09/17/21 09/17/21 12:12 15:58 20:00 Temperature 36.2 C L Heart Rate [ Brachial] Heart Rate [ 106 H 103 H 105 H Monitoring electrodes] Respiratory 18 17 18 Rate Blood Pressure 113/64 143/77 H 159/80 H [Right Brachial artery] O2 Saturation 94 98 96 09/17/21 09/18/21 09/18/21 23:44 06:07 08:01 Temperature 36.7 C 36.4 C L 36.9 C Heart Rate [ 105 H 113 H 112 H Brachial] Heart Rate [ Monitoring electrodes] Respiratory 18 20 20 Rate Blood Pressure 117/61 153/82 H 124/77 [Right Brachial artery] O2 Saturation 93 94 96 Oxygen O2 Source Room air I&O (Last 24 Hrs): Intake and Output Totals x24h 09/16/21 09/17/21 09/18/21 23:59 23:59 23:59 Intake Total 3338.50 2190 220 Output Total 560 Balance 2778.50 2190 220 General: Alert, Oriented x3, Cooperative, No acute distress HEENT: Atraumatic Neck: Supple Lymphatic: no adenopathy Neuro: Alert, Non Focal, Oriented Times 3 Cardiovascular: Regular rate, Normal S1, Normal S2 Respiratory: Chest non-tender, No respiratory distress Abdomen: Normal bowel sounds, Soft Extremities: Normal pulses, Other (pt has wound dressing at her left lower extremity. we will assess pt when pt had wound care consultation and dressing change.) - Results Results: Laboratory Results WBC 9.6 x10^3/uL (4.8-10.8) 09/18/21 05:39 RBC 3.13 10^6/uL (4.20-5.40) L 09/18/21 05:39 Hgb 10.0 g/dL (12.0-16.0) L 09/18/21 05:39 Hct 29.4 % (37.0-47.0) L 09/18/21 05:39 MCV 93.9 fL (81.0-99.0) 09/18/21 05:39 MCH 31.9 pg (27.0-31.0) H 09/18/21 05:39 MCHC 34.0 g/dL (32.0-36.0) 09/18/21 05:39 RDW 18.5 % (12.0-15.0) H 09/18/21 05:39 Plt Count 141 10^3/uL (130-450) 09/18/21 05:39 MPV 9.7 fL (7.9-10.8) 09/18/21 05:39 Neut # (Auto) 8.3 10^3/uL (1.5-6.6) H 09/18/21 05:39 Lymph # (Auto) 0.7 10^3/uL (1.5-3.5) L 09/18/21 05:39 [place] # (Auto) 0.5 10^3/uL (0.0-1.0) 09/18/21 05:39 Eos # (Auto) 0.0 10^3/uL (0.0-0.7) 09/18/21 05:39 Baso # (Auto) 0.0 10^3/uL (0.0-0.1) 09/18/21 05:39 Absolute Nucleated RBC 0.00 x10^3/uL 09/18/21 05:39 Nucleated RBC % 0.0 /100WBC 09/18/21 05:39 PT 21.6 secs (9.9-12.6) H 09/18/21 05:39 INR (Fingerstick) 1.6 (0.8-1.2) H 09/15/21 16:20 INR 1.9 (0.8-1.2) H 09/18/21 05:39 Sodium 128 mmol/L (135-145) L 09/18/21 05:39 Potassium 4.0 mmol/L (3.5-5.0) 09/18/21 05:39 Chloride 98 mmol/L (101-111) L 09/18/21 05:39 Carbon Dioxide 20 mmol/L (21-32) L 09/18/21 05:39 Anion Gap 10.0 (6-13) 09/18/21 05:39 BUN 16 mg/dL (6-20) 09/18/21 05:39 Creatinine 0.9 mg/dL (0.4-1.0) 09/18/21 05:39 Estimated GFR (MDRD) 62 (>89) L 09/18/21 05:39 Glucose 156 mg/dL (70-100) H 09/18/21 05:39 Lactic Acid 2.2 mmol/L (0.5-2.2) 09/16/21 07:03 Calcium 8.5 mg/dL (8.5-10.3) 09/18/21 05:39 Magnesium 1.8 mg/dL (1.7-2.8) 09/18/21 05:39 Total Bilirubin 8.8 mg/dL (0.2-1.0) H 09/17/21 05:31 AST 70 IU/L (10-42) H 09/17/21 05:31 ALT 61 IU/L (10-60) H 09/17/21 05:31 Alkaline Phosphatase 116 IU/L (42-121) 09/17/21 05:31 Ammonia 60.6 umol/L (7-35) H 09/18/21 05:39 Total Protein 5.6 g/dL (6.7-8.2) L 09/17/21 05:31 Albumin 2.2 g/dL (3.2-5.5) L 09/17/21 05:31 Globulin 3.4 g/dL (2.1-4.2) 09/17/21 05:31 Albumin/Globulin Ratio 0.6 (1.0-2.2) L 09/17/21 05:31 Lipase 150 U/L (22-51) H 09/15/21 15:34 Urine Color DARK YELLOW 09/15/21 16:25 Urine Clarity CLEAR (CLEAR) 09/15/21 16:25 Urine pH 6.5 PH (5.0-7.5) 09/15/21 16:25 Ur Specific [place] 1.015 (1.002-1.030) 09/15/21 16:25 Urine Protein NEGATIVE mg/dL (NEGATIVE) 09/15/21 16:25 Urine Glucose (UA) NEGATIVE mg/dL (NEGATIVE) 09/15/21 16:25 Urine Ketones NEGATIVE mg/dL (NEGATIVE) 09/15/21 16:25 Urine Occult Blood NEGATIVE (NEGATIVE) 09/15/21 16:25 Urine Nitrite NEGATIVE (NEGATIVE) 09/15/21 16:25 Urine Bilirubin SMALL (NEGATIVE) H 09/15/21 16:25 Urine Urobilinogen 4 E.U./dL (NORMAL) H 09/15/21 16:25 Ur Leukocyte Esterase TRACE (NEGATIVE) H 09/15/21 16:25 Urine RBC 0-5 /HPF (0-5) 09/15/21 16:25 Urine WBC 6-10 /HPF (0-5) H 09/15/21 16:25 Urine WBC Clumps PRESENT 09/15/21 16:25 Ur Epithelial Cells FEW Transitional /HPF (<= Few) 09/15/21 16:25 Ur Squamous Epith Cells NONE SEEN (<= Few) 09/15/21 16:25 Urine Bacteria Few /HPF (None Seen) 09/15/21 16:25 Ur Microscopic Review INDICATED 09/15/21 16:25 Urine Culture Comments INDICATED 09/15/21 16:25 Nasal Adenovirus (PCR) NOT DETECTED 09/15/21 18:15 Nasal B. parapertussis DNA (PCR) NOT DETECTED 09/15/21 18:15 Nasal Coronavir 229E PCR NOT DETECTED 09/15/21 18:15 Nasal Coronavir HKU1 PCR NOT DETECTED 09/15/21 18:15 Nasal Coronavir NL63 PCR NOT DETECTED 09/15/21 18:15 Nasal Coronavir OC43 PCR NOT DETECTED 09/15/21 18:15 Nasal Enterovir/Rhinovir PCR NOT DETECTED 09/15/21 18:15 Nasal Influenza B PCR NOT DETECTED 09/15/21 18:15 Nasal Influenza A PCR NOT DETECTED 09/15/21 18:15 Nasal Parainfluen 1 PCR NOT DETECTED 09/15/21 18:15 Nasal Parainfluen 2 PCR NOT DETECTED 09/15/21 18:15 Nasal Parainfluen 3 PCR NOT DETECTED 09/15/21 18:15 Nasal Parainfluen 4 PCR NOT DETECTED 09/15/21 18:15 Nasal RSV (PCR) NOT DETECTED 09/15/21 18:15 Nasal Screen MRSA (PCR) POSITIVE (NEGATIVE) A* 09/15/21 20:25 Nasal B.pertussis DNA PCR NOT DETECTED 09/15/21 18:15 Nasal C.pneumoniae (PCR) NOT DETECTED 09/15/21 18:15 Anahi Human Metapneumo PCR NOT DETECTED 09/15/21 18:15 Nasal M.pneumoniae (PCR) NOT DETECTED 09/15/21 18:15 Nasal SARS-CoV-2 (PCR) NOT DETECTED 09/15/21 18:15 Last Dose Date UNK 09/17/21 08:07 Last Dose Time UNK 09/17/21 08:07 Vancomycin Trough 17.3 ug/mL (10.0-20.0) 09/17/21 08:07 - Procedures Procedures: Procedures EXCISION OF ASCENDING COLON, ENDO, DIAGN (03/15/21) REPLACEMENT OF LEFT LENS WITH SYNTH SUB, PERC APPROACH (04/08/18) ABX Reporting Has patient been on IV antibiotics over the past 48 hours?: Yes Current Medications - Current Medications Current Medications: Active Medications Acetaminophen (Acetaminophen 325 Mg Tablet) 650 mg PO Q4HR PRN PRN Reason: Pain 1 to 4, or Fever Last Admin: 09/18/21 08:50 Dose: 650 mg Alcohol (Ethyl Alcohol 62% Swab Ampule) 1 amp ANAHI BID [facility] Last Admin: 09/18/21 08:40 Dose: 1 amp Bacitracin (Bacitracin Zinc Oint 1 Packet) 1 packet TOP PRN PRN PRN Reason: Skin Care Last Admin: 09/15/21 22:43 Dose: 1 packet Furosemide (Furosemide 20 Mg Tablet) 20 mg PO DAILY [facility] Last Admin: 09/18/21 08:40 Dose: 20 mg Ceftriaxone Sodium 1 gm/ (Sodium Chloride) 100 mls @ 200 mls/hr IV DAILY [facility] Last Infusion: 09/18/21 09:19 Dose: Infused Vancomycin HCl 1 gm/ Sodium (Chloride) 250 mls @ 167 mls/hr IV Q12H [facility] Last Infusion: 09/18/21 11:14 Dose: Infused Lactulose (Lactulose 10 Gm /15 Ml Udc) 10 gm PO BID [facility] Last Admin: 09/18/21 08:41 Dose: 10 gm Magnesium Oxide (Magnesium Oxide 400 Mg Tablet) 400 mg PO BID [facility] Last Admin: 09/18/21 08:40 Dose: 400 mg Mineral Oil (Min Oil/Dimethicon/Coconut Oil 92 Gm Tube) 1 applic TOP PRN PRN PRN Reason: Skin Care Multivitamins (Multivitamin Tablet) 1 tab PO DAILY [facility] Last Admin: 09/18/21 08:40 Dose: 1 tab Ondansetron HCl (Ondansetron 4 Mg/2 Ml Vial) 4 mg IVP Q6HR PRN PRN Reason: Nausea / Vomiting Last Admin: 09/17/21 17:58 Dose: 4 mg Oxycodone HCl (Oxycodone 5 Mg Tablet) 5 mg PO Q4H PRN PRN Reason: PAIN Last Admin: 09/17/21 06:47 Dose: 5 mg Pantoprazole Sodium (Pantoprazole 40 Mg Tablet) 40 mg PO QDAC [facility] Last Admin: 09/18/21 05:46 Dose: 40 mg Polyethylene Glycol (Polyethylene Glycol 3350 17 Gm Packet) 17 gm PO DAILY [facility] Last Admin: 09/18/21 08:40 Dose: Not Given Ropinirole HCl (Ropinirole 0.25 Mg Tablet) 0.25 mg PO QPM [facility] Last Admin: 09/17/21 20:18 Dose: 0.25 mg Sodium Chloride (Sodium Chloride Flush 0.9% 10 Ml Syringe) 10 ml IVP PRN PRN PRN Reason: NEEDED PER PROVIDER ORDERS Sodium Chloride (Sodium Chloride Flush 0.9% 10 Ml Syringe) 10 ml IVP 0100,0900,1700 [facility] Last Admin: 09/18/21 08:36 Dose: 10 ml Spironolactone (Spironolactone 25 Mg Tablet) 100 mg PO DAILY [facility] Last Admin: 09/18/21 08:40 Dose: 100 mg Thiamine HCl (Thiamine 100 Mg Tablet) 100 mg PO DAILY [facility] Last Admin: 09/18/21 08:40 Dose: 100 mg Lactulose 15 ml PO BID 09/16/21 Multivitamin 1 tab PO DAILY 09/16/21 Ondansetron Odt [Zofran] 4 mg TL Q8H PRN 09/16/21 Pantoprazole [Protonix] 40 mg PO QDAC 09/16/21 Spironolactone [Aldactone] 100 mg PO DAILY 09/16/21 Thiamine [Vitamin B-1] 100 mg PO DAILY 09/16/21 oxyCODONE [Roxicodone] 5 mg PO Q4H PRN 09/16/21 predniSONE [Deltasone] 10 - 30 mg PO DAILY 09/16/21 predniSONE [Deltasone] 40 mg PO DAILY 09/16/21
--- NOTE | 2021-09-18 15:09 | WOUND CARE CONSULTATION ---
Referring Provider Consult Date: 09/18/21 History of Present Illness - History Obtained From Records Reviewed: [facility] History obtained from: Patient Exam Limitations: None - History of Present Illness HPI: 66-year-old female who is currently inpatient with diagnosis of sepsis, cellulitis, and cirrhosis of the liver with ascites, presents [facility] for evaluation and treatment of multiple wounds to her left lower leg. Patient is unclear on how or when the wounds occurred, but feels it is due to a sudden onset of swelling. She reports swelling to bilateral lower extremities over the past month or so and recently started on lasix. According to the patient, she has noticed a significant decrease in the swelling. She was visited by the wound care team and a xeroform dressing was applied. She, otherwise has been leaving the wounds open to air. She is currently on rocephin and vancomycin while hospitalized and is anticipating discharge today or tomorrow. No history of diabetes, no smoking. Reports quitting alcohol on 08/18/2021 when she was diagnosed with cirrhosis. History - Past Medical History Cardiovascular: reports: Hypertension, Pulmonary embolism Respiratory: reports: None Neuro: reports: Peripheral neuropathy Endocrine/Autoimmune: reports: Other GI: reports: GERD : reports: None HEENT: reports: Other Psych: reports: None Musculoskeletal: reports: Chronic back pain Derm: reports: None MRSA Hx?: No - Past Surgical History Ortho: reports: Spine surgery, Other /[employer]: reports: Tubal ligation, Other HEENT: reports: Cataracts Other past surgical history: 2 ectopic - Family & Social History Family History Comment/Other: Patient's mother from a motor vehicle accident. Patient's father from an accident where a tree fell on him. Her brother from heart disease. It is unclear what her sister from. Social History Notes: She lives at home with her . She quit drinking alcohol on 08/18/2021 after she was diagnosed with liver cirrhosis. She denies tobacco or recreational substance use. - POLST Patient has POLST: No POLST Status: Full Code Review of Systems - Constitutional Constitutional: denies: Fatigue, Fever, Chills - Cardiovascular Cariovascular: reports: Edema Objective General: Alert, Oriented x3, Cooperative, No acute distress - Wound Assessment Wound assessment: Wound #1: Left heel: The wound is full thickness. The wound bed is 100 % eschar prior to debridement and presents as an open fissure. The wound edges are attached. No undermining, no tunneling. The periwound is callused. There is mild. No odor. No edema. The patient reports pain. Normal sensation. No s/s infection. Wound #2: Left 5th met head The wound is full thickness, possible pressure related. The wound bed is 100 % eschar prior to debridement . The wound edges are attached. No undermining, no tunneling. The periwound is erythematous. There is mild. No odor. No edema. The patient reports pain. Cap refill wnl. Normal sensation. No s/s infection. Satellite lesion weeping. Wound #3: Left lower lateral leg: The wound is full thickness. The wound bed is 100 % slough prior to debridement. The wound edges are attached. No undermining, no tunneling. The periwound is callused. There is mild. No odor. No edema. The patient reports pain. Normal sensation. No s/s infection. Wound #4: Left medial foot The wound is full thickness. The wound bed is 100 % slough prior to debridement. The wound edges are attached. No undermining, no tunneling. The periwound is callused. There is mild. No odor. No edema. The patient reports pain. Normal sensation. No s/s infection. Left lower leg 3+pitting edema Left: Pulses DP/PT Not palpable due to edema, audible via Doppler and are biphasic. Procedure - Procedure Note Wound #1: Left heel: Pre: 1.6 x 0.4 x 0.2 Post: 1.4 x 0.4 x 0.2 Total area debrided: 0.56 sq cm After informed consent, the wound and periwound were cleansed, then 5% topical lidocaine was applied for local anesthesia. Using a 3 mm curette, the wound was sharply debrided of non-viable and subcutaneous tissue down to viable bleeding subcutaneous tissue. Skin edges were freshened in a similar fashion. Hemostasis was achieved with pressure and time. A new dressing consisting of a hydrofera blue with antimicrobial properties was applied. Patient tolerated the procedure well without apparent complications. Appropriate follow up instructions were given. Wound #2: Left 5th met head Pre: 0.6 x 0.7 x 0.1 Post: 0.6 x 0.8 x 0.2 Total area debrided: 0.48 sq cm After informed consent, the wound and periwound were cleansed, then 5% topical lidocaine was applied for local anesthesia. Using a 3 mm curette, the wound was sharply debrided of non-viable and subcutaneous tissue down to viable bleeding subcutaneous tissue. Skin edges were freshened in a similar fashion. Hemostasis was achieved with pressure and time. A new dressing consisting of a hydrofera blue with antimicrobial properties was applied. Patient tolerated the procedure well without apparent complications. Appropriate follow up instructio ns were given. Wound #3: Left lower lateral leg: Pre: 0.9 x 1.7 x 0.1 Post: 1.2 x 1.9 x 0.1 Total area debrided: 2.28 sq cm After informed consent, the wound and periwound were cleansed, then 5% topical lidocaine was applied for local anesthesia. Using a 3 mm curette, the wound was sharply debrided of non-viable and subcutaneous tissue down to viable bleeding subcutaneous tissue. Skin edges were freshened in a similar fashion. Hemostasis was achieved with pressure and time. A new dressing consisting of a hydrofera blue with antimicrobial properties was applied. Patient tolerated the procedure well without apparent complications. Appropriate follow up instructions were given. Wound #4: Left medial foot Pre: 1.6 x 0.6 x 0.2 Post: 1.4 x 0.6 x 0.3 Total area debrided: 0.84 sq cm After informed consent, the wound and periwound were cleansed, then 5% topical lidocaine was applied for local anesthesia. Using a 3 mm curette, the wound was sharply debrided of non-viable and subcutaneous tissue down to viable bleeding subcutaneous tissue. Skin edges were freshened in a similar fashion. Hemostasis was achieved with pressure and time. A new dressing consisting of a hydrofera blue with antimicrobial properties was applied. Patient tolerated the procedure well without apparent complications. Appropriate follow up instructions were given. Grand total area debrided: 4.16 sq cm Conclusion and Plan - Problem List (1) Non-pressure ulcer of lower extremity Qualifiers: Laterality: unspecified laterality Non-pressure ulcer stage: with fat layer exposed Qualified Code(s): L97.902 - Non-pressure chronic ulcer of unspecified part of unspecified lower leg with fat layer exposed Assessment/Plan: Multiple wounds to left lower extremity. No s/s infection. Plan of care: Wound hygiene with sharp debridement on non-viable tissue and antimicrobial solution. Dressings with hydrofera blue, optilock super absorbent pad to wounds #2,3,and 4. Dressing to wound #1 with hydrofera blue and a duoderm. An unnaboot was then applied to the left lower legs. Patient encouraged to keep wrap dry and intact and RTC in 6 days. (2) Cellulitis Qualifiers: Site of cellulitis: extremity Site of cellulitis of extremity: lower extremity Laterality: left Qualified Code(s): L03.116 - Cellulitis of left lower limb Assessment/Plan: Clinically improving. Plan of care: Continue antibiotic therapy as prescribed by hospitalist. (3) Edema Qualifiers: Edema type: generalized Qualified Code(s): R60.1 - Generalized edema Assessment/Plan: BLE Left greater than right with weeping. Plan of care: Patient to continue lasix and spironolactone as prescribed. Elevate LE's whenever possible. Compression as above. (4) Peripheral neuropathy Qualifiers: Peripheral neuropathy type: polyneuropathy, unspecified Qualified Code(s): G62.9 - Polyneuropathy, unspecified Assessment/Plan: Likely due to alcoholism. Plan of care: Encouraged patient to inspect feet and shoes daily and avoid walking barefoot. - Results Lab Results: Laboratory Results Sodium 128 mmol/L (135-145) L 09/18/21 05:39 Potassium 4.0 mmol/L (3.5-5.0) 09/18/21 05:39 Chloride 98 mmol/L (101-111) L 09/18/21 05:39 Carbon Dioxide 20 mmol/L (21-32) L 09/18/21 05:39 Anion Gap 10.0 (6-13) 09/18/21 05:39 BUN 16 mg/dL (6-20) 09/18/21 05:39 Creatinine 0.9 mg/dL (0.4-1.0) 09/18/21 05:39 Glucose 156 mg/dL (70-100) H 09/18/21 05:39 Calcium 8.5 mg/dL (8.5-10.3) 09/18/21 05:39 Total Bilirubin 8.8 mg/dL (0.2-1.0) H 09/17/21 05:31 AST 70 IU/L (10-42) H 09/17/21 05:31 ALT 61 IU/L (10-60) H 09/17/21 05:31 Alkaline Phosphatase 116 IU/L (42-121) 09/17/21 05:31 Total Protein 5.6 g/dL (6.7-8.2) L 09/17/21 05:31 Albumin 2.2 g/dL (3.2-5.5) L 09/17/21 05:31 Globulin 3.4 g/dL (2.1-4.2) 09/17/21 05:31 Albumin/Globulin Ratio 0.6 (1.0-2.2) L 09/17/21 05:31 09/15/21 15:26 Blood - Right Arm Blood Culture - Preliminary NO GROWTH AFTER 2 DAYS 09/15/21 15:34 Blood - Left Arm Blood Culture - Preliminary NO GROWTH AFTER 2 DAYS 09/15/21 16:25 Urine,Catheterized Urine Culture - Final No growth - Home Meds/Allergies Allergies prednisone Allergy (Verified 09/15/21 15:11) Hallucinations Penicillins Adverse Reaction (Verified 09/15/21 15:11) Hives Sulfa (Sulfonamide Antibiotics) Adverse Reaction (Verified 09/15/21 15:11) Hives Home Medications Lactulose 15 ml PO BID 09/16/21 [History Confirmed 09/16/21] Multivitamin 1 tab PO DAILY 09/16/21 [History Confirmed 09/16/21] Ondansetron Odt [Zofran] 4 mg TL Q8H PRN 09/16/21 [History Confirmed 09/16/21] Pantoprazole [Protonix] 40 mg PO QDAC 09/16/21 [History Confirmed 09/16/21] Spironolactone [Aldactone] 100 mg PO DAILY 09/16/21 [History Confirmed 09/16/21] Thiamine [Vitamin B-1] 100 mg PO DAILY 09/16/21 [History Confirmed 09/16/21] oxyCODONE [Roxicodone] 5 mg PO Q4H PRN 09/16/21 [History Confirmed 09/16/21] predniSONE [Deltasone] 10 - 30 mg PO DAILY 09/16/21 [History Confirmed 09/16/21] predniSONE [Deltasone] 40 mg PO DAILY 09/16/21 [History Confirmed 09/16/21] - Plan Condition/Complexity: Stable Plan Discussed with: Patient, Spouse (Jorge)
[2021-09-18] MEDS: rOPINIRole 0.25 MG TABLET PO SCH (21:33)
[2021-09-19] MEDS: ACETAMINOPHEN 325 MG TABLET PO PRN (02:43)
[2021-09-19] MEDS: PANTOPRAZOLE 40 MG TABLET PO SCH (05:12)
[2021-09-19 05:34] LABS: BASOPHILS % (AUTO) 0.1 %; CALCIUM 8.3 mg/dL (8.5-10.3); CREATININE 0.8 mg/dL (0.4-1.0); EOSINOPHILS # (AUTO) 0.3 10^3/uL (0.0-0.7); EOSINOPHILS % (AUTO) 2.5 %; HCT - HEMATOCRIT 28.9 % (37.0-47.0); HGB - HEMOGLOBIN 9.9 g/dL (12.0-16.0); LYMPHOCYTES # (AUTO) 1.2 10^3/uL (1.5-3.5); LYMPHOCYTES % (AUTO) 10.8 %; MEAN CORPUSCULAR HEMOGLOBIN 32.5 pg (27.0-31.0); MEAN CORPUSCULAR HGB CONC 34.3 g/dL (32.0-36.0); MEAN CORPUSCULAR VOLUME 94.8 fL (81.0-99.0); MEAN PLATELET VOLUME 9.5 fL (7.9-10.8); MONOCYTES # (AUTO) 0.7 10^3/uL (0.0-1.0); MONOCYTES % (AUTO) 6.5 %; NEUTROPHILS # (AUTO) 8.8 10^3/uL (1.5-6.6); NEUTROPHILS % (AUTO) 79.6 %; PLT - PLATELET COUNT 136 10^3/uL (130-450); POTASSIUM 3.6 mmol/L (3.5-5.0); RED BLOOD COUNT 3.05 10^6/uL (4.20-5.40); WHITE BLOOD COUNT 11.1 x10^3/uL (4.8-10.8)
[2021-09-19 05:35] LABS: INR 2.1 (0.8-1.2); PT - PROTHROMBIN TIME 22.8 secs (9.9-12.6)
[2021-09-19] MEDS ORDERED: LACTULOSE 10 GM /15 ML UDC PO SCH ×2 (07:35→14:00)
[2021-09-19] MEDS: SODIUM CHLORIDE FLUSH 0.9% 10 ML SYRINGE IVP SCH (08:42)
[2021-09-19] MEDS: cefTRIAXone 1 GM in SODIUM CHLORIDE 0.9% MINIBAG 100 ML IV SCH (08:45)
[2021-09-19] MEDS: SPIRONOLACTONE 25 MG TABLET PO SCH (08:45)
[2021-09-19] MEDS: THIAMINE 100 MG TABLET PO SCH (08:46)
[2021-09-19] MEDS: polyethylene glycoL 3350 17 GM PACKET PO SCH (08:46)
[2021-09-19] MEDS: MULTIVITAMIN TABLET PO SCH (08:46)
[2021-09-19] MEDS: FUROSEMIDE 20 MG TABLET PO SCH (08:46)
[2021-09-19] MEDS: MAGNESIUM OXIDE 400 MG TABLET PO SCH (08:46)
[2021-09-19] MEDS: ethyl alcohoL 62% SWAB AMPULE NAS SCH (08:46)
[2021-09-19] MEDS: LACTULOSE 10 GM /15 ML UDC PO SCH ×2 (08:58→14:44)
[2021-09-19] MEDS: VANCOMYCIN INJ 1 GM in SODIUM CHLORIDE 0.9% 250 ML IV SCH (09:42)
--- NOTE | 2021-09-19 11:13 | XRAY Report ---
PROCEDURE: Chest 1 View X-Ray INDICATIONS: SOB TECHNIQUE: One view of the chest was acquired. COMPARISON: Chest x-ray, one view, 09/15/2021, 08/26/2021. FINDINGS: Surgical changes and devices: None. Lungs and pleura: There is a small left pleural effusion, unchanged. There is left basilar consolida tion or atelectasis. There is linear density in the right lung base, probably atelectasis. No pneumot horax. Mediastinum: Mediastinal contours appear normal. Heart size is normal. Bones and chest wall: No suspicious bony lesions. Overlying soft tissues appear unremarkable. IMPRESSION: 1. Stable small left pleural effusion with left basilar consolidation or atelectasis. 2. Linear density in the right lung base is most likely atelectasis. Reviewed by: Mae Garcia MD on 09/19/2021 11:11 AM PDT Approved by: Mae Garcia MD on 09/19/2021 11:11 AM PDT Station ID: [id number]
--- NOTE | 2021-09-19 12:13 | Discharge Plan ---
Discharge Plan Problem Reviewed?: Yes Disposition: Home, Self Care Condition: Poor Prescriptions: cefUROXime axetiL [Ceftin] 500 mg PO Q12H #40 tablet Lactulose 15 ml PO TID #600 ml rOPINIRole [Requip] 0.25 mg PO QPM #30 tablet Diet: Regular Activity Restrictions: Activity as Tolerated Shower Restrictions: No (fall precaution) Instruction Topics: Lactulose oral solution, Ropinirole tablets, Cefuroxime tablets, Ammonia, Infec Wound Recognize Tx, ED Ascites Health Concerns: cellulitis/non-pressure ulcer, elevated ammonia, ascites/alcoholic liver failure, restless leg Plan of Treatment: You really urgent want to go home on today. You had wound care on yesterday, please followup the wound care appointment on next Thursday at [facility]. You are prescribed antibiotics Ceftin. Please followup with your PCP in one week to help your management of your wound care as well. You are alert and oriented plus 4 on today. Your ammonia level is elevated. Your home Lactulose dosage is increased. You have ascites and you have no respiratory distress and you feel comfortable. You may continue followup with GI to manage your cirrhosis and ascites. You may resume your home meds Lasix and spironolactone. Your home Steroid is holding now, you have cellulitis/ulcer infection. You may discuss with your PCP for palliative care as well. You are prescribed Requip for your restless leg. Care Goals: Stabilization and improvement of your medical conditions Assessment: Discussed the care plan with you and your at the bedside, answered your questions, you understood Additional Instructions or Follow Up instructions: You may follow-up with your PCP in 1 week, you may follow-up with your GI/healthcare liaison physician as outpatient. You may follow-up with [facility] wound care in the next week Thursday. Should your symptoms return or worsen, you may present to the ER or call 911 for help No Smoking: If you smoke, Please STOP! Call for help.
--- NOTE | 2021-09-19 12:31 | DISCHARGE SUMMARY ---
Discharge Summary Admit Date: 09/15/21 Discharge Date: 09/19/21 Discharging Provider: Arvin Angulo Primary Care Provider: Dr. Satinder Aguilar Condition at Discharge: Poor Discharge Disposition: 01 Home, Self Care Discharge Facility Name: home - DIAGNOSES Discharge Diagnoses with Status of Each Condition: (1) Sepsis pt is alert and oriented plus 4. improved/resolved. pt has no fever, blood culture is negative For bacteremia, Lactic acid became normal range, WBC is reduced at 11.1. pt had I/D for her left leg ulcer on yesterday, WBC is likely slight reactive. pt is Hemodynamic stable except her chronic sinus tachycardia. Patient had a wound care consultation and treatment at her left lower extremity on yesterday. Patient may follow up With wound care at [facility] clinic on next Thursday. Patient has prescript of antibiotics for continuing the treatment course. pt and her really want to be d/c to home on today. her stated she will do fine at home and declined to stay at hospital for further treatment. nurse Maier was at the bedside for witness. (2)non-pressure ulcer at left lower extremity pt has four non Pressure ulcers at left lower extremity. Patient had a wound care consultation and treatment at her left lower extremity on yesterday. Patient may follow up With wound care at [facility] clinic on next Thursday. her wound dressing can keep for 6 days until next Thursday Per [facility] wound care provider. Patient has prescript of antibiotics for continuing the treatment course. (3) Cellulitis improved. swelling and erythema are significantly reduced. pt is prescribed antibiotics for the treatment course. Blood culture is negative for bacteremia. Hold pt's home steroid meds which was likely contributed to pt's infection with hx of immunocompromised status, and fluid overloaded and hyonatremia. (4) Cirrhosis of liver with ascites pt has no respiratory distress and she report she feel comfortable. Extensive discussion with pt and pt's at the bedside for pt's medical conditions and care plan. pt had high Meld score with high mortality rate at this point. pt and pt's both clearly state they do not need paracentesis, and pt tolerated her ascites at current status. pt had albumin IV for pt's hypoalbuminemia. pt may followup with her PCP, and GI, and palliative care as well. (5)alcoholic hepatic failure pt present mild elevated liver enzyme but significantly elevated bili level with hx of alcoholic hepatic liver failure with cirrhosis and ascites who continues to decompensate despite not drinking alcohol since August 18. her Meld score reveals 28 with 20% Estimated 3-month mortality. strongly advise pt continue to avoid alcohol. pt had elevated ammonia level. pt's home lactulose dosage is increased to tid 15ml lactulose. pt has lower albumin, order IV of albumin at hospital. pt may followup with her GI/metal stud framer closely to manage her hepatic failure. (6) hepatic Encephalopathy pt is alert and oriented plus 4. pt's ammonia level was slightly increased. pt's home Lactulose dosage was increased. (7)hyponatremia pt's Na is 128, it is likely secondary to pt's alcoholic hepatic failure with ascites. hold steroid, follow up with her PCP and GI doctor continue manage. (8)elevated ammonia level slight elevated ammonia, pt is alert and oriented plus 4. increase home Lactulose dosage (9)hypercoagulopathy INR is 2.1, likely secondary to pt's hepatic failure. pt may followup with her GI/metal stud framer closely to manage her hepatic failure. pt denied to have paracentesis. (10)sinus tachycardia pt has hx of chronic sinus tachycardia. HR is 117. pt denies chest pain or palpitation. she report she feel comfortable. pt's BP is stable. pt really want to d/c to home and declined to stay hospital for further management. (11)restless leg pt is prescribed Requip. pt tolerated very well. - HPI History of Present Illness: refer from Dr. Leone's HPI on 09/15/21 Patient is a 66-year-old female with medical history significant for hypertension and cirrhosis of the liver who presented to the ED via EMS with confusion/weakness. Her reports she woke up this morning confused and unable to stand. There were no symptoms or complaints prior to going to bed yesterday. EMS was called and the patient was unable to answer questions asked so she was brought to the ED for evaluation. Work-up in the ED showed a heart rate as high as 120. She had significant redness, swelling and pain on the dorsum of her left foot. Her labs showed a WBC of 17.9 and lactic acid of 3.4. She also had a protuberant abdomen secondary to ascites. As a result she was presented for admission for further treatment. At bedside she denied chest pain, dyspnea, abdominal pain, nausea, vomiting, fever or chills. - ALLERGIES Allergies/Adverse Reactions: Allergies Allergy/AdvReac Type Severity Reaction Status Date / Time prednisone Allergy Hallucinati Verified 09/15/21 15:11 ons Penicillins AdvReac Hives Verified 09/15/21 15:11 Sulfa (Sulfonamide AdvReac Hives Verified 09/15/21 15:11 Antibiotics) - MEDICATIONS Home Medications: Ambulatory Orders Medication Instructions Recorded Confirmed Furosemide [Lasix] 20 mg PO DAILY #30 tablet 08/19/21 09/16/21 Magnesium Oxide [Mag Ox] 400 mg PO BID 10 Days #20 tablet 08/26/21 09/16/21 Multivitamin 1 tab PO DAILY 09/16/21 09/16/21 Ondansetron Odt [Zofran Odt] 4 mg TL Q8H PRN 09/16/21 09/16/21 Pantoprazole [Protonix] 40 mg PO QDAC 09/16/21 09/16/21 Spironolactone [Aldactone] 100 mg PO DAILY 09/16/21 09/16/21 Thiamine [Vitamin B-1] 100 mg PO DAILY 09/16/21 09/16/21 oxyCODONE [Roxicodone] 5 mg PO Q4H PRN 09/16/21 09/16/21 Lactulose 15 ml PO TID #600 ml 09/19/21 cefUROXime axetiL [Ceftin] 500 mg PO Q12H #40 tablet 09/19/21 rOPINIRole [Requip] 0.25 mg PO QPM #30 tablet 09/19/21 - PHYSICAL EXAM AT DISCHARGE General Appearance: positive: No acute distress, Alert. negative: Lethargic Eyes Bilateral: positive: Normal inspection, No lid inflammation ENT: positive: ENT inspection nml, No signs of dehydration. negative: Purulent nasal drainage Neck: positive: Nml inspection, Trachea midline. negative: Tracheal deviation Respiratory: positive: Chest non-tender, No respiratory distress. negative: Wheezes Cardiovascular: positive: Regular rate & rhythm, Tachycardia. negative: Bradycardia, Systolic murmur Peripheral Pulses: positive: 2+ Abdomen: positive: Non-tender, Nml bowel sounds. negative: Tenderness, Guarding, Rebound Back: positive: Nml inspection Skin: positive: Warm, Dry, Other (jaundice) Extremities: positive: Non-tender, Full ROM, Other (mild edema and erythema at left lower extremity. pt had wound dressing covered which was done on yesterday by wound care provider) Neurologic/Psychiatric: positive: Oriented x3, Motor nml, Sensation nml. negative: Weakness, Sensory loss, Facial droop, Slurred/abnml speech - LABS Result Diagrams: 09/19/21 05:11 09/19/21 05:11 - FOLLOW UP Follow Up: You really urgent want to go home on today. You had wound care on yesterday, please followup the wound care appointment on next Thursday at [facility]. You are prescribed antibiotics Ceftin. Please followup with your PCP in one week to help your management of your wound care as well. You are alert and oriented plus 4 on today. Your ammonia level is elevated. Your home Lactulose dosage is increased. You have ascites and you have no respiratory distress and you feel comfortable. You may continue followup with GI to manage your cirrhosis and ascites. You may resume your home meds Lasix and spironolactone. Your home Steroid is holding now, you have cellulitis/ulcer infection. You may discuss with your PCP for palliative care as well. You are prescribed Requip for your restless leg. You may follow-up with your PCP in 1 week, you may follow-up with your GI/metal stud framer physician as outpatient. You may follow-up with [facility] wound care in the next week Thursday. Should your symptoms return or worsen, you may present to the ER or call 911 for help - TIME SPENT Time Spent in Discharge (Minutes): 30
[2021-09-19 14:54] VITALS: BP 128/69
[2021-10-03] MEDS ORDERED: predniSONE 20 MG TABLET PO SCH (08:00)
[2021-10-03] MEDS ORDERED: predniSONE 10 MG TABLET PO SCH (08:00)
[2021-10-13] MEDS ORDERED: predniSONE 10 MG TABLET PO SCH (08:00)
== END 2021-09-19 15:05 | disposition home or self-care (01) | DRG 854 ==
LOC: EDUNIT# → ED 14:47 → ICU 19:04 → MS3 09-16 15:42
PROVIDERS: ADMIT Internal Medicine; ATTEND Nurse Practitioner Gerontology
PROC: 0JBR0ZZ Excision of Left Foot Subcutaneous Tissue and Fascia, Open Approach (ICD-10-PCS; principal; 2021-09-18)
PROC: 0JBP0ZZ Excision of Left Lower Leg Subcutaneous Tissue and Fascia, Open Approach (ICD-10-PCS; 2021-09-18)
DX: A41.9 Sepsis, unspecified organism (principal); L03.116 Cellulitis of left lower limb; L97.902 Non-pressure chronic ulcer of unspecified part of unspecified lower leg with fat layer exposed; R32 Unspecified urinary incontinence; Z20.822 Contact with and (suspected) exposure to COVID-19; R53.1 Weakness; E87.1 Hypo-osmolality and hyponatremia; J90 Pleural effusion, not elsewhere classified; D68.8 Other specified coagulation defects; K70.31 Alcoholic cirrhosis of liver with ascites; K21.9 Gastro-esophageal reflux disease without esophagitis; I10 Essential (primary) hypertension; Z86.711 Personal history of pulmonary embolism; G62.9 Polyneuropathy, unspecified; K72.90 Hepatic failure, unspecified without coma; E86.0 Dehydration; R00.0 Tachycardia, unspecified; G25.81 Restless legs syndrome; R78.89 Finding of other specified substances, not normally found in blood; R60.0 Localized edema
CPT/HCPCS: 36415; 71045; 80048; 80053; 80202; 81001; 82140; 83605; 83690; 83735; 85025; 85610; 87040; 87086; 87150; 87633; 96365; 99284; 99285; A9270; J3370; J7512; P9047; 81003

== ENCOUNTER 2021-10-04 16:22 | Outpatient (CLI) | payer MEDICARE, OTHER | END 2021-10-04 16:23 | disposition critical access hospital (66) | LOC: EMS 16:22 | DX: R53.1 Weakness (principal); R41.0 Disorientation, unspecified; M79.605 Pain in left leg; M79.604 Pain in right leg | CPT/HCPCS: A0425; A0429 ==

== ENCOUNTER 2021-10-04 16:43 | Inpatient (IN) | payer MEDICARE, OTHER ==
--- NOTE | 2021-10-04 17:03 | ED Physician Documentation ---
History of Present Illness - Stated complaint Stated Complaint: AMS/WEAKNESS - Chief complaint Chief Complaint: General - Additonal information Additional information: 66-year-old female was brought to the emergency department for evaluation of worsening confusion in the setting of recent diagnosis of alcoholic cirrhosis. Pt ws recently dc from this hospital 09/19/2021 after a stay for enecpalopathy and sepsis. Pt has had a very high MELD score and has been deidra by hepatology at [place] recently. She may not be a candidate as of yet for liver transport as she has not yet abstained from alcohol for 6 or ore months Patient is a poor historian. Per EMS patient has been noncompliant with her meds and could not be encouraged to take them by the home health nurse today. Patient presents very jaundiced and somewhat lethargic. She is however a Glascow of 14. She does report pain in the lower legs which are both wrapped. She does have known breakdown and ulcerations of these legs. Review of Systems Unable to obtain: Confused PD PAST MEDICAL HISTORY - Past Medical History Cardiovascular: Hypertension, Pulmonary embolism Respiratory: None Neuro: Peripheral neuropathy Endocrine/Autoimmune: Other GI: GERD : None HEENT: Other Psych: None Musculoskeletal: Chronic back pain Derm: None - Past Surgical History Past Surgical History: Yes Ortho: Spine surgery, Other /PANTS CUTTER: Tubal ligation, Other HEENT: Cataracts - Present Medications Home Medications: Ambulatory Orders Medication Instructions Recorded Confirmed Furosemide [Lasix] 20 mg PO DAILY #30 tablet 08/19/21 09/16/21 Magnesium Oxide [Mag Ox] 400 mg PO BID 10 Days #20 tablet 08/26/21 09/16/21 Multivitamin 1 tab PO DAILY 09/16/21 09/16/21 Ondansetron Odt [Zofran Odt] 4 mg TL Q8H PRN 09/16/21 09/16/21 Pantoprazole [Protonix] 40 mg PO QDAC 09/16/21 09/16/21 Spironolactone [Aldactone] 100 mg PO DAILY 09/16/21 09/16/21 Thiamine [Vitamin B-1] 100 mg PO DAILY 09/16/21 09/16/21 oxyCODONE [Roxicodone] 5 mg PO Q4H PRN 09/16/21 09/16/21 Lactulose 15 ml PO TID #600 ml 09/19/21 cefUROXime axetiL [Ceftin] 500 mg PO Q12H #40 tablet 09/19/21 rOPINIRole [Requip] 0.25 mg PO QPM #30 tablet 09/19/21 - Allergies Allergies/Adverse Reactions: Allergies Allergy/AdvReac Type Severity Reaction Status Date / Time prednisone Allergy Hallucinati Verified 10/04/21 16:56 ons Penicillins AdvReac Hives Verified 10/04/21 16:56 Sulfa (Sulfonamide AdvReac Hives Verified 10/04/21 16:56 Antibiotics) - Social History Does the pt smoke?: No Smoking Status: Former smoker Does the pt have substance abuse?: No - POLST Patient has POLST: No POLST Status: Full Code PD ED PE EXPANDED - General General: Other (Appears ill, generalized jaundice. Mildly lethargic) - Neck Neck: Supple w/out meningeal sx. No: Adenopathy - Cardiac Cardiac: Regular Rate, Radial strong equal. No: Murmur Present - Respiratory Respiratory: Clear to ausultation faraz. No: Distress, Labored - Abdomen Abdomen: Distended (Mildly distended. Generally nontender to palpation. No ilir palpable ascites) - Derm Derm: Jaundiced, Other (telangiectasia of cirrhosis) - Extremities Extremities: Normal, Tenderness (both lowr extremities wrapped ) - Neuro Neuro: Confused, CNII-XII intact - GCS Eye Opening: Spontaneous Motor: Obeys Commands Verbal: Confused Total: 14 Results - Vitals Vitals: Vital Signs - 24 hr 10/04/21 16:51 Temperature 36.4 C L Heart Rate 101 H Respiratory 11 L Rate Blood Pressure 122/77 O2 Saturation 97 Oxygen O2 Source Room air - Labs Labs: Laboratory Tests 10/04/21 10/04/21 10/04/21 17:09 17:09 17:09 WBC 8.4 RBC 3.49 L Hgb 11.2 L Hct 33.8 L MCV 96.8 MCH 32.1 H MCHC 33.1 RDW 22.0 H Plt Count 160 MPV 9.4 Neut # (Auto) 5.8 Lymph # (Auto) 1.3 L Twiggs # (Auto) 1.0 Eos # (Auto) 0.1 Baso # (Auto) 0.0 Absolute Nucleated RBC 0.00 Nucleated RBC % 0.0 Manual Slide Review Indicated WBC Morphology NORMAL APPEARANCE Platelet Estimate NORMAL (130-450,000) Platelet Morphology NORMAL APPEARANCE RBC Morph Micro Appear 3+ ANISOCYTOSIS PT INR Sodium 120 L* Potassium 5.0 Chloride 88 L Carbon Dioxide 21 Anion Gap 11.0 BUN 37 H Creatinine 1.3 H Estimated GFR (MDRD) 41 L Glucose 108 H Lactic Acid 2.5 H Calcium 9.2 Phosphorus Magnesium Total Bilirubin 19.4 H AST 97 H ALT 54 Alkaline Phosphatase 128 H Ammonia Total Protein 7.3 Albumin 2.4 L Globulin 4.9 H Albumin/Globulin Ratio 0.5 L Ethyl Alcohol 7.5 10/04/21 10/04/21 10/04/21 17:09 17:09 17:09 WBC RBC Hgb Hct MCV MCH MCHC RDW Plt Count MPV Neut # (Auto) Lymph # (Auto) Twiggs # (Auto) Eos # (Auto) Baso # (Auto) Absolute Nucleated RBC Nucleated RBC % Manual Slide Review WBC Morphology Platelet Estimate Platelet Morphology RBC Morph Micro Appear PT 27.9 H INR 2.5 H Sodium Potassium Chloride Carbon Dioxide Anion Gap BUN Creatinine Estimated GFR (MDRD) Glucose Lactic Acid Calcium Phosphorus 4.1 Magnesium Total Bilirubin AST ALT Alkaline Phosphatase Ammonia 14.5 Total Protein Albumin Globulin Albumin/Globulin Ratio Ethyl Alcohol 10/04/21 17:09 WBC RBC Hgb Hct MCV MCH MCHC RDW Plt Count MPV Neut # (Auto) Lymph # (Auto) Twiggs # (Auto) Eos # (Auto) Baso # (Auto) Absolute Nucleated RBC Nucleated RBC % Manual Slide Review WBC Morphology Platelet Estimate Platelet Morphology RBC Morph Micro Appear PT INR Sodium Potassium Chloride Carbon Dioxide Anion Gap BUN Creatinine Estimated GFR (MDRD) Glucose Lactic Acid Calcium Phosphorus Magnesium 1.8 Total Bilirubin AST ALT Alkaline Phosphatase Ammonia Total Protein Albumin Globulin Albumin/Globulin Ratio Ethyl Alcohol - Rads (name of study) cxr Radiology: Final report received (Left pleural effusion) CT head Radiology: Final report received (No acute intracranial process) PD MEDICAL DECISION MAKING - ED course Complexity details: reviewed results, re-evaluated patient, considered differential, d/w patient ED course: 66-year-old female who recently diagnosed with end-stage liver disease presents to the emergency department for lethargy, altered mental status and medication noncompliance. She has not had a drink since August 18. On presentation she has no obvious focal neurodeficits Glascow 14-15. She presents very ill and jaundiced. However she is not hypotensive. Screening labs are most significant for mild leukocytosis of 11,000, she has significant hyponatremia with a sodium of 120. She has markedly elevated T bili at 19,000. Her meld score today is calculated at 34 putting her at very high 3 month mortality risk of greater than 50%. She has a mildly elevated lactate at 2.5. She does have known wounds and ulcerations on both her lower extremities being followed by wound care, however she does nto present at septic as such, therefore emperic abx were not initiated given lack of fevers or hypotension. Case was discussed with Dr. Denson who agrees to admit pt for further treatment of AMS, hyponatemia in the setting of severe ESLD/Cirrhosis. I did discuss with the patient's at the bedside given her persistently worsening condition, worsening meld score that it is likely she may not make it to the point of bec oming a transplant candidate. They may need to consider advancing from palliative to hospice care. At this point the patient remains a full code Departure - Departure Disposition: 65 [facility] DC/Xfer Clinical Impression: Hyponatremia, End stage liver disease Altered mental status Qualifiers: Altered mental status type: coma Coma depth: Jef coma 13-15 Coma timing: at arrival to emergency department Qualified Code(s): R40.2412 - Neligh coma scale score 13-15, at arrival to emergency department
[2021-10-04 17:15] LABS: BASOPHILS % (AUTO) 0.2 %; EOSINOPHILS # (AUTO) 0.1 10^3/uL (0.0-0.7); EOSINOPHILS % (AUTO) 1.7 %; HCT - HEMATOCRIT 33.8 % (37.0-47.0); HGB - HEMOGLOBIN 11.2 g/dL (12.0-16.0); LYMPHOCYTES # (AUTO) 1.3 10^3/uL (1.5-3.5); LYMPHOCYTES % (AUTO) 15.8 %; MEAN CORPUSCULAR HEMOGLOBIN 32.1 pg (27.0-31.0); MEAN CORPUSCULAR HGB CONC 33.1 g/dL (32.0-36.0); MEAN CORPUSCULAR VOLUME 96.8 fL (81.0-99.0); MEAN PLATELET VOLUME 9.4 fL (7.9-10.8); MONOCYTES % (AUTO) 12.2 %; NEUTROPHILS # (AUTO) 5.8 10^3/uL (1.5-6.6); NEUTROPHILS % (AUTO) 69.4 %; PLT - PLATELET COUNT 160 10^3/uL (130-450); RED BLOOD COUNT 3.49 10^6/uL (4.20-5.40); WHITE BLOOD COUNT 8.4 x10^3/uL (4.8-10.8)
[2021-10-04 17:30] LABS: LACTIC ACID, VENOUS 2.5 mmol/L (0.5-2.2)
[2021-10-04 17:36] LABS: ALBUMIN 2.4 g/dL (3.2-5.5); ALBUMIN/GLOBULIN RATIO 0.5 (1.0-2.2); BILIRUBIN,TOTAL 19.4 mg/dL (0.2-1.0); CALCIUM 9.2 mg/dL (8.5-10.3); CREATININE 1.3 mg/dL (0.4-1.0); ETOH - ETHANOL 7.5 mg/dL; TOTAL PROTEIN 7.3 g/dL (6.7-8.2)
--- NOTE | 2021-10-04 17:36 | XRAY Report ---
PROCEDURE: Chest 1 View X-Ray INDICATIONS: chest pain TECHNIQUE: One view of the chest was acquired. COMPARISON: 09/19/2021 FINDINGS: Surgical changes and devices: None. Lungs and pleura: Moderate left-sided pleural effusion obscures left hemidiaphragm. Associated left b asilar atelectasis and or infiltrate present. Right lung base scarring or platelike atelectasis. No p neumothorax. Mediastinum: Mediastinal contours appear normal. Heart size is normal. Bones and chest wall: No suspicious bony lesions. Overlying soft tissues appear unremarkable. IMPRESSION: Moderate left pleural effusion with atelectasis and or infiltrate, increased from the prior Reviewed by: Jw Sandoval MD on 10/04/2021 4:35 PM AKDT Approved by: Jw Sandoval MD on 10/04/2021 4:35 PM AKDT Station ID: [id number]
[2021-10-04 17:43] LABS: INR 2.5 (0.8-1.2); PT - PROTHROMBIN TIME 27.9 secs (9.9-12.6)
[2021-10-04] MEDS ORDERED: ONDANSETRON ODT 4 MG TABLET TL PRN (17:55)
[2021-10-04] MEDS ORDERED: ONDANSETRON 4 MG/2 ML VIAL IVP PRN (17:55)
--- NOTE | 2021-10-04 18:01 | ED Physician Documentation ---
ED Addendum - Addendum Addendum: 10/04/21 18:00 She was difficult for IV access and I personally placed a long 22-gauge IV in the left cephalic vein after ChloraPrep using real-time ultrasound guidance. It justo and flushed well but could not be threaded deeply into the skin.
[2021-10-04 19:06] LABS: PLATELET MORPHOLOGY NORMAL APPEARANCE (NORMAL); SLIDE REVIEW? Indicated
[2021-10-04 19:07] LABS: PLATELET ESTIMATE, MANUAL NORMAL (130-450,000) (NORMAL); RBC MORPHOLOGY (MULTIPLE) 3+ ANISOCYTOSIS (NORMAL); WBC MORPHOLOGY (MULTIPLE) NORMAL APPEARANCE (NORMAL)
--- NOTE | 2021-10-04 19:09 | CT Report ---
PROCEDURE: HEAD WO INDICATIONS: ams TECHNIQUE: Noncontrast 4.5 mm thick angled axial sections acquired from the foramen magnum to the vertex. For r adiation dose reduction, the following was used: automated exposure control, adjustment of mA and/or kV according to patient size. COMPARISON: None. FINDINGS: Image quality: Excellent. CSF spaces: Basal cisterns are patent. No extra-axial fluid collections. The ventricles are symmet samy in size and shape. Brain: No intracranial bleeds or masses. There is cerebral volume loss for age, with resultant vent ricular and sulcal prominence. There are periventricular and deep white matter chronic small vessel ischemic changes. There is intracranial internal carotid artery atherosclerosis. Skull and face: Calvarium and visualized facial bones appear intact, without suspicious lesions. Sinuses: Visualized sinuses and mastoids are clear. IMPRESSION: 1. No CT evidence of acute intracranial abnormalities. 2. Mild atrophy and mild white matter chronic small vessel ischemic changes. Reviewed by: Sina Jackson MD on 10/04/2021 7:08 PM PDT Approved by: Sina Jackson MD on 10/04/2021 7:08 PM PDT Station ID: [id number]
--- NOTE | 2021-10-04 19:57 | HISTORY & PHYSICAL EXAMINATION ---
History and Physical - History and Physical October 04, 2021 7:53 PM Chief complaint: Acute on chronic altered mental status and an alcoholic liver disease patient Source of information: Electronic medical record, [facility] medical record, , emergency room provider notes Patient participation: Unable to provide history due to confusion, encephalopathy History of present illness: describes her is a healthy lady except that she has chronic back pain. Because of the "opioid crisis" she really was not able to get very many prescription pain medications anymore. And she was starting to self medicate with alcohol. She has always drank 1 or 2 cocktails every day for over 20 years that he has known her. But in the last few years she was probably drinking more than that. He feels that overnight she became "really sick". He brought her to the emergency room here but we had no beds and she was transferred to [facility]. She was admitted to [facility] September 04, 2021 through September 07, 2021. She was given a diagnosis of acute alcoholic hepatitis and discharged on diuretics as well as prednisone for 28 days. She has a history of fatty liver over 20 years ago and on top of that has also consumed alcohol on a daily basis in the form of cocktails for the last 20 years. Her is angry. He is resigned to her poor prognosis and states "it is what it is" but he is not happy that all those years that she had fatty liver, no one told them that it could progress to liver failure/cirrhosis needing liver transplantation. She was told not to take Tylenol but she was never told not to drink alcohol he states. She developed ascites, lower extremity edema, and has not had any symptoms of esophageal varices. There has been no melena, hematochezia, or hematemesis. After discharge from [facility], she was seen by her primary care provider who referred her to [facility], [facility] and she was seen September 13, 2021. At that exam she had a disten ded abdomen with fluid wave, no rebound tenderness. No hepatosplenomegaly. She had an appropriate mood and affect, she was oriented to person place and time with intact judgment. CT of the abdomen was reviewed from June 2021 and she had focal dense atheromatous calcification within the aorta at L3 with focal high-grade stenosis. Severe stenosis at the origins of the bilateral common iliac artery. Moderate focal stenosis within midportion of left SFA,. With her visit on September 13 he added furosemide in addition to her spironolactone. She was counseled on fluid intake, low-sodium diet and alcoholic abstinence. He was waiting for her acute hepatitis to resolve before he was going to do a liver biopsy. After her September 13's visit, She was seen in our emergency room September 15. She had woken up that morning confused and unable to stand. She was unable to answer questions when EMS was called so she is brought to the emergency room. She had a high heart rate of 120 with significant redness, swelling and pain on the dorsum of her left foot. White cell count was elevated at 17.9, and lactic acid was 3.4. She had a distended protuberant abdomen secondary to ascites. She met criteria for sepsis and received antibiotics and IV fluids. Her lactic acid became normal, white cell count was 11.1. She really wanted to be discharged and she was discharged to [facility]. She had 4 nonpressure ulcers at her left lower extremity. Discussion over her high meld score with her end-stage liver disease was held with her and her . They declined paracentesis. Lactulose was increased at discharge. And her sinus tachycardia remained at about 117. Today her called ambulance because she is just not been doing well. She has increasingly altered mental status and has slurred speech, disorientation. Generalized weakness that does not allow her to get up out of bed.He states that he has been taking care of her 24/7 since her discharge from the hospital. He is overwhelmed. In addition to worsening confusion, he had a brought to the hospital because he feels he can no longer take care of her. She has been seen by wound care at the medical ambulatory clinic once. And she has been seen by [facility] twice for her legs. He calls EMS when she will not take her medications, and she will then take her medications for them but she will not take them when he asked her to. EMS is who told the ER doctor that the patient was noncompliant with medications. She could not be encouraged to take them by her home health nurse today a well. As such her called EMS and EMS brought her to the emergency room. She was jaundiced, lethargic with a Glascow scale of 14. She had pain in her legs and both of them were wrapped. Temperature was 36.4. Heart rate 101. Respirations 11. Blood pressure 122/77. 97% saturated. She was confused. Belly was mildly distended and nontender to palpation. Jaundiced. Sodium was 120. Potassium 5. BUN 37, creatinine 1.3. Lactic acid 2.5. Bilirubin is 19.4. AST 97. ALT 54. Alk phos 128. Ammonia level at discharge on September 19 was 75, antedates 14. White cell count is 8.4. Hemoglobin 11.2. Platelets 160. CT of the head had no acute changes. Chest x- ray had an enlarging left pleural effusion. No urinalysis has been done yet. Past medical history: 1. Hypertension 2. Peripheral neuropathy 3. A2 (ectopic pregnancies), 1 live . 4. Abnormal mammograms with 2 breast biopsies 5. Chronic back pain with spinal stenosis. Bilateral lower back pain radiating down to her feet. Constant numbness and tingling. s/p Lumbar epidural steroid injections. Has had C-spine surgery. Lumbar surgery 1991 and then decompression surgery 2015. 6. Senile cataracts, left eye surgery March 2018, right eye surgery February 2021 7. Pulmonary embolism 05/08/2011 8. GERD 9. Osteoarthritis left hip, Right knee. Total left hip arthroplasty October 16, 2020 10. Pneumonia 3-4 times in adult 11. Bright red blood per rectum 2014 unknown etiology Past surgical history: 1. Cervical foraminal stenosis 1991 2. Breast biopsy x2 3. Oophorectomy x2 4. Spinal surgery for spurs 2015 5. Removal ganglion surgery 6. Cataract surgery 7. Left total hip arthroplasty Allergies to prednisone, penicillin, sulfa Active Medications Sodium Chloride (Normal Saline 0.9%) 1,000 mls @ 100 mls/hr IV .Q10H [facility] Stop: 10/05/21 13:59 Last Admin: 10/04/21 20:11 Dose: 100 mls/hr Lactulose (Lactulose 10 Gm /15 Ml Udc) 10 gm PO TID [facility] Last Admin: 10/04/21 21:12 Dose: 10 gm Magnesium Oxide (Magnesium Oxide 400 Mg Tablet) 400 mg PO BID [facility] Last Admin: 10/04/21 21:12 Dose: 400 mg Morphine Sulfate (Morphine 2 Mg/Ml Carpuject) 2 mg IVP Q2HR PRN PRN Reason: PAIN Multivitamins (Multivitamin Tablet) 1 tab PO DAILYWM [facility] Ondansetron HCl (Ondansetron Odt 4 Mg Tablet) 4 mg TL Q6HR PRN PRN Reason: Nausea / Vomiting Ondansetron HCl (Ondansetron 4 Mg/2 Ml Vial) 4 mg IVP Q6HR PRN PRN Reason: Nausea / Vomiting Pantoprazole Sodium (Pantoprazole 40 Mg Tablet) 40 mg PO QDAC [facility] Ropinirole HCl (Ropinirole 0.25 Mg Tablet) 0.25 mg PO QPM [facility] Last Admin: 10/04/21 21:12 Dose: 0.25 mg Sodium Chloride (Sodium Chloride Flush 0.9% 10 Ml Syringe) 10 ml IVP 0100,0900,1700 [facility] Sodium Chloride (Sodium Chloride Flush 0.9% 10 Ml Syringe) 10 ml IVP PRN PRN PRN Reason: NEEDED PER PROVIDER ORDERS Thiamine HCl (Thiamine 100 Mg Tablet) 100 mg PO DAILY [facility] Multivitamin 1 tab PO DAILY 09/16/21 Ondansetron Odt [Zofran Odt] 4 mg TL Q8H PRN 09/16/21 Pantoprazole [Protonix] 40 mg PO QDAC 09/16/21 Spironolactone [Aldactone] 100 mg PO DAILY 09/16/21 Thiamine [Vitamin B-1] 100 mg PO DAILY 09/16/21 oxyCODONE [Roxicodone] 5 mg PO Q4H PRN 09/16/21 Social history: Smoked since her 20s. Quit 2014. Less than 1 pack/day. Calculated greater than [id number] history of smoking. Alcohol use was as high as 28 drinks a week. No history of recreational substance abuse. She is from her first marriage. She has been with her current partner for 20 years now. He obtained power of privacy attorney this last week. She does have 1 son but she is estranged from him. 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 Family history: Dad was killed when she was 8 years old when a limb fell on his head. Mom at an early age 1 brother unknown health status 1 son unknown health status Code Status: DNR. Focus on comfort and no procedures. Please seen ACP conversation under separate dictation. Review of systems: At this time the patient is unable to provide history. Any review of systems have obtained is from the . He states that she is now bedbound. Can no longer sit up on her own. She has no appetite, is not eating or drinking and has been refusing to take her medications. He denies coughing, wheezing. He does describe leg edema this been present for weeks and not really resolving. Leg edema has resolved in nonpressure ulcers primarily over her left leg where she has peripheral vascular disease.She is incontinent of urine and stool. Pain is severe in her legs and she cannot bear anybody touching her left leg specifically. In addition to the neuropathy, she has become increasingly confused, confabulating, mumbling. No focal deficits, no seizures. Physical examination, she is seen in the ICU after being transferred from the emergency room. is at the bedside. Is a confused, lethargic, mumbling female at 5 foot 6 inches tall, 79 kg. Temperature is 36.5. Heart rate is 98. Blood pressure 110/62. Respirations vary between 9-12. 96% on room air. ENT: Dry oral mucosa, severely jaundiced sclera, no facial asymmetry. Speech is mumbling. Neck: Supple, no JVD, no bruits Pulmonary: Diminished breath sounds at both bases, shallow, unlabored respiration, increases her respiratory rate at the idea of having her legs touched and she gets tachypneic until she calms down, no crackles, rhonchi, wheezing Cardiovascular: Slightly tachycardic at 101 202 at times. Regular rate and rhythm. Systolic ejection murmur present at the left lower sternal border. Nonradiating Abdomen: Soft, hypoactive bowel sounds, fluid wave palpated, no hepatosplenomegaly, nontender Extremities: Edematous legs, 4 ulcers on her left leg that would be photographed by nursing. No evidence of redness or cellulitis or infection. Skin, jaundiced, dry, cool hands and feet Neurologically: Can only state her name. Does not know where she is or why she is here. Is able to recognize her . Does not follow commands. Mumbles. Very sensitive to pain. No focal deficits. No asterixis. Laboratory Tests 10/04/21 10/04/21 10/04/21 17:09 17:09 17:09 WBC 8.4 Hgb 11.2 L Hct 33.8 L MCV 96.8 Plt Count 160 INR Sodium 120 L* Potassium 5.0 Chloride 88 L BUN 37 H Creatinine 1.3 H Estimated GFR (MDRD) 41 L Glucose 108 H Lactic Acid 2.5 H Calcium 9.2 Total Bilirubin 19.4 H AST 97 H ALT 54 Alkaline Phosphatase 128 H Ammonia Albumin 2.4 L Globulin 4.9 H Ethyl Alcohol 7.5 10/04/21 10/04/21 17:09 17:09 WBC Hgb Hct MCV Plt Count INR 2.5 H Sodium Potassium Chloride BUN Creatinine Estimated GFR (MDRD) Glucose Lactic Acid Calcium Total Bilirubin AST ALT Alkaline Phosphatase Ammonia 14.5 Albumin Globulin Ethyl Alcohol Assessment/plan: 1. Metabolic encephalopathy 2. Liver failure 3. Alcoholic liver disease with ascites 4. Acute kidney injury 5. Dehydration 6. Alcohol abuse 7. Lactic acidosis due to #2 8. Hyponatremia That is chronic with acute worsening 9. History of pulmonary embolism 10. DO NOT RESUSCITATE status 11. Hypomagnesemia 12. Nonpressure leg ulcers that may be ischemic due to peripheral vascular disease 13. Chronic pain syndrome due to back pain and peripheral neuropathy and leg ulcers Under separate dictation and advance care planning conversation was held with the . Patient was unable to participate. He recognizes that she is at a critical juncture. She may be at end-of-life due to liver failure. Her hepatic encephalopathy has most likely rendered her unable to be taking her medications as instructed. Although he states that she is sober, she does have alcohol levels that are positive. She will be admitted to inpatient status and given IV fluids, supportive therapy, and control of symptoms. Our goals are to see if she stabilizes and that some of her liver failure progresses. But he is aware that her meld score is quite high at 34 and that she has up to a 60% rate of mortality in the next 3 months. She will get daily labs. Addition of antibiotics if her blood cultures become positive. She has not had a history of alcohol withdrawal and we will monitor her for that. If that occurs, alcohol withdrawal protocol will be instituted. At this time, I will not do DVT prophylaxis since her INR is prolonged even though she has a history of pulmonary embolism. I believe her lactic acidosis is due to her liver failure and will respond to hydration. She will be continued on her prednisone. Low magnesium will be supplemented. Give her morphine to help her control her pain. At this time she says the pain is too severe and will not let us take down the bandages so that we can take pictures of her leg wounds.
[2021-10-04] MEDS: SODIUM CHLORIDE 0.9% 1,000 ML IV SCH (20:11)
[2021-10-04] MEDS ORDERED: rOPINIRole 0.25 MG TABLET PO SCH (21:00)
[2021-10-04] MEDS: MAGNESIUM OXIDE 400 MG TABLET PO SCH (21:12)
[2021-10-04] MEDS: LACTULOSE 10 GM /15 ML UDC PO SCH (21:12)
--- NOTE | 2021-10-04 21:59 | ADVANCE CARE PLANNING NOTE ---
Advance Care Planning - Planning Encounter Date: 10/04/21 Time: 20:30 Purpose: Establish care goals and CODE STATUS Parties in Attendance: , patient, hospitalist Decisional Capacity of the Patient: Has severe encephalopathy, unable to participate in conversation - Diagnosis for Encounter (1) End stage liver disease Summary: Patient was told she had fatty liver 20 years ago. She was instructed not to take liver toxic drugs such as Tylenol but her states that she was never told not to drink alcohol. Because of back pain she has been using alcohol as a pain control mechanism. Sometimes drinks up to 28 drinks a week. She was recently diagnosed with liver failure in August. - Encounter Subjective/Patient's Story: She was born in [facility]. Her father was killed in a tree accident and mom also shortly thereafter. From there she went into the foster system and bounced around. One of her foster fathers ended up fishing in [place] and she followed him there. She met her who was in the [employer] (he graduated from the [employer]). They were for quite some time and she had 1 child with him. They came [place] down to the [place] [id number] and lived in [place], [place], and finally [place]. He in [place] and she was for many years until she met her second partner 20 years ago. They are not legally . It was only recently that he obtain power of environmental attorney for her. She is estranged from her son. When they were living in [place], she took care of a daughters grandchild 3 weekends out of the month for 3 years. 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 When her daughter's partner retired from the [facility] [employer], and moved to [facility], they followed them to [place] so they could be near their grandchild again. 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 Mr. Thakkar, her partner, describes her as a "wonderful woman". She was funny, charming, very smart. Had a wonderful sense of humor. He says that the reason they are so successful in their accounting business is because of her. She is the one that attracted all the clients. He states that she was completely independent with activities of daily living. She dress herself, fed herself, drive a car, ran the business until she became sick in July. And since her hospitalization in August at [facility], she has never bounced back to normal. She has become increasingly dependent upon him. Since her discharge from her last hospitalization with us September 19 she can no longer dress herself, feed herself. She is incontinent of urine or stool and is bedbound. She is making less and less sense as time goes on. Which then leads her not to be compliant with medication and she becomes even more confused. He is overwhelmed. He says he just cannot take care of her this way anymore. He is very fatalistic about her prognosis and states "it is what it is" but finds himself angry that they never really were informed of what fatty liver disease meant. He thinks that if she had understood that she could end up this way she would never drink as much as she did. She was just told that she could not take Tylenol, and because of the opioid crisis could not be prescribed long- term opioids. They never really discussed end-of-life care. However he does note that she would not want to be resuscitated. And requested that be put in her record. He also states that he feels that she will not make it to 6 months of sobriety before she will be evaluated for a possible liver transplant. He thinks that she may pass away before then. With that in mind he would like a hospice evaluation so that she can be discharged to hospice when she leaves here. Objective/Medical Story: describes her is a healthy lady except that she has chronic back pain. Because of the "opioid crisis" she really was not able to get very many prescription pain medications anymore. And she was starting to self medicate with alcohol. She has always drank 1 or 2 cocktails every day for over 20 years that he has known her. But in the last few years she was probably drinking more than that. He feels that overnight she became "really sick". He brought her to the emergency room here but we had no beds and she was transferred to [facility]. She was admitted to [facility] September 04, 2021 through September 07, 2021. She was given a diagnosis of acute alcoholic hepatitis and discharged on diuretics as well as prednisone for 28 days. She has a history of fatty liver over 20 years ago and on top of that has also consumed alcohol on a daily basis in the form of cocktails for the last 20 years. Her is angry. He is resigned to her poor prognosis and states "it is what it is" but he is not happy that all those years that she had fatty liver, no one told them that it could progress to liver failure/cirrhosis needing liver transplantation. She was told not to take Tylenol but she was never told not to drink alcohol he states. She developed ascites, lower extremity edema, and has not had any symptoms of esophageal varices. There has been no melena, hematochezia, or hematemesis. After discharge from [facility], she was seen by her primary care provider who referred her to [facility], [facility] and she was seen September 13, 2021. At that exam she had a distended abdomen with fluid wave, no rebound tenderness. No hepatosplenomegaly. She had an appropriate mood and affect, she was oriented to person place and time with intact judgment. CT of the abdomen was reviewed from June 2021 and she had focal dense atheromatous calcification within the aorta at L3 with focal high-grade stenosis. Severe stenosis at the origins of the bilateral common iliac artery. Moderate focal stenosis within midportion of left SFA,. With her visit on September 13 he added furosemide in addition to her spironolactone. She was counseled on fluid intake, low-sodium diet and alcoholic abstinence. He was waiting for her acute hepatitis to resolve before he was going to do a liver biopsy. After her September 13's visit, She was seen in our emergency room September 15. She had woken up that morning confused and unable to stand. She was unable to answer questions when EMS was called so she is brought to the emergency room. She had a high heart rate of 120 with significant redness, swelling and pain on the dorsum of her left foot. White cell count was elevated at 17.9, and lactic acid was 3.4. She had a distended protuberant abdomen secondary to ascites. She met criteria for sepsis and received antibiotics and IV fluids. Her lactic acid became normal, white cell count was 11.1. She really wanted to be discharged and she was discharged to [facility]. She had 4 nonpressure ulcers at her left lower extremity. Discussion over her high meld score with her end-stage liver disease was held with her and her . They declined paracentesis. Lactulose was increased at discharge. And her sinus tachycardia remained at about 117. Today her called ambulance because she is just not been doing well. She has increasingly altered mental status and has slurred speech, disorientation. Generalized weakness that does not allow her to get up out of bed.He states that he has been taking care of her 24/ since her discharge from the hospital. He is overwhelmed. In addition to worsening confusion, he had a brought to the hospital because he feels he can no longer take care of her. She has been seen by wound care at the medical ambulatory clinic once. And she has been seen by [facility] twice for her legs. He calls EMS when she will not take her medications, and she will then take her medications for them but she will not take them when he asked her to. EMS is who told the ER doctor that the patient was noncompliant with medications. She could not be encouraged to take them by her home health nurse today a well. As such her called EMS and EMS brought her to the emergency room. She was jaundiced, lethargic with a Glascow scale of 14. She had pain in her legs and both of them were wrapped. Temperature was 36.4. Heart rate 101. Respirations 11. Blood pressure 122/77. 97% saturated. She was confused. Belly was mildly distended and nontender to palpation. Jaundiced. Sodium was 120. Potassium 5. BUN 37, creatinine 1.3. Lactic acid 2.5. Bilirubin is 19.4. AST 97. ALT 54. Alk phos 128. Ammonia level at discharge on September 19 was 75, antedates 14. White cell count is 8.4. Hemoglobin 11.2. Platelets 160. CT of the head had no acute changes. Chest x- ray had an enlarging left pleural effusion. No urinalysis has been done yet. Past medical history: 1. Hypertension 2. Peripheral neuropathy 3. A2 (ectopic pregnancies), 1 live . 4. Abnormal mammograms with 2 breast biopsies 5. Chronic back pain with spinal stenosis. Bilateral lower back pain radiating down to her feet. Constant numbness and tingling. s/p Lumbar epidural steroid injections. Has had C-spine surgery. Lumbar surgery 1991 and then decompression surgery 2015. 6. Senile cataracts, left eye surgery March 2018, right eye surgery February 2021 7. Pulmonary embolism 05/08/2011 8. GERD 9. Osteoarthritis left hip, Right knee. Total left hip arthroplasty October 16, 2020 10. Pneumonia 3-4 times in adult 11. Bright red blood per rectum 2014 unknown etiology Past surgical history: 1. Cervical foraminal stenosis 1991 2. Breast biopsy x2 3. Oophorectomy x2 4. Spinal surgery for spurs 2015 5. Removal ganglion surgery 6. Cataract surgery 7. Left total hip arthroplasty Allergies to prednisone, penicillin, sulfa Goals of Care: He wants us to focus on comfort measures. While he does want vital signs, labs done to see if she is responding to fluids and hydration, he does not want procedures. He does not want transfer to an outside facility. He is goal is to take her home and have her at home as long as he can get some help. Plan: 1. Hospice referral. 2. Social work consultation 3. POLST form will need to be filled out. Code Status: Do Not Attempt Resuscitation Time spent on advance care plannin minutes
[2021-10-04] MEDS: MORPHINE 2 MG/ML CARPUJECT IVP PRN (22:04)
[2021-10-04 22:52] LABS: GLUCOSE, URINE (UA) NEGATIVE (NEGATIVE); KETONES,URINE (UA) NEGATIVE (NEGATIVE); LEUKOCYTE ESTERASE, URINE NEGATIVE (NEGATIVE); NITRITE,URINE POSITIVE (NEGATIVE); OCCULT BLOOD,URINE NEGATIVE (NEGATIVE); PROTEIN,URINE NEGATIVE (NEGATIVE); UROBILINOGEN,URINE 0.2 (NORMAL) E.U./dL (NORMAL)
[2021-10-04 23:03] LABS: BACTERIA,URINE Few /HPF (None Seen); CLARITY,URINE CLEAR (CLEAR); RBC,URINE 0-5 /HPF (0-5); SQUAMOUS EPITHELIAL CELL,UR RARE Squamous (<= Few); WBC,URINE 0-3 /HPF (0-5)
[2021-10-04 23:04] LABS: BILIRUBIN,URINE MODERATE (NEGATIVE); ICTOTEST,URINE POSITIVE
[2021-10-04 23:05] LABS: CASTS, URINE 0-2 Hyaline Casts /LPF
[2021-10-05] MEDS: SODIUM CHLORIDE FLUSH 0.9% 10 ML SYRINGE IVP SCH ×3 (00:34→17:30)
[2021-10-05] MEDS: MORPHINE 2 MG/ML CARPUJECT IVP PRN ×3 (00:34→11:32)
[2021-10-05] MEDS: SODIUM CHLORIDE 0.9% 1,000 ML IV SCH (05:19)
[2021-10-05] MEDS: SODIUM CHLORIDE FLUSH 0.9% 10 ML SYRINGE IVP PRN (05:20)
[2021-10-05] MEDS: LACTULOSE 10 GM /15 ML UDC PO SCH (05:20)
[2021-10-05] MEDS ORDERED: PANTOPRAZOLE 40 MG TABLET PO SCH (07:00)
[2021-10-05] MEDS ORDERED: MULTIVITAMIN TABLET PO SCH (08:00)
[2021-10-05] MEDS ORDERED: THIAMINE 100 MG TABLET PO SCH (09:00)
[2021-10-05] MEDS: MAGNESIUM OXIDE 400 MG TABLET PO SCH (09:11)
[2021-10-05] MEDS ORDERED: HALOPERIDOL 5 MG/ML VIAL IVP PRN (11:44)
--- NOTE | 2021-10-05 11:48 | PROVIDER PROGRESS NOTE ---
Subjective - Prog Note Date Prog Note Date: 10/05/21 - Subjective Subjective: Patient declined labs this morning. She is altered unable to provide a history. She nods no when asked if she has any pain. Current Medications - Current Medications Current Medications: Active Medications Glycopyrrolate (Glycopyrrolate 1 Mg/5 Ml Vial) 0.2 mg SUBQ Q4H PRN PRN Reason: Excessive secretions Haloperidol (Haloperidol 5 Mg/Ml Vial) 1 mg IVP Q2H PRN PRN Reason: Agitation Lorazepam (Lorazepam 2 Mg/Ml Vial) 1 mg IVP Q6H PRN PRN Reason: Anxiety/Agitation Morphine Sulfate (Morphine 2 Mg/Ml Carpuject) 2 mg IVP Q2HR PRN PRN Reason: PAIN Last Admin: 10/05/21 11:32 Dose: 2 mg Ondansetron HCl (Ondansetron 4 Mg/2 Ml Vial) 4 mg IVP Q6HR PRN PRN Reason: Nausea / Vomiting Sodium Chloride (Sodium Chloride Flush 0.9% 10 Ml Syringe) 10 ml IVP 0100,0900,1700 JESUS Last Admin: 10/05/21 09:15 Dose: Not Given Sodium Chloride (Sodium Chloride Flush 0.9% 10 Ml Syringe) 10 ml IVP PRN PRN PRN Reason: NEEDED PER PROVIDER ORDERS Last Admin: 10/05/21 05:20 Dose: 10 ml Multivitamin 1 tab PO DAILY 09/16/21 Ondansetron Odt [Zofran Odt] 4 mg TL Q8H PRN 09/16/21 Pantoprazole [Protonix] 40 mg PO QDAC 09/16/21 Spironolactone [Aldactone] 100 mg PO DAILY 09/16/21 Thiamine [Vitamin B-1] 100 mg PO DAILY 09/16/21 oxyCODONE [Roxicodone] 5 mg PO Q6H PRN 09/16/21 predniSONE [Deltasone] 10 - 30 mg PO DAILY 10/05/21 Objective - Vital Signs/Intake & Output Reviewed Vital Signs: Yes Vital Signs: Vital Signs Temp Pulse Resp BP Pulse Ox 10/05/21 11:00 103 H 9 L 100/69 90 L 10/05/21 10:00 37.1 C 104 H 11 L 96/53 L 92 10/05/21 09:00 36.4 C L 107 H 10 L 104/65 94 10/05/21 08:00 36.4 C L 104 H 12 94/76 90 L Intake & Output: Intake & Output 10/02/21 10/03/21 10/04/21 10/05/21 23:59 23:59 23:59 23:59 Intake Total 0 1566.333 Output Total 410 293 Balance -410 1273.333 - Objective General Appearance: positive: Other (She is lethargic but will open her eyes. Will occasionally say 1 word answers.) Eyes Bilateral: positive: Other (Scleral icterus) ENT: positive: Dry mucous membranes Respiratory: positive: No respiratory distress. negative: Wheezes, Rales Cardiovascular: positive: Regular rate & rhythm. negative: Tachycardia Abdomen: positive: Non-tender. negative: Tenderness Skin: positive: Warm, Dry, Other (She has multiple wounds over the lateral a spect, medial aspect of her left foot with surrounding erythema but no purulent drainage. There is a 5 cm wound over the lateral aspect of the lower leg with surrounding eschar. She is jaundiced) Extremities: positive: No pedal edema Neurologic/Psychiatric: positive: Other (She does not follow commands consistently but there are no obvious focal deficits.) - Lab Results Fish Bones: 10/04/21 17:09 10/04/21 17:09 Other Labs: Lab Results x24hrs 10/04/21 10/04/21 10/04/21 Range/Units 22:42 19:40 18:23 WBC (4.8-10.8) x10^3/uL RBC (4.20-5.40) 10^6/uL Hgb (12.0-16.0) g/dL Hct (37.0-47.0) % MCV (81.0-99.0) fL MCH (27.0-31.0) pg MCHC (32.0-36.0) g/dL RDW (12.0-15.0) % Plt Count (130-450) 10^3/uL MPV (7.9-10.8) fL Neut # (Auto) (1.5-6.6) 10^3/uL Lymph # (Auto) (1.5-3.5) 10^3/uL [place] # (Auto) (0.0-1.0) 10^3/uL Eos # (Auto) (0.0-0.7) 10^3/uL Baso # (Auto) (0.0-0.1) 10^3/uL Absolute Nucleated RBC x10^3/uL Nucleated RBC % /100WBC Manual Slide Review WBC Morphology (NORMAL) Platelet Estimate (NORMAL) Platelet Morphology (NORMAL) RBC Morph Micro Appear (NORMAL) PT (9.9-12.6) secs INR (0.8-1.2) Sodium (135-145) mmol/L Potassium (3.5-5.0) mmol/L Chloride (101-111) mmol/L Carbon Dioxide (21-32) mmol/L Anion Gap (6-13) BUN (6-20) mg/dL Creatinine (0.4-1.0) mg/dL Estimated GFR (MDRD) (>89) Glucose (70-100) mg/dL Lactic Acid (0.5-2.2) mmol/L Calcium (8.5-10.3) mg/dL Phosphorus (2.5-4.6) mg/dL Magnesium (1.7-2.8) mg/dL Total Bilirubin (0.2-1.0) mg/dL AST (10-42) IU/L ALT (10-60) IU/L Alkaline Phosphatase (42-121) IU/L Ammonia (7-35) umol/L Total Protein (6.7-8.2) g/dL Albumin (3.2-5.5) g/dL Globulin (2.1-4.2) g/dL Albumin/Globulin Ratio (1.0-2.2) Urine Color DARK YELLOW Urine Clarity CLEAR (CLEAR) Urine pH 6.0 (5.0-7.5) PH Ur Specific [place] 1.020 (1.002-1.030) Urine Protein NEGATIVE (NEGATIVE) mg/dL Urine Glucose (UA) NEGATIVE (NEGATIVE) mg/dL Urine Ketones NEGATIVE (NEGATIVE) mg/dL Urine Occult Blood NEGATIVE (NEGATIVE) Urine Nitrite POSITIVE H (NEGATIVE) Urine Bilirubin MODERATE H (NEGATIVE) Urine Urobilinogen 0.2 (NORMAL) (NORMAL) E.U./dL Ur Leukocyte Esterase NEGATIVE (NEGATIVE) Urine RBC 0-5 (0-5) /HPF Urine WBC 0-3 (0-5) /HPF Ur Squamous Epith Cells RARE Squamous (<= Few) Urine Bacteria Few (None Seen) /HPF Urine Casts 0-2 Hyaline Casts /LPF Urine Culture Comments INDICATED Nasal Screen MRSA (PCR) NEGATIVE (NEGATIVE) Ethyl Alcohol mg/dL SARS-CoV-2 (PCR) NOT DETECTED 10/04/21 10/04/21 10/04/21 Range/Units 17:09 17:09 17:09 WBC (4.8-10.8) x10^3/uL RBC (4.20-5.40) 10^6/uL Hgb (12.0-16.0) g/dL Hct (37.0-47.0) % MCV (81.0-99.0) fL MCH (27.0-31.0) pg MCHC (32.0-36.0) g/dL RDW (12.0-15.0) % Plt Count (130-450) 10^3/uL MPV (7.9-10.8) fL Neut # (Auto) (1.5-6.6) 10^3/uL Lymph # (Auto) (1.5-3.5) 10^3/uL [place] # (Auto) (0.0-1.0) 10^3/uL Eos # (Auto) (0.0-0.7) 10^3/uL Baso # (Auto) (0.0-0.1) 10^3/uL Absolute Nucleated RBC x10^3/uL Nucleated RBC % /100WBC Manual Slide Review WBC Morphology (NORMAL) Platelet Estimate (NORMAL) Platelet Morphology (NORMAL) RBC Morph Micro Appear (NORMAL) PT 27.9 H (9.9-12.6) secs INR 2.5 H (0.8-1.2) Sodium (135-145) mmol/L Potassium (3.5-5.0) mmol/L Chloride (101-111) mmol/L Carbon Dioxide (21-32) mmol/L Anion Gap (6-13) BUN (6-20) mg/dL Creatinine (0.4-1.0) mg/dL Estimated GFR (MDRD) (>89) Glucose (70-100) mg/dL Lactic Acid (0.5-2.2) mmol/L Calcium (8.5-10.3) mg/dL Phosphorus 4.1 (2.5-4.6) mg/dL Magnesium 1.8 (1.7-2.8) mg/dL Total Bilirubin (0.2-1.0) mg/dL AST (10-42) IU/L ALT (10-60) IU/L Alkaline Phosphatase (42-121) IU/L Ammonia (7-35) umol/L Total Protein (6.7-8.2) g/dL Albumin (3.2-5.5) g/dL Globulin (2.1-4.2) g/dL Albumin/Globulin Ratio (1.0-2.2) Urine Color Urine Clarity (CLEAR) Urine pH (5.0-7.5) PH Ur Specific [place] (1.002-1.030) Urine Protein (NEGATIVE) mg/dL Urine Glucose (UA) (NEGATIVE) mg/dL Urine Ketones (NEGATIVE) mg/dL Urine Occult Blood (NEGATIVE) Urine Nitrite (NEGATIVE) Urine Bilirubin (NEGATIVE) Urine Urobilinogen (NORMAL) E.U./dL Ur Leukocyte Esterase (NEGATIVE) Urine RBC (0-5) /HPF Urine WBC (0-5) /HPF Ur Squamous Epith Cells (<= Few) Urine Bacteria (None Seen) /HPF Urine Casts /LPF Urine Culture Comments Nasal Screen MRSA (PCR) (NEGATIVE) Ethyl Alcohol mg/dL SARS-CoV-2 (PCR) 10/04/21 10/04/21 10/04/21 Range/Units 17:09 17:09 17:09 WBC (4.8-10.8) x10^3/uL RBC (4.20-5.40) 10^6/uL Hgb (12.0-16.0) g/dL Hct (37.0-47.0) % MCV (81.0-99.0) fL MCH (27.0-31.0) pg MCHC (32.0-36.0) g/dL RDW (12.0-15.0) % Plt Count (130-450) 10^3/uL MPV (7.9-10.8) fL Neut # (Auto) (1.5-6.6) 10^3/uL Lymph # (Auto) (1.5-3.5) 10^3/uL [place] # (Auto) (0.0-1.0) 10^3/uL Eos # (Auto) (0.0-0.7) 10^3/uL Baso # (Auto) (0.0-0.1) 10^3/uL Absolute Nucleated RBC x10^3/uL Nucleated RBC % /100WBC Manual Slide Review WBC Morphology (NORMAL) Platelet Estimate (NORMAL) Platelet Morphology (NORMAL) RBC Morph Micro Appear (NORMAL) PT (9.9-12.6) secs INR (0.8-1.2) Sodium 120 L* (135-145) mmol/L Potassium 5.0 (3.5-5.0) mmol/L Chloride 88 L (101-111) mmol/L Carbon Dioxide 21 (21-32) mmol/L Anion Gap 11.0 (6-13) BUN 37 H (6-20) mg/dL Creatinine 1.3 H (0.4-1.0) mg/dL Estimated GFR (MDRD) 41 L (>89) Glucose 108 H (70-100) mg/dL Lactic Acid 2.5 H (0.5-2.2) mmol/L Calcium 9.2 (8.5-10.3) mg/dL Phosphorus (2.5-4.6) mg/dL Magnesium (1.7-2.8) mg/dL Total Bilirubin 19.4 H (0.2-1.0) mg/dL AST 97 H (10-42) IU/L ALT 54 (10-60) IU/L Alkaline Phosphatase 128 H (42-121) IU/L Ammonia 14.5 (7-35) umol/L Total Protein 7.3 (6.7-8.2) g/dL Albumin 2.4 L (3.2-5.5) g/dL Globulin 4.9 H (2.1-4.2) g/dL Albumin/Globulin Ratio 0.5 L (1.0-2.2) Urine Color Urine Clarity (CLEAR) Urine pH (5.0-7.5) PH Ur Specific [place] (1.002-1.030) Urine Protein (NEGATIVE) mg/dL Urine Glucose (UA) (NEGATIVE) mg/dL Urine Ketones (NEGATIVE) mg/dL Urine Occult Blood (NEGATIVE) Urine Nitrite (NEGATIVE) Urine Bilirubin (NEGATIVE) Urine Urobilinogen (NORMAL) E.U./dL Ur Leukocyte Esterase (NEGATIVE) Urine RBC (0-5) /HPF Urine WBC (0-5) /HPF Ur Squamous Epith Cells (<= Few) Urine Bacteria (None Seen) /HPF Urine Casts /LPF Urine Culture Comments Nasal Screen MRSA (PCR) (NEGATIVE) Ethyl Alcohol 7.5 mg/dL SARS-CoV-2 (PCR) 10/04/21 Range/Units 17:09 WBC 8.4 (4.8-10.8) x10^3/uL RBC 3.49 L (4.20-5.40) 10^6/uL Hgb 11.2 L (12.0-16.0) g/dL Hct 33.8 L (37.0-47.0) % MCV 96.8 (81.0-99.0) fL MCH 32.1 H (27.0-31.0) pg MCHC 33.1 (32.0-36.0) g/dL RDW 22.0 H (12.0-15.0) % Plt Count 160 (130-450) 10^3/uL MPV 9.4 (7.9-10.8) fL Neut # (Auto) 5.8 (1.5-6.6) 10^3/uL Lymph # (Auto) 1.3 L (1.5-3.5) 10^3/uL [place] # (Auto) 1.0 (0.0-1.0) 10^3/uL Eos # (Auto) 0.1 (0.0-0.7) 10^3/uL Baso # (Auto) 0.0 (0.0-0.1) 10^3/uL Absolute Nucleated RBC 0.00 x10^3/uL Nucleated RBC % 0.0 /100WBC Manual Slide Review Indicated WBC Morphology NORMAL APPEARANCE (NORMAL) Platelet Estimate NORMAL (130-450,000) (NORMAL) Platelet Morphology NORMAL APPEARANCE (NORMAL) RBC Morph Micro Appear 3+ ANISOCYTOSIS (NORMAL) PT (9.9-12.6) secs INR (0.8-1.2) Sodium (135-145) mmol/L Potassium (3.5-5.0) mmol/L Chloride (101-111) mmol/L Carbon Dioxide (21-32) mmol/L Anion Gap (6-13) BUN (6-20) mg/dL Creatinine (0.4-1.0) mg/dL Estimated GFR (MDRD) (>89) Glucose (70-100) mg/dL Lactic Acid (0.5-2.2) mmol/L Calcium (8.5-10.3) mg/dL Phosphorus (2.5-4.6) mg/dL Magnesium (1.7-2.8) mg/dL Total Bilirubin (0.2-1.0) mg/dL AST (10-42) IU/L ALT (10-60) IU/L Alkaline Phosphatase (42-121) IU/L Ammonia (7-35) umol/L Total Protein (6.7-8.2) g/dL Albumin (3.2-5.5) g/dL Globulin (2.1-4.2) g/dL Albumin/Globulin Ratio (1.0-2.2) Urine Color Urine Clarity (CLEAR) Urine pH (5.0-7.5) PH Ur Specific [place] (1.002-1.030) Urine Protein (NEGATIVE) mg/dL Urine Glucose (UA) (NEGATIVE) mg/dL Urine Ketones (NEGATIVE) mg/dL Urine Occult Blood (NEGATIVE) Urine Nitrite (NEGATIVE) Urine Bilirubin (NEGATIVE) Urine Urobilinogen (NORMAL) E.U./dL Ur Leukocyte Esterase (NEGATIVE) Urine RBC (0-5) /HPF Urine WBC (0-5) /HPF Ur Squamous Epith Cells (<= Few) Urine Bacteria (None Seen) /HPF Urine Casts /LPF Urine Culture Comments Nasal Screen MRSA (PCR) (NEGATIVE) Ethyl Alcohol mg/dL SARS-CoV-2 (PCR) Assessment/Plan - Problem List (1) End stage liver disease Impression: She unfortunately has end-stage liver disease with a MELD score of 34. 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 We discussed today that the patient declined labs and she has not had any improvement since admission. We once again discussed her poor prognosis given the end-stage liver disease. We discussed options include continuing medical therapy with IV fluids and lab draws but that this would still not treat her underlying liver disease. Another option would entail focusing on her comfort and consulting hospice to assist with disposition. He prefers to proceed with the latter and so we will transition to comfort care only. We will discontinue all IV fluids. We will treat her with morphine, lorazepam, Haldol as needed she fortunately does appear comfortable at this time. I did speak with the group account director and it is felt that she likely does not need GIP at this time but they will help assist this w ith disposition given that the family's goal is to take her home but the patient's spouse will need assistance and support with this. (2) Comfort measures only status Impression: The plan is now to focus on her comfort as mentioned above. (3) Encephalopathy Impression: This likely secondary to her liver failure despite her ammonia being within normal limits. Plan is to focus on her comfort now as mentioned above. (4) Acute kidney injury Impression: This is likely due to volume depletion and she appears hypovolemic. We will discontinue IV fluids given the goal is now to focus on her comfort. (5) Hyponatremia Impression: We were unable to obtain repeat lab this morning and now that she is on comfort measures, we will no longer check labs and will discontinue IV fluids. (6) Non-pressure ulcer of lower extremity Impression: We suspect this is likely due to peripheral vascular disease. The focus is now on her comfort. Qualifiers: Laterality: left Non-pressure ulcer stage: with fat layer exposed Qualified Code(s): L97.922 - Non-pressure chronic ulcer of unspecified part of left lower leg with fat layer exposed
[2021-10-06] MEDS: SODIUM CHLORIDE FLUSH 0.9% 10 ML SYRINGE IVP SCH ×4 (00:30→23:43)
[2021-10-06] MEDS: MORPHINE 2 MG/ML CARPUJECT IVP PRN ×4 (04:19→23:42)
--- NOTE | 2021-10-06 07:34 | PROVIDER PROGRESS NOTE ---
Subjective - Prog Note Date Prog Note Date: 10/06/21 - Subjective Subjective: She appears comfortable. She is too lethargic to answer questions. Current Medications - Current Medications Current Medications: Active Medications Glycopyrrolate (Glycopyrrolate 1 Mg/5 Ml Vial) 0.2 mg SUBQ Q4H PRN PRN Reason: Excessive secretions Haloperidol (Haloperidol 5 Mg/Ml Vial) 1 mg IVP Q2H PRN PRN Reason: Agitation Lorazepam (Lorazepam 2 Mg/Ml Vial) 1 mg IVP Q6H PRN PRN Reason: Anxiety/Agitation Morphine Sulfate (Morphine 2 Mg/Ml Carpuject) 2 mg IVP Q2HR PRN PRN Reason: PAIN Last Admin: 10/06/21 04:19 Dose: 2 mg Ondansetron HCl (Ondansetron 4 Mg/2 Ml Vial) 4 mg IVP Q6HR PRN PRN Reason: Nausea / Vomiting Sodium Chloride (Sodium Chloride Flush 0.9% 10 Ml Syringe) 10 ml IVP 010 0,0900,1700 JESUS Last Admin: 10/06/21 00:30 Dose: 10 ml Sodium Chloride (Sodium Chloride Flush 0.9% 10 Ml Syringe) 10 ml IVP PRN PRN PRN Reason: NEEDED PER PROVIDER ORDERS Last Admin: 10/05/21 05:20 Dose: 10 ml Multivitamin 1 tab PO DAILY 09/16/21 Ondansetron Odt [Zofran Odt] 4 mg TL Q8H PRN 09/16/21 Pantoprazole [Protonix] 40 mg PO QDAC 09/16/21 Spironolactone [Aldactone] 100 mg PO DAILY 09/16/21 Thiamine [Vitamin B-1] 100 mg PO DAILY 09/16/21 oxyCODONE [Roxicodone] 5 mg PO Q6H PRN 09/16/21 predniSONE [Deltasone] 10 - 30 mg PO DAILY 10/05/21 Objective - Vital Signs/Intake & Output Reviewed Vital Signs: Yes Intake & Output: Intake & Output 10/03/21 10/04/21 10/05/21 10/06/21 23:59 23:59 23:59 23:59 Intake Total 0 1591.333 Output Total 410 468 175 Balance -410 1123.333 -175 - Objective General Appearance: positive: Lethargic, Other (She will open her eyes but will quickly fall asleep.) Eyes Bilateral: positive: Other (Scleral icterus) Skin: positive: Other (Jaundice) Extremities: positive: Other (Dressing in place over left lower extremity) Neurologic/Psychiatric: positive: Other (She does not follow commands) - Lab Results Fish Bones: 10/04/21 17:09 10/04/21 17:09 Assessment/Plan - Problem List (1) End stage liver disease Impression: Her MELD score is 34 and a decision yesterday was made to focus on her comfort. I did speak with the hospital pharmacy director yesterday to see if the patient be a candidate for GIP but unfortunately she is not. The goal is to get her home on hospice and there may potentially be an opening tomorrow. The patient's will need assistance at home as he cannot care for her on his own in her current condition. Prognosis is quite poor and she is most definitely acutely ill although I am not sure that is imminent at this time. We will santy nue with morphine, Haldol, lorazepam as needed. Appreciate hospice and social work input regarding disposition. (2) Comfort measures only status Impression: The plan is now to focus on her comfort as mentioned above. (3) Encephalopathy Impression: This likely secondary to her liver failure despite her ammonia being within normal limits. Plan is to focus on her comfort now as mentioned above. (4) Acute kidney injury Impression: This is likely due to volume depletion and she appears hypovolemic. The goal is now to focus on her comfort. (5) Hyponatremia Impression: Likely hypovolemic hyponatremia. No IV fluids given the goal is comfort. (6) Non-pressure ulcer of lower extremity Impression: We suspect this is likely due to peripheral vascular disease. The focus is now on her comfort. Qualifiers: Laterality: left Non-pressure ulcer stage: with fat layer exposed Qualified Code(s): L97.922 - Non-pressure chronic ulcer of unspecified part of left lower leg with fat layer exposed
[2021-10-06] MEDS: LORazepam 2 MG/ML VIAL IVP PRN ×2 (12:26→23:42)
[2021-10-07] MEDS: MORPHINE 2 MG/ML CARPUJECT IVP PRN ×4 (05:49→17:58)
[2021-10-07] MEDS: SODIUM CHLORIDE FLUSH 0.9% 10 ML SYRINGE IVP SCH ×2 (09:54→17:56)
[2021-10-07] MEDS: SODIUM CHLORIDE FLUSH 0.9% 10 ML SYRINGE IVP PRN (13:32)
--- NOTE | 2021-10-07 17:17 | PROVIDER PROGRESS NOTE ---
Subjective - Prog Note Date Prog Note Date: 10/07/21 - Subjective Subjective: is present at bedside. He is working on obtaining caregivers at home. His son is coming on Thursday and he can help with providing care for the patient. Current Medications - Current Medications Current Medications: Active Medications Glycopyrrolate (Glycopyrrolate 1 Mg/5 Ml Vial) 0.2 mg SUBQ Q4H PRN PRN Reason: Excessive secretions Haloperidol (Haloperidol 5 Mg/Ml Vial) 1 mg IVP Q2H PRN PRN Reason: Agitation Lorazepam (Lorazepam 2 Mg/Ml Vial) 1 mg IVP Q6H PRN PRN Reason: Anxiety/Agitation Last Admin: 10/06/21 23:42 Dose: 1 mg Morphine Sulfate (Morphine 2 Mg/Ml Carpuject) 2 mg IVP Q2HR PRN PRN Reason: PAIN Last Admin: 10/07/21 13:32 Dose: 2 mg Ondansetron HCl (Ondansetron 4 Mg/2 Ml Vial) 4 mg IVP Q6HR PRN PRN Reason: Nausea / Vomiting Sodium Chloride (Sodium Chloride Flush 0.9% 10 Ml Syringe) 10 ml IVP 0100,0900,1700 JESUS Last Admin: 10/07/21 09:54 Dose: 10 ml Sodium Chloride (Sodium Chloride Flush 0.9% 10 Ml Syringe) 10 ml IVP PRN PRN PRN Reason: NEEDED PER PROVIDER ORDERS Last Admin: 10/07/21 13:32 Dose: 10 ml Multivitamin 1 tab PO DAILY 09/16/21 Ondansetron Odt [Zofran Odt] 4 mg TL Q8H PRN 09/16/21 Pantoprazole [Protonix] 40 mg PO QDAC 09/16/21 Spironolactone [Aldactone] 100 mg PO DAILY 09/16/21 Thiamine [Vitamin B-1] 100 mg PO DAILY 09/16/21 oxyCODONE [Roxicodone] 5 mg PO Q6H PRN 09/16/21 predniSONE [Deltasone] 10 - 30 mg PO DAILY 10/05/21 Objective - Vital Signs/Intake & Output Reviewed Vital Signs: Yes Vital Signs: Vital Signs x48h Pulse BP Pulse Ox 10/07/21 13:32 100 73/28 L 87 L Intake & Output: Intake & Output 0610/05/21 10/06/21 10/07/21 23:59 23:59 23:59 23:59 Intake Total 0 1591.333 100 Output Total 410 468 215 150 Balance -410 1123.333 -115 -150 - Objective General Appearance: positive: No acute distress, Lethargic (She is quite lethargic today. Will not open her eyes.) Respiratory: positive: No respiratory distress Skin: positive: Other (Jaundiced. Dressing in place over the bilateral lower extremities.) - Lab Results Fish Bones: 10/04/21 17:09 10/04/21 17:09 Assessment/Plan - Problem List (1) End stage liver disease Impression: She has end-stage liver disease with a MELD score of 34 the focus is now on her comfort. She is much more lethargic today and is not nearly as responsive as she was yesterday. The goal is to try to get her home on hospice. The earliest they can admit her is on Thursday. She is not a safe discharge home right now as there is not enough support at home. The patient spouse is working on obtaining caregivers and their son is coming on Thursday and he can assist with providing care. Our plan is to try and get her home on Thursday if there is a safe discharge plan in place. At the same time, given her rapid decline over the last 24 hours, she may also be imminently dying and may pass away prior to this. The patient's expresses understanding of this. We will continue with morphine as needed for pain control and dyspnea. Ativan as needed for agitation. (2) Comfort measures only status Impression: The plan is now to focus on her comfort as mentioned above. (3) Encephalopathy Impression: This likely secondary to her liver failure despite her ammonia being within normal limits. Plan is to focus on her comfort now as mentioned above. (4) Acute kidney injury Impression: This is likely due to volume depletion and she appears hypovolemic. The goal is now to focus on her comfort. (5) Hyponatremia Impression: Likely hypovolemic hyponatremia. No IV fluids given the goal is comfort. (6) Non-pressure ulcer of lower extremity Impression: We suspect this is likely due to peripheral vascular disease. The focus is now on her comfort. Qualifiers: Laterality: left Non-pressure ulcer stage: with fat layer exposed Qualified Code(s): L97.922 - Non-pressure chronic ulcer of unspecified part of left lower leg with fat layer exposed
[2021-10-08] MEDS: SODIUM CHLORIDE FLUSH 0.9% 10 ML SYRINGE IVP SCH ×4 (00:01→23:31)
[2021-10-08] MEDS: MORPHINE 2 MG/ML CARPUJECT IVP PRN ×5 (00:05→23:31)
[2021-10-08] MEDS: GLYCOPYRROLATE 1 MG/5 ML VIAL SUBQ PRN ×2 (06:28→21:05)
[2021-10-08 11:52] VITALS: BP 92/47
[2021-10-08] MEDS: LORazepam 2 MG/ML VIAL IVP PRN (16:35)
--- NOTE | 2021-10-08 16:55 | PROVIDER PROGRESS NOTE ---
Assessment/Plan - Problem List (1) End stage liver disease Assessment/Plan: She has end-stage liver disease with a MELD score of 34 the focus is now on her comfort. She is comatose today but appears in no distress. The goal is to try to get her home on hospice. The earliest they can admit her is on Thursday. She is not a safe discharge home right now as there is not enough support at home. The patient spouse is working on obtaining caregivers and their son is coming on Thursday and he can assist with providing care. Our plan is to try and get her home on Thursday and Hospice to pick her up on their service on Thu. At the same time, given her rapid decline over the last 48 hours, she may also be imminently dying and may pass away prior to this. The patient's expresses understanding of this. We will continue with morphine as needed for pain or dyspnea. Ativan as needed for agitation. (2) Comfort measures only status Impression: The plan is now to focus on her comfort as mentioned above. (3) Encephalopathy Impression: This likely secondary to her liver failure despite her ammonia being within normal limits. Plan is to focus on her comfort now as mentioned above. (4) Acute kidney injury Impression: This is likely due to volume depletion and she appears hypovolemic. The goal is now to focus on her comfort. (5) Hyponatremia Impression: Likely hypovolemic hyponatremia. No IV fluids given the goal is comfort. (6) Non-pressure ulcer of lower extremity Impression: We suspect this is likely due to peripheral vascular disease. The focus is now on her comfort. Qualifiers: Laterality: left Non-pressure ulcer stage: with fat layer exposed Qualified Code(s): L97.922 - Non-pressure chronic ulcer of unspecified part of left lower leg with fat layer exposed - Current Meds Current Meds: Current Medications Generic Name Dose Route Start Last Admin Trade Name Freq PRN Reason Stop Dose Admin Glycopyrrolate 0.2 mg 10/05/21 11:44 10/08/21 06:28 Glycopyrrolate 1 Mg/5 Ml Vial SUBQ 0.2 mg Q4H PRN Administration Excessive secretions Lorazepam 1 mg 10/05/21 11:44 10/08/21 16:35 Lorazepam 2 Mg/Ml Vial IVP 1 mg Q6H PRN Administration Anxiety/Agitation Morphine Sulfate 2 mg 10/04/21 21:10 10/08/21 15:41 Morphine 2 Mg/Ml Carpuject IVP 2 mg Q2HR PRN Administration PAIN Sodium Chloride 10 ml 10/05/21 01:00 10/08/21 15:41 Sodium Chloride Flush 0.9% 10 Ml Syringe IVP 10 ml 0100,0900,1700 JESUS Administration Sodium Chloride 10 ml 10/04/21 17:55 10/07/21 13:32 Sodium Chloride Flush 0.9% 10 Ml Syringe IVP 10 ml PRN PRN Administration NEEDED PER PROVIDER ORDERS - Lab Result Fish Bone Diagrams: 10/04/21 17:09 10/04/21 17:09 - Additional Planning My Orders: My Active Orders 10/08/21 16:39 NPO except Meds [DIET] Subjective - Subjective Nursing Reports: Other (Somnolent, does not awaken) Objective Vital Signs: Vital Signs - 24 hr 10/08/21 11:46 Temperature 36.3 C L Heart Rate [ 99 Monitoring electrodes] Respiratory 15 Rate Blood Pressure 92/47 L [Left Brachial artery] O2 Saturation 85 L Oxygen O2 Source Room air I&O (Last 24 Hrs): Intake and Output Totals x24h 10/06/21 10/07/21 10/08/21 23:59 23:59 23:59 Intake Total 100 0 0 Output Total 215 230 120 Balance -115 -230 -120 General: Other (Comattose) HEENT: Other (dry oral mucosa. Sclerae icteric) Neuro: Other (Comatose, no response to painful stimuli) Cardiovascular: Regular rate, No murmurs Respiratory: No respiratory distress, Breath sounds nml Abdomen: Soft, No tenderness Extremities: No edema Skin: No rashes (Multiple ecchymoses of extremotoes and R knee, skin is icteric) - Results Results: Laboratory Results WBC 8.4 x10^3/uL (4.8-10.8) 10/04/21 17:09 RBC 3.49 10^6/uL (4.20-5.40) L 10/04/21 17:09 Hgb 11.2 g/dL (12.0-16.0) L 10/04/21 17:09 Hct 33.8 % (37.0-47.0) L 10/04/21 17:09 MCV 96.8 fL (81.0-99.0) 10/04/21 17:09 MCH 32.1 pg (27.0-31.0) H 10/04/21 17:09 MCHC 33.1 g/dL (32.0-36.0) 10/04/21 17:09 RDW 22.0 % (12.0-15.0) H 10/04/21 17:09 Plt Count 160 10^3/uL (130-450) 10/04/21 17:09 MPV 9.4 fL (7.9-10.8) 10/04/21 17:09 Neut # (Auto) 5.8 10^3/uL (1.5-6.6) 10/04/21 17:09 Lymph # (Auto) 1.3 10^3/uL (1.5-3.5) L 10/04/21 17:09 [place] # (Auto) 1.0 10^3/uL (0.0-1.0) 10/04/21 17:09 Eos # (Auto) 0.1 10^3/uL (0.0-0.7) 10/04/21 17:09 Baso # (Auto) 0.0 10^3/uL (0.0-0.1) 10/04/21 17:09 Absolute Nucleated RBC 0.00 x10^3/uL 10/04/21 17:09 Nucleated RBC % 0.0 /100WBC 10/04/21 17:09 Manual Slide Review Indicated 10/04/21 17:09 WBC Morphology NORMAL APPEARANCE (NORMAL) 10/04/21 17:09 Platelet Estimate NORMAL (130-450,000) (NORMAL) 10/04/21 17:09 Platelet Morphology NORMAL APPEARANCE (NORMAL) 10/04/21 17:09 RBC Morph Micro Appear 3+ ANISOCYTOSIS (NORMAL) 10/04/21 17:09 PT 27.9 secs (9.9-12.6) H 10/04/21 17:09 INR 2.5 (0.8-1.2) H 10/04/21 17:09 Sodium 120 mmol/L (135-145) L* 10/04/21 17:09 Potassium 5.0 mmol/L (3.5-5.0) 10/04/21 17:09 Chloride 88 mmol/L (101-111) L 10/04/21 17:09 Carbon Dioxide 21 mmol/L (21-32) 10/04/21 17:09 Anion Gap 11.0 (6-13) 10/04/21 17:09 BUN 37 mg/dL (6-20) H 10/04/21 17:09 Creatinine 1.3 mg/dL (0.4-1.0) H 10/04/21 17:09 Estimated GFR (MDRD) 41 (>89) L 10/04/21 17:09 Glucose 108 mg/dL (70-100) H 10/04/21 17:09 Lactic Acid 2.5 mmol/L (0.5-2.2) H 10/04/21 17:09 Calcium 9.2 mg/dL (8.5-10.3) 10/04/21 17:09 Phosphorus 4.1 mg/dL (2.5-4.6) 10/04/21 17:09 Magnesium 1.8 mg/dL (1.7-2.8) 10/04/21 17:09 Total Bilirubin 19.4 mg/dL (0.2-1.0) H 10/04/21 17:09 AST 97 IU/L (10-42) H 10/04/21 17:09 ALT 54 IU/L (10-60) 10/04/21 17:09 Alkaline Phosphatase 128 IU/L (42-121) H 10/04/21 17:09 Ammonia 14.5 umol/L (7-35) 10/04/21 17:09 Total Protein 7.3 g/dL (6.7-8.2) 10/04/21 17:09 Albumin 2.4 g/dL (3.2-5.5) L 10/04/21 17:09 Globulin 4.9 g/dL (2.1-4.2) H 10/04/21 17:09 Albumin/Globulin Ratio 0.5 (1.0-2.2) L 10/04/21 17:09 Urine Color DARK YELLOW 10/04/21 22:42 Urine Clarity CLEAR (CLEAR) 10/04/21 22:42 Urine pH 6.0 PH (5.0-7.5) 10/04/21 22:42 Ur Specific [place] 1.020 (1.002-1.030) 10/04/21 22:42 Urine Protein NEGATIVE mg/dL (NEGATIVE) 10/04/21 22:42 Urine Glucose (UA) NEGATIVE mg/dL (NEGATIVE) 10/04/21 22:42 Urine Ketones NEGATIVE mg/dL (NEGATIVE) 10/04/21 22:42 Urine Occult Blood NEGATIVE (NEGATIVE) 10/04/21 22:42 Urine Nitrite POSITIVE (NEGATIVE) H 10/04/21 22:42 Urine Bilirubin MODERATE (NEGATIVE) H 10/04/21 22:42 Urine Urobilinogen 0.2 (NORMAL) E.U./dL (NORMAL) 10/04/21 22:42 Ur Leukocyte Esterase NEGATIVE (NEGATIVE) 10/04/21 22:42 Urine RBC 0-5 /HPF (0-5) 10/04/21 22:42 Urine WBC 0-3 /HPF (0-5) 10/04/21 22:42 Ur Squamous Epith Cells RARE Squamous (<= Few) 10/04/21 22:42 Urine Bacteria Few /HPF (None Seen) 10/04/21 22:42 Urine Casts 0-2 Hyaline Casts /LPF 10/04/21 22:42 Urine Culture Comments INDICATED 10/04/21 22:42 Nasal Screen MRSA (PCR) NEGATIVE (NEGATIVE) 10/04/21 19:40 Ethyl Alcohol 7.5 mg/dL 10/04/21 17:09 SARS-CoV-2 (PCR) NOT DETECTED 10/04/21 18:23 - Procedures Procedures: Procedures EXCISION OF ASCENDING COLON, ENDO, DIAGN (03/15/21) EXCISION OF L FOOT SUBCU/FASCIA, OPEN APPROACH (09/15/21) EXCISION OF L LOW LEG SUBCU/FASCIA, OPEN APPROACH (09/15/21) REPLACEMENT OF LEFT LENS WITH SYNTH SUB, PERC APPROACH (04/08/18)
[2021-10-08] MEDS ORDERED: MORPHINE SOL 10 MG/0.5 ML ORAL SYRINGE PO PRN (19:59)
[2021-10-08] MEDS ORDERED: LORazepam 2 MG/ML VIAL IVP PRN (19:59)
[2021-10-08] MEDS: SODIUM CHLORIDE FLUSH 0.9% 10 ML SYRINGE IVP PRN (20:57)
--- NOTE | 2021-10-09 04:46 | Discharge Plan ---
Discharge Plan Problem Reviewed?: Yes Disposition: 20 No Smoking: If you smoke, Please STOP! Call for help.
--- NOTE | 2021-10-09 04:46 | DISCHARGE SUMMARY ---
Discharge Summary Admit Date: 10/04/21 Discharge Date: 10/09/21 Discharging Provider: Sofia Leone Primary Care Provider: Satinder Aguilar Code Status: Do Not Attempt Resuscitation Condition at Discharge: Poor Discharge Disposition: 20 - DIAGNOSES Admission Diagnoses: 1. Metabolic encephalopathy 2. Liver failure 3. Alcoholic liver disease with ascites 4. Acute kidney injury 5. Dehydration 6. Alcohol abuse 7. Lactic acidosis due to #2 8. Hyponatremia That is chronic with acute worsening 9. History of pulmonary embolism 10. DO NOT RESUSCITATE status 11. Hypomagnesemia 12. Nonpressure leg ulcers that may be ischemic due to peripheral vascular disease 13. Chronic pain syndrome due to back pain and peripheral neuropathy and leg ul cers Discharge Diagnoses with Status of Each Condition: 1. Metabolic encephalopathy: Patient was on comfort care measured with plans to subsequently transition to hospice. Patient . 2. Liver failure: Patient was on comfort care measured with plans to subsequently transition to hospice. Patient . 3. Alcoholic liver disease with ascites: Patient was on comfort care measured with plans to subsequently transition to hospice. Patient . 4. Acute kidney injury 5. Dehydration 6. Alcohol abuse 7. Lactic acidosis due to #2 8. Hyponatremia That is chronic with acute worsening 9. History of pulmonary embolism 10. DO NOT RESUSCITATE status 11. Hypomagnesemia 12. Nonpressure leg ulcers that may be ischemic due to peripheral vascular disease 13. Chronic pain syndrome due to back pain and peripheral neuropathy and leg ulcers - HPI History of Present Illness: describes her is a healthy lady except that she has chronic back pain. Because of the "opioid crisis" she really was not able to get very many prescription pain medications anymore. And she was starting to self medicate with alcohol. She has always drank 1 or 2 cocktails every day for over 20 years that he has known her. But in the last few years she was probably drinking more than that. He feels that overnight she became "really sick". He brought her to the emergency room here but we had no beds and she was transferred to [facility]. She was admitted to [facility] September 04, 2021 through September 07, 2021. She was given a diagnosis of acute alcoholic hepatitis and discharged on diuretics as well as prednisone for 28 days. She has a history of fatty liver over 20 years ago and on top of that has also consumed alcohol on a daily basis in the form of cocktails for the last 20 years. Her is angry. He is resigned to her poor prognosis and states "it is what it is" but he is not happy that all those years that she had fatty liver, no one told them that it could progress to liver failure/cirrhosis needing liver transplantation. She was told not to take Tylenol but she was never told not to drink alcohol he states. She developed ascites, lower extremity edema, and has not had any symptoms of esophageal varices. There has been no melena, hematochezia, or hematemesis. After discharge from [facility], she was seen by her primary care provider who referred her to [facility] and she was seen September 13, 2021. At that exam she had a diste nded abdomen with fluid wave, no rebound tenderness. No hepatosplenomegaly. She had an appropriate mood and affect, she was oriented to person place and time with intact judgment. CT of the abdomen was reviewed from June 2021 and she had focal dense atheromatous calcification within the aorta at L3 with focal high-grade stenosis. Severe stenosis at the origins of the bilateral common iliac artery. Moderate focal stenosis within midportion of left SFA,. With her visit on September 13 he added furosemide in addition to her spironolactone. She was counseled on fluid intake, low-sodium diet and alcoholic abstinence. He was waiting for her acute hepatitis to resolve before he was going to do a liver biopsy. After her September 13's visit, She was seen in our emergency room September 15. She had woken up that morning confused and unable to stand. She was unable to answer questions when EMS was called so she is brought to the emergency room. She had a high heart rate of 120 with significant redness, swelling and pain on the dorsum of her left foot. White cell count was elevated at 17.9, and lactic acid was 3.4. She had a distended protuberant abdomen secondary to ascites. She met criteria for sepsis and received antibiotics and IV fluids. Her lactic acid became normal, white cell count was 11.1. She really wanted to be discharged and she was discharged to [facility]. She had 4 nonpressure ulcers at her left lower extremity. Discussion over her high meld score with her end-stage liver disease was held with her and her . They declined paracentesis. Lactulose was increased at discharge. And her sinus tachycardia remained at about 117. Today her called ambulance because she is just not been doing well. She has increasingly altered mental status and has slurred speech, disorientation. Generalized weakness that does not allow her to get up out of bed.He states that he has been taking care of her 17/11 since her discharge from the hospital. He is overwhelmed. In addition to worsening confusion, he had a brought to the hospital because he feels he can no longer take care of her. She has been seen by wound care at the medical ambulatory clinic once. And she has been seen by [facility] twice for her legs. He calls EMS when she will not take her medications, and she will then take her medications for them but she will not take them when he asked her to. EMS is who told the ER doctor that the patient was noncompliant with medications. She could not be encouraged to take them by her home health nurse today a well. As such her called EMS and EMS brought her to the emergency room. She was jaundiced, lethargic with a Glascow scale of 14. She had pain in her legs and both of them were wrapped. Temperature was 36.4. Heart rate 101. Respirations 11. Blood pressure 122/77. 97% saturated. She was confused. Belly was mildly distended and nontender to palpation. Jaundiced. Sodium was 120. Potassium 5. BUN 37, creatinine 1.3. Lactic acid 2.5. Bilirubin is 19.4. AST 97. ALT 54. Alk phos 128. Ammonia level at discharge on September 19 was 75, antedates 14. White cell count is 8.4. Hemoglobin 11.2. Platelets 160. CT of the head had no acute changes. Chest x- ray had an enlarging left pleural effusion. No urinalysis has been done yet. - HOSPITAL COURSE Hospital Course: She was admitted to the ICU from the emergency department on 10/04/2021. Plans were for supportive therapy and control of symptoms. She was also to receive IV fluids. At the time she had a meld score of 34 which reflected a 60% rate of mortality in the next 3 months. An advance care plan was done between the patient's partner (Jorge Thakkar) and the provider. He requested focus on comfort measures While he wanted vital signs, labs done to see if she was responding to fluids and hydration, he did not want procedures. He did not want transfer to an outside facility. He is goal was to take her home and have her at home as long as he could get some help. On 10/09/21 it was brought to the provider's attention that the patient was unresponsive. Upon presentation to bedside, she was unresponsive to tactile and verbal stimuli. There were no radial or carotid pulses. There were no heart or breath sounds on auscultation. Pupils were fixed, dilated and unresponsive to light. Patient was noted at 01:50am on 10/09/21. Patient partner/ next of kin was notified. home was contacted. - ALLERGIES Allergies/Adverse Reactions: Allergies Allergy/AdvReac Type Severity Reaction Status Date / Time prednisone Allergy Hallucinati Verified 10/04/21 16:56 ons Penicillins AdvReac Hives Verified 10/04/21 16:56 Sulfa (Sulfonamide AdvReac Hives Verified 10/04/21 16:56 Antibiotics) - MEDICATIONS Home Medications: Ambulatory Orders Medication Instructions Recorded Confirmed Furosemide [Lasix] 20 mg PO DAILY #30 tablet 08/19/21 10/05/21 Multivitamin 1 tab PO DAILY 09/16/21 10/05/21 Ondansetron Odt [Zofran Odt] 4 mg TL Q8H PRN 09/16/21 10/05/21 Pantoprazole [Protonix] 40 mg PO QDAC 09/16/21 10/05/21 Spironolactone [Aldactone] 100 mg PO DAILY 09/16/21 10/05/21 Thiamine [Vitamin B-1] 100 mg PO DAILY 09/16/21 10/05/21 oxyCODONE [Roxicodone] 5 mg PO Q6H PRN 09/16/21 10/05/21 Lactulose 15 ml PO TID #600 ml 09/19/21 10/05/21 rOPINIRole [Requip] 0.25 mg PO QPM #30 tablet 09/19/21 10/05/21 predniSONE [Deltasone] 10 - 30 mg PO DAILY 10/05/21 10/05/21 - LABS Result Diagrams: 10/04/21 17:09 10/04/21 17:09 - TIME SPENT Time Spent in Discharge (Minutes): 15
--- OUTSIDE RECORDS SUMMARY | 2021-10-17 12:33 | EXTERNAL MEDICAL SUMMARY RPT | Continuity of Care Document ---
:1955 Author Organization [facility] Address [address] [id number] Phone Allergies No information. Encounters No information. Functional Status No information. Immunizations No information. Medications No information. Problems No information. Procedures No information. Results/Labs test date author facility value unit interpret ation Result panel 1 (unknown) (no (unknown) (unknown) (no value) (units (unk nown) date) unknown) (unknown) (no (unknown) (unknown) [address] [place] [address] (units (unknown) date) unknown) (unknown) (no (unknown) (unknown) [place], [place] (units ( unknown) date) [id number] unknown) (unknown) (no (unknown) (unknown) [facility] (units (unknown) date) unknown) (unknown) (no (unknown) (unknown) Magnetic (units (unkno wn) date) Resonance Report unknown) (unknown) (no (unknown) (unknown) Signed (units (unkno wn) date) unknown) (unknown) (no (unknown) (unknown) (no value) (units (unk nown) date) unknown) (unknown) (no (unknown) (unknown) 07/25/21 (units (unkno wn) date) unknown) (unknown) (no (unknown) (unknown) 1. Prior left (units ( unknown) date) total hip unknown) arthroplasty with susceptibility artifacts. Mild to (unknown) (no (unknown) (unknown) 2. Fluid (units (unkno wn) date) distension of unknown) left trochanteric bursa concerning for bursitis. No (unknown) (no (unknown) (unknown) 3. Moderate (units (un known) date) amount of pelvic unknown) free fluid suggest clinical correlation. (unknown) (no (unknown) (unknown) Approved by: (units (u nknown) date) Sina Jackson M.D. on unknown) 07/25/2021 at 17:14 (unknown) (no (unknown) (unknown) Bones: Patient (units (unknown) date) is status post unknown) left total hip arthroplasty with significant (unknown) (no (unknown) (unknown) COMPARISON: [facility] (units (unknown) date) Outside Film, MR, unknown) MR HIP LEFT WITHOUT CONTRAST, 07/04/2020, (unknown) (no (unknown) (unknown) Dictated by: (units (u nknown) date) Sina Jackson M.D. on unknown) 07/25/2021 at 16:58 (unknown) (no (unknown) (unknown) FINDINGS: (units (unkn own) date) unknown) (unknown) (no (unknown) (unknown) IMPRESSION: (units (un known) date) unknown) (unknown) (no (unknown) (unknown) INDICATIONS: (units (u nknown) date) Unspecified unknown) disorder of synovium and tendon, left thigh (unknown) (no (unknown) (unknown) Image quality: (units (unknown) date) Excellent. unknown) (unknown) (no (unknown) (unknown) Noncontrast (units (un known) date) coronal and axial unknown) T1 spin echo and STIR through the bony pelvis. (unknown) (no (unknown) (unknown) Soft tissues: (units ( unknown) date) Visualized unknown) muscles demonstrate normal bulk and internal signal. (unknown) (no (unknown) (unknown) TECHNIQUE: (units (unk nown) date) unknown) (unknown) (no (unknown) (unknown) Tendons: The (units ( unknown) date) gluteus medius unknown) and minimus tendons appear intact, without (unknown) (no (unknown) (unknown) The origin of (units ( unknown) date) the hamstring unknown) tendon is intact at the ischial tuberosity, as well (unknown) (no (unknown) (unknown) associated (units (unk nown) date) sacrotuberous unknown) ligament. The straight and reflected heads of the (unknown) (no (unknown) (unknown) atrophy. The (units ( unknown) date) nearby proximal unknown) iliotibial band also appears intact. 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 No acute fracture or dislocation is seen. (unknown) (no (unknown) (unknown) bladder wall (units (u nknown) date) abnormality. unknown) Uterus and bilateral adnexa show no gross (unknown) (no (unknown) (unknown) effusions. (units (unk nown) date) There is unknown) suggestion of moderate amount of pelvic free fluid. (unknown) (no (unknown) (unknown) evidence of (units (un known) date) avascular unknown) necrosis of femoral head. (unknown) (no (unknown) (unknown) femoris muscle (units (unknown) date) origin appear unknown) intact, as well as the conjoint tendon. 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 unknown) No marrow edema. No acute fracture or (unknown) (no (unknown) (unknown) seen. There is (units (unknown) date) no marrow edema. unknown) No suspicious intraosseous lesion. No (unknown) (no (unknown) (unknown) sigmoid (units (unkno wn) date) diverticulosis is unknown) seen without CT evidence of acute diverticulitis. No (unknown) (no (unknown) (unknown) susceptibility (units (unknown) date) artifacts. Mild unknown) to moderate right hip joint osteoarthritic (unknown) (no (unknown) (unknown) tendon signal (units ( unknown) date) abnormality is unknown) seen in pelvis and bilateral hip. (unknown) (no (unknown) (unknown) the left (units (unkno wn) date) trochanteric unknown) bursa is seen suggestive of bursitis. The iliopsoas (unknown) (no (unknown) (unknown) 15:00. (units (unkno wn) date) unknown) (unknown) (no (unknown) (unknown) Accession (units (unkn own) date) Number: unknown) [id number] (unknown) (no (unknown) (unknown) Age/Sex: 66 / F (units (unknown) date) Date of unknown) Service: (unknown) (no (unknown) (unknown) : 1955 (units (unknown) date) Acct:[id number] unknown) (unknown) (no (unknown) (unknown) Extensive (units (unkn own) date) unknown) (unknown) (no (unknown) (unknown) Loc: MRI (units (unkno wn) date) unknown) (unknown) (no (unknown) (unknown) [id number] (units (unk nown) date) unknown) (unknown) (no (unknown) (unknown) No joint (units (unkno wn) date) unknown) (unknown) (no (unknown) (unknown) Ordering (units (unkno wn) date) Provider: unknown) Luís Saleh MD (unknown) (no (unknown) (unknown) PROCEDURE: MR (units (unknown) date) PELVIS WO CON unknown) (unknown) (no (unknown) (unknown) Patient: (units (unkno wn) date) Florencia Melendez unknown) MR#: (unknown) (no (unknown) (unknown) Procedure: MR (units ( unknown) date) pelvis wo con unknown) (unknown) (no (unknown) (unknown) abnormality.. (units ( unknown) date) unknown) (unknown) (no (unknown) (unknown) as the (units (unkno wn) date) unknown) (unknown) (no (unknown) (unknown) associated (units (unk nown) date) muscle unknown) (unknown) (no (unknown) (unknown) changes are (units (un known) date) unknown) (unknown) (no (unknown) (unknown) dislocation. No (units (unknown) date) unknown) (unknown) (no (unknown) (unknown) distending of (units ( unknown) date) unknown) (unknown) (no (unknown) (unknown) evidence of (units (un known) date) unknown) (unknown) (no (unknown) (unknown) gross (units (unkno wn) date) unknown) (unknown) (no (unknown) (unknown) moderate (units (unkno wn) date) unknown) (unknown) (no (unknown) (unknown) muscle or (units (unkn own) date) unknown) (unknown) (no (unknown) (unknown) rectus (units (unkno wn) date) unknown) (unknown) (no (unknown) (unknown) syndrome. (units (unkn own) date) unknown) (unknown) (no (unknown) (unknown) tendon appears (units (unknown) date) unknown) Social History No information. Vital Signs No information.
== END 2021-10-09 01:50 | disposition expired | DRG 441 ==
LOC: EDUNIT# → ED 16:43 → ICU 17:55 → MS2 10-05 14:35
PROVIDERS: ADMIT Specialist; ATTEND Internal Medicine
DX: K72.10 Chronic hepatic failure without coma (principal); K72.11 Chronic hepatic failure with coma; D72.829 Elevated white blood cell count, unspecified; K70.30 Alcoholic cirrhosis of liver without ascites; G93.41 Metabolic encephalopathy; N17.9 Acute kidney failure, unspecified; E87.2 Acidosis; L97.929 Non-pressure chronic ulcer of unspecified part of left lower leg with unspecified severity; E87.1 Hypo-osmolality and hyponatremia; Z20.822 Contact with and (suspected) exposure to COVID-19; L97.919 Non-pressure chronic ulcer of unspecified part of right lower leg with unspecified severity; L97.922 Non-pressure chronic ulcer of unspecified part of left lower leg with fat layer exposed; E86.0 Dehydration; F10.10 Alcohol abuse, uncomplicated; Z66 Do not resuscitate; E83.42 Hypomagnesemia; G89.4 Chronic pain syndrome; G62.9 Polyneuropathy, unspecified; I73.9 Peripheral vascular disease, unspecified; M54.9 Dorsalgia, unspecified; K70.11 Alcoholic hepatitis with ascites; R60.0 Localized edema; R41.82 Altered mental status, unspecified; R53.1 Weakness; T50.916A Underdosing of multiple unspecified drugs, medicaments and biological substances, initial encounter; I10 Essential (primary) hypertension; M48.00 Spinal stenosis, site unspecified; R32 Unspecified urinary incontinence; R15.9 Full incontinence of feces; R00.0 Tachycardia, unspecified; Z91.128 Patient's intentional underdosing of medication regimen for other reason; Z86.711 Personal history of pulmonary embolism; Y92.9 Unspecified place or not applicable; Z51.5 Encounter for palliative care; K21.9 Gastro-esophageal reflux disease without esophagitis; Z87.891 Personal history of nicotine dependence; Z74.01 Bed confinement status
CPT/HCPCS: 36415; 70450; 71045; 80053; 81001; 82140; 83605; 83735; 84100; 85025; 85610; 87040; 87086; 87150; 87635; 99281; 99285; A9270; G0480; J2060; 80048; 80076; 80320